=== PATIENT | female | born 1970 | race Caucasian/White ===

== ENCOUNTER 2017-04-30 14:31 | Outpatient (RCR) | payer BC ==
[~2017-04-30 14:31] MED LIST: FEXO180T94 PO; LORCET PO; RNT150T PO
== END 2017-05-02 | disposition home or self-care (01) ==
PROVIDERS: ATTEND Family Medicine
DX: M54.2 Cervicalgia (principal)

== ENCOUNTER → 2017-07-03 | Outpatient (CLI) | payer BC ==
--- NOTE | 2017-07-06 22:23 | Diagnostic Imaging Report ---
Bilateral screening mammogram 2D views with tomosynthesis The current study was also evaluated with a Computer Aided Detection (CAD) system. INDICATION: Screening. No current complaints stated on the questionnaire. COMPARISON: 11/09/2015. FINDINGS: The breasts are composed of heterogeneously dense parenchyma which may decrease mammographic sensitivity. There is no mass, architectural distortion, or suspicious cluster of calcifications. Allowing for technique and positional differences, no suspicious change is seen. IMPRESSION: Dense breasts with no definite change. ACR BI-RADS Category 2: Benign findings. Result letter will be mailed to the patient. Note: At least 10% of breast cancer is not imaged by mammography. Dictated by: Dictated on workstation # [id number]
== END ==
LOC: RAD 14:33
PROVIDERS: ATTEND Obstetrics & Gynecology
DX: Z12.31 Encounter for screening mammogram for malignant neoplasm of breast (principal)
CPT/HCPCS: 77067

== ENCOUNTER → 2018-07-20 | Outpatient (CLI) | payer BC ==
--- NOTE | 2018-07-20 15:37 | Diagnostic Imaging Report ---
INDICATION: Routine screening. COMPARISON: Comparison is made with prior mammograms from 07/03/2017 and 11/09/2015. TECHNIQUE: 2D and 3D bilateral screening mammography was performed with computer-aided detection (CAD) system. FINDINGS: Both breasts remain heterogeneously dense, limiting the sensitivity of mammography. The parenchymal pattern is stable. No dominant mass or malignant appearing microcalcifications are seen. The axillae are unremarkable. IMPRESSION: No mammographic features suspicious for malignancy are identified. ACR BI-RADS Category 1: Negative. Result letter will be mailed to the patient. Note: At least 10% of breast cancer is not imaged by mammography. Dictated by: Dictated on workstation # [id number]
== END ==
LOC: RAD 14:25
PROVIDERS: ATTEND Obstetrics & Gynecology
DX: Z12.31 Encounter for screening mammogram for malignant neoplasm of breast (principal)
CPT/HCPCS: 77067

== ENCOUNTER 2018-09-29 13:45 | Outpatient (RCR) | payer BC | END 2018-12-12 | disposition home or self-care (01) | PROVIDERS: ATTEND Physician Assistant | DX: M54.16 Radiculopathy, lumbar region (principal) ==

== ENCOUNTER → 2019-09-19 | Outpatient (CLI) | payer BC ==
--- NOTE | 2019-09-19 16:28 | Diagnostic Imaging Report ---
INDICATION: Neck mass. FINDINGS: There is a well-circumscribed mass in the posterior neck measuring 4.5 x 3.4 x 1.4 cm. This is nonspecific, however, likely reflects lipoma. Other soft tissue neoplasm certainly cannot be excluded. Recommend clinical correlation and if warranted follow-up with MRI. IMPRESSION: Nonspecific well-circumscribed mass in the posterior left neck, likely lipoma, although other soft tissue neoplasm cannot be excluded. Recommend clinical correlation and if warranted follow-up with MRI. Dictated by: Dictated on workstation # [id number]
--- NOTE | 2019-09-19 16:31 | Diagnostic Imaging Report ---
INDICATION: Screening. The current study was also evaluated with a Computer Aided Detection (CAD) system. 3-D Tomographic imaging was also performed. COMPARISON: Comparison made with prior examinations from 07/20/2018, 07/03/2017, and 11/09/2015. FINDINGS: The fibroglandular tissue is heterogeneously dense bilaterally. There is no dominant mass, spiculated lesion, or suspicious calcification identified. The skin, nipples, and axillae are unremarkable. IMPRESSION: Negative. ACR BI-RADS Category 1: Negative. Result letter will be mailed to the patient. Note: At least 10% of breast cancer is not imaged by mammography. Dictated by: Dictated on workstation # [id number]
== END ==
LOC: RAD 15:08
PROVIDERS: ATTEND Nurse Practitioner Family
DX: Z12.31 Encounter for screening mammogram for malignant neoplasm of breast (principal); D17.0 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, face and neck
CPT/HCPCS: 76536; 77067

== ENCOUNTER 2019-10-06 05:32 | Outpatient (CLI) | payer BC ==
[~2019-10-06] VITALS: Ht 157 cm; Wt 77.2 kg
[2019-10-06] MEDS ORDERED: OMEP20TA7 PO (12:40)
[2019-10-06] MEDS ORDERED: OMEG-160 PO (12:40)
[2019-10-06] MEDS ORDERED: FEXO180T84 PO (12:40)
[2019-10-06] MEDS ORDERED: FLAX10004 PO (12:40)
== END 2019-10-06 12:59 | disposition home or self-care (01) ==
LOC: PREOP 05:32
PROVIDERS: ATTEND Surgery
DX: Z01.818 Encounter for other preprocedural examination (principal)

== ENCOUNTER 2019-10-13 07:23 | Day surgery (SDC) | payer BC ==
[2019-10-13] VITALS (9 sets, daily range): BP systolic 109–135; BP diastolic 66–82
[~2019-10-13] VITALS: Ht 157 cm; Wt 77.2 kg
[~2019-10-13 07:23] MED LIST changes: +FEXO180T84 PO; +FLAX10004 PO; +OMEG-160 PO; +OMEP20TA7 PO
[2019-10-13] MEDS ORDERED: BUP/EPI 0.5% 1:200,000 (SENSORCAINE) 30 ML VIAL ONE (07:25)
[2019-10-13] MEDS ORDERED: LIDOCAINE 1% INJ 20 ML 20 ML VIAL ONE (07:46)
[2019-10-13] MEDS: LACTATED RINGERS 1,000 ML IV PRN ×3 (07:55→10:19)
[2019-10-13] MEDS ORDERED: ceFAZolin 2 GM IV Premixed 50 ML ONE (08:08)
[2019-10-13] MEDS ORDERED: ceFAZolin 2 GM IV Premixed 50 ML IV ONE (08:15)
[2019-10-13] MEDS ORDERED: ceFAZolin 2 GM/50 ML NS 50 ML IV ONE (08:15)
--- NOTE | 2019-10-13 08:19 | Progress Note-Pre Operative ---
Pre-Operative Progress Note H&P Reviewed The H&P was reviewed, patient examined and no changes noted. Date Seen by Provider: Oct 13, 2019 Time Seen by Provider: 08:15 Date H&P Reviewed: Oct 13, 2019 Time H&P Reviewed: 08:10 Pre-Operative Diagnosis: Symptomatic lipoma posterior neck and left flank HOLLIE PUGH APRN Oct 13, 2019 08:19
[2019-10-13] MEDS ORDERED: HYDR-3870 PO (08:23)
--- NOTE | 2019-10-13 08:24 | Discharge Inst-Surgical ---
D/C Lap Instructions-KIDO Reconcile Patient Problems Problems Reviewed?: Yes New, Converted, or Re-Newed RX: RX on Chart Follow Up Appt in 2 weeks Activity as tolerated No driving for 24 hours No driving while on pain medications Incentive Spirometry use every 2 hours while awake Regular Diet Symptoms to Report: Fever over 101 degree F, Nausea/Vomiting Infection Signs and Symptoms to report: Increased redness, Foul odor of wound, Increased drainage Bathing instructions: May shower Operative Area Clean/Dry; Keep incision clean/dry If any problems/questions: Contact your physician or go to Emergency Room HOLLIE PUGH APRN Oct 13, 2019 08:24
[2019-10-13] MEDS ORDERED: ACETAMINOPHEN 325 MG TABLET PO PRN (08:30)
[2019-10-13] MEDS ORDERED: morphine INJ 10 MG/ML 1ML (SYR OR VIAL) IVP PRN (08:30)
[2019-10-13] MEDS ORDERED: ONDANSETRON 4 MG/2 ML (SDV) Z0FRAN IVP PRN ×2 (08:30→11:00)
[2019-10-13] MEDS ORDERED: HYDROcodone/APAP 5 MG/325 MG (LORTAB) TAB PO ONE (08:30)
[2019-10-13] MEDS ORDERED: GLYCOPYRROLATE 0.2 MG/ML (ROBINUL) 2 ML VIAL ONE (08:49)
[2019-10-13] MEDS ORDERED: NEOSTIGMINE 3 MG/3 ML VIAL ONE (08:49)
[2019-10-13] MEDS ORDERED: ROCURONIUM 10 MG/ML 5 ML SYRINGE IV ONE (08:49)
[2019-10-13] MEDS ORDERED: DEXAMETHASONE 10 MG/ML (DECADRON) 1 ML VIAL ONE (08:49)
[2019-10-13] MEDS ORDERED: SEVOFLURANE (ULTANE) 15 ML INHAL SOLN ONE ×2 (08:49→10:42)
[2019-10-13] MEDS ORDERED: LIDOCAINE PF 2% 5 ML (XYLOCAINE) VIAL ONE (08:49)
[2019-10-13] MEDS ORDERED: ONDANSETRON 4 MG/2 ML (SDV) Z0FRAN ONE (08:49)
[2019-10-13] MEDS ORDERED: proPOfol 200 MG/20 ML (DIPRIVAN) VIAL IV ONE (08:49)
[2019-10-13] MEDS ORDERED: MIDAZOLAM 2 MG/2 ML (VERSED) VIAL ONE (08:50)
[2019-10-13] MEDS ORDERED: fentaNYL INJECTION 100 MCG/2 ML AMP ONE ×2 (08:50→10:02)
[2019-10-13] MEDS ORDERED: HYDR-4227 PO (09:09)
--- NOTE | 2019-10-13 10:39 | Progress Note-Post Operative ---
Post-Operative Progess Note Surgeon (s)/Phosphorus Processing Supervisor (s) Surgeon BEST JUAREZ MD Phosphorus Processing Supervisor: miguel holder EPIC CUPID ANALYST Pre-Operative Diagnosis Symptomatic lipoma posterior neck and left flank and skin lesion left flank Post-Operative Diagnosis lipoma subfascial((12x8cm), left flank lipoma(2x2cm), left flank skin lesion(1cm) Procedure & Operative Findings Date of Procedure 10/13/19 Procedure Performed/Findings excision subfacial lipoma neck(12x8cm), excision left flank lesion(2x2cm), left flank skin lesion(1cm) Anesthesia Type get Estimated Blood Loss Estimated blood loss (mL): minimal Specimens/Packing Specimens Removed back lipoma, lt flank lipoma(2cm), lt flank skin lesion 1cm BEST JUAREZ MD Oct 13, 2019 10:39
[2019-10-13] MEDS ORDERED: morphine INJ 10 MG/ML 1ML (SYR OR VIAL) IVP ONE (11:00)
[2019-10-13] MEDS ORDERED: MEPERIDINE (DEMEROL) INJ 50 MG/ML IVP ONE (11:00)
[2019-10-13] MEDS ORDERED: fentaNYL INJECTION 100 MCG/2 ML AMP IVP ONE (11:00)
[2019-10-13] MEDS ORDERED: HYDROcodone/APAP 5 MG/325 MG (LORTAB) TAB ONE (12:07)
--- NOTE | 2019-10-13 12:53 | Anesthesia-General Post-Op ---
General Patient Condition Mental Status/LOC: Same as Preop Cardiovascular: Satisfactory Nausea/Vomiting: Absent Respiratory: Satisfactory Pain: Controlled Complications: Absent Post Op Complications Complications None Follow Up Care/Instructions Patient Instructions None needed. Anesthesia/Patient Condition Patient Condition Patient is doing well, no complaints, stable vital signs, no apparent adverse anesthesia problems. No complications reported per nursing. DONALD TRACY CRNA Oct 13, 2019 12:53
--- NOTE | 2019-10-13 13:31 | OPERATIVE REPORT ---
DATE OF SERVICE: 10/13/2019 ATTENDING PRIMARY CARE PHYSICIAN: Milena Cruz DO PREOPERATIVE DIAGNOSES: Symptomatic lipoma base of the neck, left flank, symptomatic skin lesion left flank, 6 mm in size. POSTOPERATIVE DIAGNOSES: Symptomatic lipoma base of the neck, left flank, symptomatic skin lesion left flank, 6 mm in size with the lesion of the base of the neck 12 x 8 cm in size and some partial subcutaneous lipoma of the left flank 2 x 2 cm in size. Skin lesion was excised, diameter 2 cm in size, left flank. PROCEDURE: 1. Excision of subfascial lipoma base of the neck, 12 x 8 cm in size. 2. Excision of subcutaneous lipoma, left flank 2 x 2 cm. 3. Excision of skin lesion left flank, 1 cm in size. SURGEON: Jamal Juarez MD DIRECTOR WHOLESALE: Nawaf Concepcion APRN ANESTHESIA: General endotracheal. ESTIMATED BLOOD LOSS: Minimal. FINDINGS: Same as postoperative diagnoses. DISPOSITION: The patient tolerated the procedure well. INDICATIONS: The patient is a 48-year-old female who was referred over to us for symptomatic lesion at the base of the left neck for greater than past 10 years. It got larger in size and become painful. Upon examination, she was found to have what appeared to be a lipoma. She also has had a lesion of the left flank, which has become painful and this is more subcutaneous and a small approximately 2 x 2 cm in size. She also does have symptomatic skin lesions of the left flank, which appears to be a benign skin lesion 6 mm in size. DESCRIPTION OF PROCEDURE: The patient was brought to the operating room, laid supine on the table. After adequate IV pain and sedative medications and general endotracheal intubation, the back, neck and flank were prepped and draped in standard surgical fashion. A 0.5% Marcaine with epinephrine was then used to anesthetize overlying skin. The base of the neck and a transverse skin incision made using a 15 blade. We then opened the subcutaneous tissue and the fascia. A large lipoma was identified, which was not well circumscribed and dissected out in a systematic fashion using blunt dissection as well as electrocautery. Good hemostasis was observed. The excised dimensions of the lesion were 12 x 8 cm in size. Subsequently, the fascia was then reapproximated using 3-0 Vicryl interrupted sutures. The subcutaneous tissue was then reapproximated using 3-0 Vicryl suture and the skin was closed using 4-0 Monocryl in running subcuticular suture. Wound was then cleaned and covered with Dermabond. We then proceeded with excision of the left flank lipoma. This was subcutaneous and the skin was anesthetized using 0.5% Marcaine with epinephrine. A transverse skin incision was made using 15 blade and the lipoma was excised using blunt dissection as well as electrocautery. The excised diameter was 2.2 cm in size. A lesion just inferior to this, which appeared to be a benign skin lesion approximately 6 mm in size was identified. This was excised with a rim of normal skin approximately 1 cm in size. This was done using a 15 blade. Good hemostasis was observed. Both of the skin incisions were closed using 4-0 Monocryl interrupted sutures. The patient tolerated the procedure well. We will start IV and oral pain medication as well as a clear liquid diet. When she is tolerating clears, has good pain control with oral pain medications and ambulating well, we will discharge her home. She will be instructed to do no heavy lifting or exertion for the next two weeks. Job ID: [id number] DocumentID: [id number] Dictated Date: 10/13/2019 10:45:03 Knurling Machine Tender Date: 10/13/2019 13:31:05 Dictated By: JAMAL JUAREZ MD
--- OUTSIDE RECORDS SUMMARY | 2019-10-15 03:31 | XMS REPORT | CCD ---
Author Author Stefanie Cruz D.O. Organization [facility] Address [address] [place] [address] Phone Care Team Providers Care C Web Developer Name Role Phone Milena Cruz D.O., PP Unavailable CCM Unavailable Summary Purpose Interface Exchange Insurance Providers Payer name Policy type / Coverage type Covered constitution party ID Effective Begin Date Effective End Date Blue Cross Blue Shield Blue Cross/Blue Shield [id number] 2018 Unknown Family History Family History data not found Social History Social History Element Codes Description Effective Dates Marital status Unknown 08/28/[address]: [id number] Never smoker 08/28/2011 Allergies, Adverse Reactions, Alerts Substance Reaction Codes Entered Date Inactivated Date Status * NO KNOWN ENVIRONMENTAL ALLERGIES Unknown 09/07/2019 N o Inactive Date Active * NO KNOWN FOOD ALLERGIES Unknown 09/07/2019 No Inactiv e Date Active * NO KNOWN DRUG ALLERGIES Unknown 10/09/2010 No Inactiv e Date Active Problems Condition Codes Effective Dates Condition Status 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, face and neck ICD-9: 214.1 ICD-10: D17.0 03/19/2017 Active Elevated blood pressure reading ICD-9: 796.2 ICD-10: R03.0 09/07/2019 Active Encounter for general adult medical examination withou t abnormal findings ICD-9: V70.9 ICD-10: Z00.00 04/16/2016 Active Screening for malignant neoplasm of breast ICD-9: V76. 10 ICD-10: Z12.39 09/07/2019 Active Tinnitus ICD-9: 388.30 ICD-10: H93.19 09/07/2019 Active Low back pain ICD-9: 724.2 ICD-10: M54.5 09/01/2018 Active Radiculopathy, lumbar region ICD-9: 724.4 ICD-10: M54.16 09/01/2018 Active Acute upper respiratory infection, unspecified ICD-9: 465.9 ICD-10: J06.9 08/16/2018 Active Hematuria, unspecified ICD-9: 599.70 ICD-10: R31.9 06/21/2018 Active Urinary tract infection, site not specified ICD-9: 599 .0 ICD-10: N39.0 06/21/2018 Active Gastro-esophageal reflux disease without esophagitis I CD-9: 530.81 ICD-10: K21.9 03/19/2017 Active Cervicalgia ICD-9: 723.1 ICD-10: M54.2 03/19/2017 Active Abnormal weight gain ICD-9: 783.1 ICD-10: R63.5 04/16/2016 Active Body mass index (BMI) 29.0-29.9, adult ICD-9: V85.25 ICD-10: Z68.29 04/16/2016 Active ROUTINE MEDICAL EXAM ICD-9: V70.0 02/02/2012 Active Shoulder pain, bilateral ICD-9: 719.41 01/17/2015 Active VACCINE FOR TDAP ICD-9: V06.1 ICD-10: Z23 01/19/2014 Active URINARY TRACT INFECTION ICD-9: 599.0 01/03/2014 Active Flank pain ICD-9: 789.00 11/25/2013 Active DYSPHAGIA, NOS ICD-9: 787.20 04/18/2013 Active Foot pain ICD-9: 729.5 04/18/2013 Active Benign positional vertigo ICD-9: 386.11 08/28/2011 Active SINUSITIS, ACUTE ICD-9: 461.9 08/28/2011 Active *Denies any medical problems Unknown 10/09/2010 Act rico Neck pain ICD-9: 723.1 10/09/2010 Active SPASM OF MUSCLE ICD-9: 728.85 10/09/2010 Active Thoracic back pain ICD-9: 724.1 10/09/2010 Active Thoracic radiculopathy ICD-9: 724.4 10/09/2010 Active Medications Medication Codes Instructions Start Date Stop Date Status Fill Instructions omeprazole 40 mg capsule,delayed release RxNorm: 479373 TAKE ONE CAPSULE BY MOUTH DAILY 10/04/2019 No Stop Date Active estradiol 1 mg tablet RxNorm: 556223 1 Tablet(s) Oral QD 09/07/2019 No Stop Date Active fluticasone propionate 50 mcg/actuation nasal spray,suspensi on RxNorm: 5979911 2 [place] Nasal every night at bedtime 09/07/2019 12/05/2019 Active omeprazole 40 mg capsule,delayed release RxNorm: 801046 TAKE ONE CAPSULE BY MOUTH DAILY 04/05/2019 06/03/2019 Inactive omeprazole 40 mg capsule,delayed release RxNorm: 897799 TAKE ONE CAPSULE BY MOUTH DAILY 01/03/2019 02/01/2019 Inactive Celebrex 200 mg capsule RxNorm: 624347 TAKE ONE CAPSULE BY MOUTH TWICE A DAY NEEDED 10/26/2018 11/24/2018 Inactive fluticasone 50 mcg/actuation nasal spray,suspension RxNorm: 7628445 2 [place] NASAL QHS 10/18/2018 01/15/2019 Inactive omeprazole 40 mg capsule,delayed release RxNorm: 252096 TAKE ONE CAPSULE BY MOUTH DAILY 10/01/2018 10/30/2018 Inactive Celebrex 200 mg capsule RxNorm: 778195 TAKE ONE CAPSULE BY MOUTH TWICE A DAY NEEDED 09/27/2018 10/25/2018 Inactive Medrol (Driss) 4 mg tablets in a dose pack RxNorm: 925747 Tablet(s) PO as directed 09/02/2018 09/06/2019 Inactive cyclobenzaprine 10 mg tablet RxNorm: 240891 1/2-1 Table t(s) PO TID as needed for muscle spasm 09/01/2018 No Stop Date Active Celebrex 200 mg capsule RxNorm: 124435 1 Capsule(s) PO BID for pain 09/01/2018 09/26/2018 Inactive Zithromax Z-Driss 250 mg tablet RxNorm: 088023 Tablet(s) take as directed PO 08/16/2018 08/31/2018 Inactive Medrol (Driss) 4 mg tablets in a dose pack RxNorm: 899097 Tablet(s) take as directed PO 08/16/2018 08/31/2018 Inactive Bactrim DS 800 mg-160 mg tablet RxNorm: 660908 1 Tablet(s) PO BID 1 08/28/2017 06/27/2018 Inactive Bactrim DS 800 mg-160 mg tablet RxNorm: 361752 1 Tablet(s) PO BID 1 08/28/2017 07/04/2018 Inactive Macrobid 100 mg capsule RxNorm: 959958 1 Capsule(s) PO BID 06/23/20 18 06/22/2018 Inactive Macrobid 100 mg capsule RxNorm: 125972 1 Capsule(s) PO BID 06/23/20 18 06/27/2018 Inactive fluticasone 50 mcg/actuation nasal spray,suspension RxNorm: 4415662 SPRAY TWO SPRAYS IN EACH NOSTRIL ONCE DAILY EVERY NIGHT AT BEDTIME 04/13/201804/2018 Inactive omeprazole 40 mg capsule,delayed release RxNorm: 522645 1 Capsu le(s) PO QD 04/06/2018 09/30/2018 Inactive fluticasone 50 mcg/actuation nasal spray,suspension RxNorm: 7418671 2 [place] NASAL QHS 09/28/2017 09/27/2017 Inactive omeprazole 40 mg capsule,delayed release RxNorm: 113315 1 Capsu le(s) PO QD 03/19/2017 04/06/2018 Inactive Flonase Allergy Relief 50 mcg/actuation nasal spray,suspensi on RxNorm: 9716743 2 [place] NASAL QHS to each nostril 02/23/2017 09/28/2017 Inactive Flonase Allergy Relief 50 mcg/actuation nasal spray,suspensi on RxNorm: 5262986 2 [place] NASAL QHS to each nostril 06/11/2016 02/23/2017 Inactive phentermine 37.5 mg tablet RxNorm: 812769 1 Tablet(s) PO QD 016 05/16/2016 Inactive Flonase 50 mcg/actuation nasal spray,suspension RxNorm: 1797 933 2 [place] NASAL QHS 12/24/2015 06/11/2016 Inactive [SAVINGS FOR UNI NSURED PATIENTS -- BIN:[id number], PCN: ASPROD1, Group: [id number], ID# [id number], Process claim through [employer], for questions: . THIS IS NOT INSURANCE.] Flonase 50 mcg/actuation nasal spray,suspension RxNorm: 8963 23 2 [place] NASAL QHS 04/25/2015 12/24/2015 Inactive [SAVINGS FOR UNI NSURED PATIENTS -- BIN:[id number], PCN: ASPROD1, Group: [id number], ID# [id number], Process claim through [employer], for questions: . THIS IS NOT INSURANCE.] ibuprofen 800 mg tablet RxNorm: 064768 1 Tablet(s) PO BID 03/26/2015 04/24/2015 Inactive ibuprofen 800 mg tablet RxNorm: 746311 1 Tablet(s) PO BID 02/19/2015 03/26/2015 Inactive ibuprofen 800 mg tablet RxNorm: 899077 1 Tablet(s) PO BID 01/18/2015 02/19/2015 Inactive Flonase 50 mcg/actuation nasal spray,suspension RxNorm: 8963 23 2 [place] NASAL QHS 08/25/2014 04/24/2015 Inactive [SAVINGS FOR UNI NSURED PATIENTS -- BIN:[id number], PCN: ASPROD1, Group: [id number], ID# [id number], Process claim through [employer], for questions: . THIS IS NOT INSURANCE.] Flonase 50 mcg/actuation nasal spray,suspension RxNorm: 8963 23 2 [place] NASAL QHS 05/29/2014 08/24/2014 Inactive [SAVINGS FOR UNI NSURED PATIENTS -- BIN:[id number], PCN: ASPROD1, Group: [id number], ID# [id number], Process claim through [employer], for questions: . THIS IS NOT INSURANCE.] Macrobid 100 mg capsule RxNorm: 517734 1 Capsule(s) PO BID 01/04/20 14 01/09/2014 Inactive [SAVINGS FOR UNINSURED PATIE NTS -- BIN:[id number], PCN: ASPROD1, Group: [id number], ID# [id number], Process claim through [employer], for questions: . THIS IS NOT INSURANCE.] Macrobid 100 mg capsule RxNorm: 196723 1 Capsule(s) PO BID 01/04/20 14 01/02/2014 Inactive Flonase 50 mcg/actuation nasal spray,suspension RxNorm: 8963 23 2 [place] NASAL QHS 10/13/2013 05/29/2014 Inactive Zantac 300 mg tablet RxNorm: 953534 Tablet(s) PO TAKE O NE TABLET BY MOUTH AT BEDTIME 03/28/2013 03/18/2017 Inactive Zantac 300 mg tablet RxNorm: 755287 1 Tablet(s) PO QHS 10/26/2012 Inactive flax seed oil RxNorm: 1 PO QD No Start Date Active Fish Oil 1,000 mg capsule RxNorm: 1 Capsule(s) PO QD No Start Date Active Zyrtec 10 mg tablet RxNorm: 0313767 1 Tablet(s) PO QD No Start Date Active Medrol (Driss) 4 mg tablets in a dose pack RxNorm: 155951 Tablet(s) PO as directed No Start Date 09/01/2018 Inactive omeprazole 40 mg capsule,delayed release RxNorm: 111225 1 Capsu le(s) PO QD No Start Date 03/18/2017 Inactive Voltaren 1 % Topical Gel RxNorm: 720739 1 Gram(s) TOP QID No Start Date 03/18/2017 Inactive Flonase 50 mcg/actuation nasal spray,suspension RxNorm: 8963 23 2 [place] NASAL QHS No Start Date 10/13/2013 Inactive Nexium 40 mg capsule,delayed release RxNorm: 709126 1 Capsule(s ) PO QD No Start Date 03/18/2017 Inactive Medication Administered No Medication Administered data Immunizations Vaccine Codes Date Status Tetanus, Diptheria, Pertussis CVX: 115 01/19/2014 Results No Results data Procedures Procedure Codes Date THER/PROPH/DIAG INJ SC/IM CPT-4: 17396 09/01/2018 KETOROLAC TROMETHAMINE INJ CPT-4: J1885 09/01/2018 URINALYSIS NONAUTO W/O SCOPE CPT-4: 54034 06/21/2018 URINE CULTURE/ COLONY COUNT CPT-4: 77770 06/21/2018 URINE CULTURE/ COLONY COUNT CPT-4: 35902 02/07/2014 URINALYSIS NONAUTO W/O SCOPE CPT-4: 03038 02/07/2014 TDAP VACCINE 7 YRS/> IM CPT-4: 68919 01/19/2014 IMMUNIZATION ADMIN CPT-4: 33911 01/19/2014 URINE CULTURE/ COLONY COUNT CPT-4: 72456 01/03/2014 URINALYSIS NONAUTO W/O SCOPE CPT-4: 02205 01/03/2014 URINE CULTURE/ COLONY COUNT CPT-4: 54828 11/25/2013 INJ TRIGGER POINT 1/2 MUSCL CPT-4: 53456 10/09/2010 TRIAMCINOLONE ACET INJ NOS CPT-4: J3301 10/09/2010 METHYLPREDNISOLONE 40 MG INJ CPT-4: J1030 10/09/2010 Vital Signs Date Vital 09/07/2019 Blood Pressure 1: 136/94 Code: 8480-6 BMI: 32.2 Code: 92258-1 Heart Rate 1: 84 bpm Height: 5'2" Respiratory Rate: 20 bpm SpO2: 98% Tempera ture: 36.8 (C) / 98.2 (F) Weight: 173 lbs 09/01/2018 BMI: 32.0 Code: 57110-9 Heart Rate 1: 76 bpm Height: 5 '2" Respiratory Rate: 20 bpm Temperature: 36.9 (C) / 98.4 (F) Weight: 172 lbs 08/16/2018 Blood Pressure 1: 130/80 Code: 8480-6 Heart Rate 1: 91 bpm Respiratory Rate: 18 bpm SpO2: 97% Temperature: 36.7 (C) / 98.1 (F) We ight: 169 lbs 03/30/2018 Blood Pressure 1: 136/82 Code: 8480-6 BMI: 30.3 Code: 67796-2 Heart Rate 1: 72 bpm Height: 5'2" Respiratory Rate: 20 bpm SpO2: 98% Tempera ture: 36.8 (C) / 98.2 (F) Weight: 163 lbs 03/19/2017 Blood Pressure 1: 132/82 Code: 8480-6 BMI: 30.2 Code: 16680-2 Heart Rate 1: 72 bpm Height: 5'2" Respiratory Rate: 20 bpm Temperature: 36 .6 (C) / 97.9 (F) Weight: 165 lbs 04/17/2016 Blood Pressure 1: 124/82 Code: 8480-6 BMI: 29.6 Code: 50735-2 Heart Rate 1: 82 bpm Height: 5'2" Respiratory Rate: 22 bpm SpO2: 98% Tempera ture: 37.0 (C) / 98.6 (F) Weight: 162 lbs 01/18/2015 Blood Pressure 1: 118/78 Code: 8480-6 BMI: 27.8 Code: 29019-9 Heart Rate 1: 78 bpm Height: 5'2" Respiratory Rate: 20 bpm Temperature: 36 .3 (C) / 97.3 (F) Weight: 152 lbs 04/18/2013 Blood Pressure 1: 110/62 Code: 8480-6 BMI: 26.2 Code: 70383-1 Heart Rate 1: 66 bpm Height: 5'2" Respiratory Rate: 22 bpm Temperature: 36 .3 (C) / 97.4 (F) Weight: 143 lbs 10/26/2012 Blood Pressure 1: 124/78 Code: 8480-6 BMI: 26.2 Code: 47276-5 Heart Rate 1: 76 bpm Height: 5'3" Respiratory Rate: 20 bpm Temperature: 36 .6 (C) / 97.9 (F) Weight: 148 lbs 02/02/2012 Blood Pressure 1: 122/80 Code: 8480-6 BMI: 26.2 Code: 76697-7 Heart Rate 1: 72 bpm Height: 5'3" Respiratory Rate: 20 bpm Temperature: 36 .7 (C) / 98.0 (F) Weight: 148 lbs 08/28/2011 Blood Pressure 1: 114/60 Code: 8480-6 BMI: 24.8 Code: 08626-2 Heart Rate 1: 72 bpm Height: 5'3" Respiratory Rate: 20 bpm Temperature: 36 .5 (C) / 97.7 (F) Weight: 140 lbs 01/07/2011 Blood Pressure 1: 120/74 Code: 8480-6 BMI: 27.1 Code: 30891-0 Height: 5'2" Weight: 148 lbs 10/09/2010 Blood Pressure 1: 114/72 Code: 8480-6 Heart Rate 1: 76 bpm Temperature: 36.6 (C) / 97.8 (F) Weight: 148 lbs Functional Status No Functional Status data Reason For Visit Reason For Visit Effective Dates Notes well woman exam (40-65 years) 09/07/2019 Refill marianna nase back pain 09/01/2018 postnasal drip 08/16/2018 lab draw 06/21/2018 here to give UA for UTI type symptoms Annual Checkup 03/30/2018 Wellness Physical gastroesophageal reflux 03/19/2017 Annual Checkup 04/17/2016 Wellness-Patient is due for lab workLast Nomal Mammogram shoulder pain 01/18/2015 Patient due for labs Last normal Mammogram summer 2013 painful urination 02/07/2014 injection(s) 01/19/2014 TDAP painful urination 01/03/2014 polyuria 11/25/2013 dysphagia 04/18/2013 Has trouble swallowi ng pills. 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, 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] Diagnosis: Encounter for general adult medical examination without abnormal findings[ICD10: Z00.00] Diagnosis: Elevated blood pressure reading[ICD10: R03.0] Diagnosis: Screening for malignant neoplasm of breast[ICD10: Z12.39] Diagnosis: Tinnitus[ICD10: H93.19] Angelieduard Trujillomahesh FERRELL WhoAPIStephanie [employer] CPT-4: 42590 09/07/2019 ([id number]) OFFICE/OUTPATIENT VISIT EST Diagnosis: Low back pain[ICD10: M54.5] Diagnosis: Radiculopathy, lumbar region[ICD10: M54.16] Milena FERRELL WhoAPIStephanie [employer] CPT-4: 82429 09/01/2018 ([id number]) OFFICE/OUTPATIENT VISIT EST Diagnosis: Acute upper respiratory infection, unspecified[ICD10: J06.9] Angeli Trujillomahesh GALLOMILENA WhoAP[employer]tephanie [employer] CPT-4: 78744 08/16/2018 ([id number]) NURSE/OUTPATIENT VISIT EST Diagnosis: Urinary tract infection, site not specified[ICD10: N39.0] Diagnosis: Hematuria, unspecified[ICD10: R31.9] Milena AGUILAR [employer] CPT-4: 00763 06/21/2018 ([id number]) PREV VISIT EST AGE 40-64 Diagnosis: Encounter for general adult medical examination without abnormal findings[ICD10: Z00.00] Diagnosis: Gastro-esophageal reflux disease without esophagitis[ICD10: K21.9] Milena BOBONDGIANNA MARTIN [facility] CPT-4: 94325 03/30/2018 ([id number]) OFFICE/OUTPATIENT VISIT EST Diagnosis: Gastro-esophageal reflux disease without esophagitis[ICD10: K21.9] Diagnosis: Cervicalgia[ICD10: M54.2] Diagnosis: 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, 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] Mil[facility] CPT - 4: 15096 03/19/2017 ([id number]) PREV VISIT EST AGE 40-64 Diagnosis: Encounter for general adult medical examination without abnormal findings[ICD10: Z00.00] Diagnosis: Abnormal weight gain[ICD10: R63.5] Diagnosis: Body mass index (BMI) 29.0-29.9, adult[ICD10: Z68.29] Delilah [facility]Z DO [facility] CPT-4: 21274 04/17/2016 ([id number]) PREV VISIT EST AGE 40-64 Diagnosis: ROUTINE MEDICAL EXAM[ICD9: V70.0] Diagnosis: Shoulder pain, bilateral[ICD9: 719.41] Liz Bolaños [facility] CPT-4: 39400 01/18/2015 ([id number]) OFFICE/OUTPATIENT VISIT EST Diagnosis: URINARY TRACT INFECTION[ICD9: 599.0] Mil[facility] CPT-4: 82526 02/07/2014 ([id number]) OFFICE/OUTPATIENT VISIT EST Diagnosis: VACCINE FOR TDAP[ICD10: Z23] Milena BOBONDGIANNA MARTIN [facility] CPT-4: 68239 01/19/2014 ([id number]) OFFICE/OUTPATIENT VISIT EST Diagnosis: URINARY TRACT INFECTION[ICD9: 599.0] Milena BOBONDER [facility] CPT-4: 60510 01/03/2014 ([id number]) OFFICE/OUTPATIENT VISIT EST Diagnosis: Flank pain[ICD9: 789.00] Milena Smythgianna MILENA Maddison NEELY SHELBY [facility] CPT-4: 56463 11/25/2013 ([id number]) OFFICE/OUTPATIENT VISIT EST Diagnosis: DYSPHAGIA, NOS[ICD9: 787.20] Diagnosis: Foot pain[ICD9: 729.5] Milena Torres DO [employer] CPT-4: 39723 04/18/2013 ([id number]) PREV VISIT EST AGE 40-64 Diagnosis: ROUTINE MEDICAL EXAM[ICD9: V70.0] Milena CRUZ DO [employer] CPT-4: 00028 10/26/2012 ([id number]) PREV VISIT EST AGE 40-64 Diagnosis: ROUTINE MEDICAL EXAM[ICD9: V70.0] Milena CRUZ DO [employer] CPT-4: 84713 02/02/2012 OFFICE/OUTPATIENT VISIT EST Diagnosis: SINUSITIS, ACUTE[ICD9: 461.9] Diagnosis: Benign positional vertigo[ICD9: 386.11] Milena CRUZ DO [employer] CPT-4: 17242 08/28/2011 ([id number]) OFFICE/OUTPATIENT VISIT EST Milena CRUZ DO [employer] CPT-4: 37134 10/09/2010 Plan of Care Planned Activity Notes Codes Status Date Visit Diagnosis Plan: Elevated blood pressure reading Discussion: rtc 2 weeks for bp check. ICD-9 : 796.2 ICD-10 : R03.0 09/07/2019 Visit Diagnosis Plan: Screening for malignant neoplasm of breast Discussion: mammogram to be ordered. ICD-9 : V76.10 ICD-10 : Z12.39 09/07/2019 Visit Diagnosis Plan: 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, face and neck Discussion: patient reports increase in size and pain so will order ultrasound of area to make sure no further concerns have developed. ICD-9 : 214.1 ICD-10 : D17.0 09/07/2019 Visit Diagnosis Plan: Tinnitus Discussion: could be r/ t elevated bp. started shortly after starting estradiol so patient to call dr. gonzalez's office and notify them. will rtc 2 weeks for bp check and see if symptoms improved. ICD-9 : 388.30 ICD-10 : H93.19 09/07/2019 Visit Diagnosis Plan: Encounter for [facility] adult medical examination without abnormal findings Discussion: will update fasting labs thr [facility] lab. had colonoscopy in 2012 and not due until 2022. sees carlos for pap. due for mammogram and will order. ICD-9 : V70.9 ICD-10 : Z00.00 09/07/2019 Appointment: Angeli Rust [address] [address] Annual Well Visit 09/07/2019 Care Plan: MAMMOGRAM SCREENING LOINC : 2 6347-5 Pending 09/07/2019 Appointment: Angeli Rust [address] [place] [address] US RESCHEDULED 08/31/2019 Visit Diagnosis Plan: Low back pain Discussion: Stretc hes, Ice, topical muscle rub OMT done Toradol now Celebrex and flexeril Recheck in 1 week if persists or worsening ICD-9 : 724.2 ICD-10 : M54.5 09/01/2018 Appointment: Milena Cruz WPtel: [phone] [facility] ACUTE ILLNESS 09/01/2018 Patient Education: cyclobenzaprine- [employer] Coupon [id number] [email or web address] Completed 09/01/2018 Visit Diagnosis Plan: Acute upper respiratory infectio n, unspecified Discussion: zpack and medrol pack prescribed for symptom management. ok to continue with claritin daily. instructed to use humidifier at home in room to assist with drainage, especially with symptoms worse upon awakening. ICD-9 : 465.9 ICD-10 : J06.9 08/16/2018 Appointment: Angeli Rust [address] [place], [place] [id number] ACUTE ILLNESS 08/16/2018 Patient Education: Medrol (Driss)- [employer] Coupon [phone] [email or web address] Completed 08/16/2018 [facility]ment: [facility] [phone] [facility] [facility] 06/21/2018 Visit Diagnosis Plan: Gastro-esophageal reflux disease without esophagitis Discussion: Stable on omeprazole--patient has had esophageal stricture in past as well as overproduction in acid on pH manometry so has to stay with PPI and discussed repeat EGD if having worsening symptoms or dysphagia ICD-9 : 530.81 ICD-10 : K21.9 03/30/2018 Visit Diagnosis Plan: Encounter for [facility] adult medical examination without abnormal findings Discussion: Update fasting lab Discussed diet/exercise at length including weight bearing exercise At least 1000-1500mg calcium a day between diet and supplement in addition to Vitamin D 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 ICD-9 : V70.9 ICD-10 : Z00.00 03/30/2018 Appointment: [facility] [phone] [facility] [facility] 03/30/2018 Patient Education: Patient Medication Summary Completed 03/30/2018 Visit Diagnosis Plan: Cervicalgia Discussion: Start PT ICD-9 : 723.1 ICD-10 : M54.2 03/19/2017 Visit Diagnosis Plan: 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, face and neck Discussion: Discussed observe vs removal ICD-9 : 214.1 ICD-10 : D17.0 03/19/2017 Visit Diagnosis Plan: Gastro-esophageal reflux disease without esophagitis Discussion: Continue omeprazole Discussed group home use of PPIs and risk but patient has tried H2 Blockers and has breakthrough symptoms Start chewable MV daily ICD-9 : 530.81 ICD-10 : K21.9 03/19/2017 Appointment: [facility] [phone] [facility] [facility] 03/19/2017 Patient Education: Patient Medication Summary Completed 03/19/2017 Visit Plan: Fasting labs ordered - cbc, cmp, lipids, tsh, free t4 Weight loss counseling provided Phentermine #1 prescribed Recheck visit in office with me in 1 month Will continue until BMI <27 or 4-6 months total Discussed adverse side effects of phentermine to monitor for - stop if any occur 04/17/2016 Appointment: Delilah Jiang [phone] Annual Well Visit 04/17/2016 Patient Education: Patient Medication Summary Completed 04/17/2016 Appointment: Liz Bolaños WPtel: [address] [place], [place] [phone] ACUTE ILLNESS 04/12/2015 Visit Plan: Will return for fasting labs - CBC, CMP, TSH, Free T4, Lipid Panel Start Shoulder Stretches and Bilateral ROM exercises Ibuprofen 800 mg PO bid Recommended follow-up with Nicole Mayer 01/18/2015 Appointment: Liz Bolaños WPtel: [address] [place] [address] 01/17 appt confirmed cn Annual Well Visit 2014 Patient Education: Patient Medication Summary Completed 01/18/2015 Appointment: Milena Cruz WPtel: [address] [place] [address] UA 02/07/2014 Patient Education: Patient Medication Summary Completed 02/07/2014 Appointment: Milena Cruz WPtel: [address] [place] [address] INJECTION 01/19/2014 Patient Education: Patient Medication Summary Completed 01/19/2014 Appointment: Liz Bolaños WPtel: [address] [place], [place] [phone] ACUTE ILLNESS 01/04/2014 Appointment: Milena Cruz WPtel: [address] [place], [place] [id number] UA 01/03/2014 Patient Education: Patient Medication Summary Completed 01/03/2014 Appointment: Milena Cruz WPtel: [address] [place], [place] [phone] UA 11/25/2013 Patient Education: Patient Medication Summary Completed 11/25/2013 Visit Plan: Proceed with EGD Continue Za ntac but increase to BID Seeing podiatry for feet but will try Voltaren gel 04/18/2013 Appointment: Milena Cruz WPtel: [address] [place] [address] ACUTE ILLNESS 04/18/2013 Patient Education: Patient Medication Summary Completed 04/18/2013 Appointment: Milena Cruztel: [address] [place], [place] [phone] FOLLOW UP 01/25/2013 Visit Plan: Start daily Calcium with Vit D 500mg and fish oil 1gram daily Zyrtec routinely and add flonase Add Zantac 300mg q HS If dysphagia continues then will need EGD Check fasting lab 10/26/2012 Appointment: Milena Cruztel: [address] [place] [address] Annual Well Visit 10/26/2012 Patient Education: Patient Medication Summary Completed 10/26/2012 Visit Plan: Check fasting lab 02/02/2012 Appointment: Milena Cruztel: [address] [place], [place] [phone] PAP 02/02/2012 Patient Education: Patient Medication Summary Completed 02/02/2012 Visit Plan: Vestibular exercises Meclizi ne 25mg po TID Nasonex BID 08/28/2011 Appointment: Milena Cruztel: [address] [place], [place] [phone] ACUTE ILLNESS 08/28/2011 Patient Education: Patient Medication Summary Completed 08/28/2011 Appointment: Milena Cruz WPtel: [address] [place] [address] BP CHECK 01/07/2011 Patient Education: Patient Medication Summary Completed 01/07/2011 Visit Plan: OMT done to thoracics Trigge r point injection as above Arthrotec 75mg po BID Pt will call in 5 days on how neck doing Pt will return at later date for mole removal to left axilla 10/09/2010 Appointment: Milena Cruztel: [address] [place] [id number] ACUTE ILLNESS 10/09/2010 Patient Education: Patient Medication Summary Completed 10/09/2010 Appointment: AbelGeorgina sandovaljanel LESTERtel: [phone] [facility] WEIGHT CHECK 11/07/2009 Patient Education: Patient Medication Summary Completed 11/07/2009 Referral: Milena Cruztel: [phone] [id number] 04/18 patient will schedule appt Initiated Instructions Comment . Fasting labs ordered - cbc, cmp, lipid s, tsh, free t4 Weight loss counseling provided Phentermine #1 prescribed Recheck visit in office with me in 1 month Will continue until BMI <27 or 4-6 months total Discussed adverse side effects of phentermine to monitor for - stop if any occur . Will return for fasting labs - CBC, CM P, TSH, Free T4, Lipid Panel Start Shoulder Stretches and Bilateral ROM exercises Ibuprofen 800 mg PO bid Recommended follow-up with Nicole Mayer . Proceed with EGD Continue Zantac but increase to BID Seeing podiatry for feet but will try Voltaren gel . Start daily Calcium with Vit D 500mg a nd fish oil 1gram daily Zyrtec routinely and add flonase Add Zantac 300mg q HS If dysphagia continues then will need EGD Check fasting lab . Check fasting lab . Vestibular exercises Meclizine 25mg po TID Nasonex BID . OMT done to thoracics Trigger point injection as above Arthrotec 75mg po BID Pt will call in 5 days on how neck doing Pt will return at later date for mole removal to left axilla Medical Equipment No Medical Equipment data Health Concerns Section Health Concerns data not found Goals Section Goals data not found Interventions Section Interventions data not found Health Status Evaluations/Outcomes Section Health Status Evaluations/Outcomes data not found Advance Directives No Advance Directive data
--- OUTSIDE RECORDS SUMMARY | 2019-10-15 03:31 | XMS REPORT ---
Author Author Stefanie MANZANO Organization [facility] Address [address] [place] [address] Care Team Providers Care Order Packer Or Packager Name Role Phone BLANK MANZANO Unavailable PROBLEMS Type Condition ICD9-CM Code [id number] Code Onset Dates Condition S tatus SNOMED Code Problem Anxiety disorder, unspecified type F41.9 Active [id number] ALLERGIES No Information ENCOUNTERS Encounter Location Date Diagnosis [place] [address] [place] [id number] [address] [place] [phone] May, Encounter for immunization Z 23 [place] [address] [place] [id number] [address] [place] [phone] Apr, Anxiety disorder, unspecifie d type F41.9 [place] [id number] [facility] [id number] [address] [place] [phone] Apr, Anxiety disorder, unspecifie d type F41.9 [place] [address] [facility] [id number] [address] [place] [phone] Mar, Anxiety disorder, unspecifie d type F41.9 IMMUNIZATIONS No Known Immunizations SOCIAL HISTORY Never Assessed REASON FOR VISIT f/u PLAN OF CARE Activity Details Follow Up Next available Reason: F/U VITAL SIGNS MEDICATIONS Unknown Medications RESULTS No Results PROCEDURES Procedure Date Ordered Result Body Site Psychotherapy, patient &/family, 45 minutes, established pat ient Apr 03, 2017 INSTRUCTIONS MEDICATIONS ADMINISTERED No Known Medications
--- OUTSIDE RECORDS SUMMARY | 2019-10-15 03:31 | XMS REPORT ---
Author Author Stefanie MANZANO [facility] Address [address] [place] [address] Care Team Providers Care Machine Pan Greaser Name Role Phone BLANK MANZANO Unavailable PROBLEMS ALLERGIES No Information ENCOUNTERS IMMUNIZATIONS No Known Immunizations SOCIAL HISTORY No smoking Hx information available REASON FOR VISIT PLAN OF CARE VITAL SIGNS MEDICATIONS Unknown Medications RESULTS No Results PROCEDURES INSTRUCTIONS MEDICATIONS ADMINISTERED No Known Medications
--- OUTSIDE RECORDS SUMMARY | 2019-10-15 03:31 | XMS REPORT ---
Author Author Stefanie MANZANO [facility] Address [address] [place] [address] Care Team Providers Care Attending Anesthesiologist Name Role Phone BLANK MANZANO Unavailable PROBLEMS Type Condition ICD9-CM Code [id number] Code Onset Dates Condition S tatus SNOMED Code Problem Anxiety disorder, unspecified type F41.9 Active [id number] ALLERGIES No Information ENCOUNTERS Encounter Location Date Diagnosis [place] [address] [place] [id number] [address] [place] [phone] Apr, [place] [address] [address] [place] [id number] [address] [place] [phone] Mar, Anxiety disorder, unspecifie d type F41.9 [place] [address] [place] [id number] [address] [place] [phone] Jan, Anxiety disorder, unspecifie d type F41.9 [place] [address] [place] [id number] [address] [place] [phone] Jan, Anxiety disorder, unspecifie d type F41.9 [place] [address] [facility] [id number] [address] [place] [phone] Jan, Anxiety disorder, unspecifie d type F41.9 [place] [address] [facility] [id number] [address] [place] [phone] May, Encounter for immunization Z 23 [facility] [address] [facility] [id number] [address] [place] [phone] Apr, Anxiety disorder, unspecifie d type F41.9 [place] [address] [facility] [id number] [address] [place] [phone] Apr, Anxiety disorder, unspecifie d type F41.9 [facility] [address] [facility] [id number] [address] [place] [address] Mar, Anxiety disorder, unspecifie d type F41.9 IMMUNIZATIONS No Known Immunizations SOCIAL HISTORY Never Assessed REASON FOR VISIT f/u PLAN OF CARE Activity Details Follow Up 1 Week Reason: F/U VITAL SIGNS MEDICATIONS Unknown Medications RESULTS No Results PROCEDURES Procedure Date Ordered Result Body Site Psychotherapy, patient &/family, 45 minutes, established pat ient February 08, 2018 INSTRUCTIONS MEDICATIONS ADMINISTERED No Known Medications
--- OUTSIDE RECORDS SUMMARY | 2019-10-15 03:31 | XMS REPORT ---
Author Author Stefanie BARROS Organization [facility] Address [address] [place] [address] Care Team Providers Care Mechanical Technical Service Specialist Name Role Phone SIRI BARROS Unavailable PROBLEMS Type Condition ICD9-CM Code [id number] Code Onset Dates Condition S tatus SNOMED Code Problem Anxiety disorder, unspecified type F41.9 Active [id number] ALLERGIES No Information ENCOUNTERS Encounter Location Date Diagnosis [place] [address] [address] [place] [id number] [address] [place] [phone] May, Encounter for immunization Z 23 [place] [address] [address] [facility] [id number] [address] [place] [phone] Apr, Anxiety disorder, unspecifie d type F41.9 [place] [address] [address] [facility] [id number] [address] [place] [phone] Apr, Anxiety disorder, unspecifie d type F41.9 [place] [address] [address] [facility] [id number] [address] [place] [phone] Mar, Anxiety disorder, unspecifie d type F41.9 IMMUNIZATIONS Vaccine Route Administration Date Status FLUARIX QUAD (3 AND UP) 2016 IM Intramuscular May 27, 2017 Ad ministered SOCIAL HISTORY Never Assessed REASON FOR VISIT Flu shot PLAN OF CARE VITAL SIGNS MEDICATIONS Unknown Medications RESULTS No Results PROCEDURES Procedure Date Ordered Result Body Site FLUARIX QUAD (3 AND UP) 2017 May 27, 2017 SINGLE IMMUNIZATION ADMIN May 27, 2017 INSTRUCTIONS MEDICATIONS ADMINISTERED No Known Medications
--- OUTSIDE RECORDS SUMMARY | 2019-10-15 03:31 | XMS REPORT ---
Author Author Stefanie MANZANO Organization [facility] Address [address] [place] [address] Care Team Providers Care Notched Blade Loader Name Role Phone BLANK MANZANO Unavailable PROBLEMS Type Condition ICD9-CM Code [id number] Code Onset Dates Condition S tatus SNOMED Code Problem Anxiety disorder, unspecified type F41.9 Active [id number] ALLERGIES No Information ENCOUNTERS Encounter Location Date Diagnosis [place] [address] [place] [id number] [address] [place] [phone] May, Encounter for immunization Z 23 [place] [address] [place] [id number] [address] [place] [phone] Apr, Anxiety disorder, unspecifie d type F41.9 [place] [address] [facility] [id number] [address] [place] [phone] Apr, Anxiety disorder, unspecifie d type F41.9 [place] [address] [address] [facility] [id number] [address] [place] [phone] Mar, Anxiety disorder, unspecifie d type F41.9 IMMUNIZATIONS No Known Immunizations SOCIAL HISTORY Never Assessed REASON FOR VISIT f/u PLAN OF CARE Activity Details Follow Up 2 Weeks Reason: F/U VITAL SIGNS MEDICATIONS Unknown Medications RESULTS No Results PROCEDURES Procedure Date Ordered Result Body Site Psychotherapy, patient &/family, 45 minutes, established pat ient Apr 21, 2017 INSTRUCTIONS MEDICATIONS ADMINISTERED No Known Medications
--- OUTSIDE RECORDS SUMMARY | 2019-10-15 03:31 | XMS REPORT ---
Author Author Stefanie MANZANO [facility] Address [address] [place] [address] Care Team Providers Care Manager Desktop Name Role Phone BLANK MANZANO Unavailable PROBLEMS Type Condition ICD9-CM Code VMG01-PI Code Onset Dates Condition S tatus SNOMED Code Problem Anxiety disorder, unspecified type F41.9 Active [id number] ALLERGIES No Information ENCOUNTERS Encounter Location Date Diagnosis [place] [address] [address] [place] [id number] [address] [place] [phone] Apr, [place] [address] [address] [place] [id number] [address] [place] [phone] Mar, Anxiety disorder, unspecifie d type F41.9 [place] [address] [place] [id number] [address] [place] [phone] Jan, Anxiety disorder, unspecifie d type F41.9 [place] [address] [address] [place] [id number] [address] [place] [phone] Jan, Anxiety disorder, unspecifie d type F41.9 [place] [address] [address] [facility] [id number] [address] [place] [phone] Jan, Anxiety disorder, unspecifie d type F41.9 [place] [address] [facility] [id number] [address] [place] [phone] May, Encounter for immunization Z 23 [facility] [address] [facility] [id number] [address] [place] [phone] Apr, Anxiety disorder, unspecifie d type F41.9 [place] [address] [facility] [id number] [address] [place] [phone] Apr, Anxiety disorder, unspecifie d type F41.9 [facility] [address] [facility] [id number] [address] [place] [address] 17 Mar, 2017 Anxiety disorder, unspecifie d type F41.9 IMMUNIZATIONS No Known Immunizations SOCIAL HISTORY Never Assessed REASON FOR VISIT f/u PLAN OF CARE Activity Details Follow Up Next available Reason: F/U VITAL SIGNS MEDICATIONS Unknown Medications RESULTS No Results PROCEDURES Procedure Date Ordered Result Body Site Psychotherapy, patient &/family, 45 minutes, established patient Mar 23, 2018 INSTRUCTIONS MEDICATIONS ADMINISTERED No Known Medications
--- OUTSIDE RECORDS SUMMARY | 2019-10-15 03:31 | XMS REPORT ---
Author Author Stefanie MANZANO [facility] Address [address] [place] [address] Care Team Providers Care Salvage Diver Name Role Phone BLANK MANZANO Unavailable PROBLEMS Type Condition ICD9-CM Code ROE68-UW Code Onset Dates Condition S tatus SNOMED Code Problem Anxiety disorder, unspecified type F41.9 Active [id number] ALLERGIES No Information ENCOUNTERS Encounter Location Date Diagnosis [place] [address] [address] [place] [id number] [address] [place] [phone] Apr, [place] [address] [place] [id number] [address] [place] [phone] Mar, Anxiety disorder, unspecifie d type F41.9 [place] [id number] [place] [id number] [address] [place] [phone] Jan, Anxiety disorder, unspecifie d type F41.9 [place] [address] [place] [id number] [address] [place] [phone] Jan, Anxiety disorder, unspecifie d type F41.9 [place] [address] [facility] [id number] [address] [place] [phone] Jan, Anxiety disorder, unspecifie d type F41.9 [place] [address] [facility] [id number] [address] [place] [phone] May, Encounter for immunization Z 23 [facility] [address] [facility] [id number] [address] [place] [phone] Apr, Anxiety disorder, unspecifie d type F41.9 [place] [id number] [facility] [id number] [address] [place] [phone] Apr, Anxiety disorder, unspecifie d type F41.9 [facility] [address] [facility] [id number] [address] [place] [address] Mar, Anxiety disorder, unspecifie d type F41.9 IMMUNIZATIONS No Known Immunizations SOCIAL HISTORY Never Assessed REASON FOR VISIT f/u PLAN OF CARE Activity Details Follow Up Next available Reason: F/U VITAL SIGNS MEDICATIONS Unknown Medications RESULTS No Results PROCEDURES Procedure Date Ordered Result Body Site Psychotherapy, patient &/family, 45 minutes, established pat ient February 17, 2018 INSTRUCTIONS MEDICATIONS ADMINISTERED No Known Medications
--- OUTSIDE RECORDS SUMMARY | 2019-10-15 03:31 | XMS REPORT ---
Author Author Stefanie MANZANO [facility] Address [address] [place] [address] Care Team Providers Care Associate Name Role Phone BLANK MANZANO Unavailable PROBLEMS Type Condition ICD9-CM Code DND20-KK Code Onset Dates Condition S tatus SNOMED Code Problem Anxiety disorder, unspecified type F41.9 Active [id number] ALLERGIES No Information ENCOUNTERS Encounter Location Date Diagnosis [place] [address] [address] [place] [id number] [address] [place] [phone] Apr, [place] [address] [address] [place] [id number] [address] [place] [phone] Mar, Anxiety disorder, unspecifie d type F41.9 [place] [address] [place] [id number] [address] [place] [phone] Jan, Anxiety disorder, unspecifie d type F41.9 [place] [address] [place] [id number] [address] [place] [phone] Jan, Anxiety disorder, unspecifie d type F41.9 [place] [address] [facility] [id number] [address] [place] [phone] Jan, Anxiety disorder, unspecifie d type F41.9 [place] [address] [facility] [id number] [address] [place] [phone] May, Encounter for immunization Z 23 [facility] [address] [facility] [id number] [address] [place] [phone] Apr, Anxiety disorder, unspecifie d type F41.9 [place] [address] [facility] [id number] [address] [place] [phone] Apr, Anxiety disorder, unspecifie d type F41.9 [facility] [address] [facility] [id number] [address] [place] [address] Mar, Anxiety disorder, unspecifie d type F41.9 IMMUNIZATIONS No Known Immunizations SOCIAL HISTORY Never Assessed REASON FOR VISIT f/u PLAN OF CARE Activity Details Follow Up Next available Reason: F/U VITAL SIGNS MEDICATIONS Unknown Medications RESULTS No Results PROCEDURES Procedure Date Ordered Result Body Site Psychotherapy, patient &/family, 45 minutes, established pat ient January 25, 2018 INSTRUCTIONS MEDICATIONS ADMINISTERED No Known Medications
--- OUTSIDE RECORDS SUMMARY | 2019-10-15 03:32 | XMS REPORT | CCD ---
Author Author Stefanie Cruz D.O. Organization MILENA CRUZ DO [facility] Address [address] [place] [address] Phone Care Team Providers Care Patient Care Provider Name Role Phone Milena Cruz D.O., PP Unavailable CCM Unavailable Summary Purpose Interface Exchange Insurance Providers Payer name Policy type / Coverage type Covered libertarian ID Effective Begin Date Effective End Date Blue Cross Blue Shield Blue Cross/Blue Shield [id number] 2018 Unknown Family History Family History data not found Social History Social History Element Codes Description Effective Dates Marital status Unknown 08/28/[address]: [id number] Never smoker 08/28/2011 Allergies, Adverse Reactions, Alerts [...] Start Date Stop Date Status Fill Instructions estradiol 1 mg tablet RxNorm: 429214 1 Tablet(s) Oral QD 09/07/2019 No Stop Date Active fluticasone propionate 50 mcg/actuation nasal spray,suspensi on RxNorm: 5751017 2 [place] Nasal every night at bedtime 09/07/2019 12/05/2019 Active omeprazole 40 mg capsule,delayed release RxNorm: 870670 TAKE ONE CAPSULE BY MOUTH DAILY 04/05/2019 06/03/2019 Inactive omeprazole 40 mg capsule,delayed release RxNorm: 250944 TAKE ONE CAPSULE BY MOUTH DAILY 01/03/2019 02/01/2019 Inactive Celebrex 200 mg capsule RxNorm: 590311 TAKE ONE CAPSULE BY MOUTH TWICE A DAY NEEDED 10/26/2018 11/24/2018 Inactive fluticasone 50 mcg/actuation nasal spray,suspension RxNorm: 6396233 2 [place] NASAL QHS 10/18/2018 01/15/2019 Inactive omeprazole 40 mg capsule,delayed release RxNorm: 269091 TAKE ONE CAPSULE BY MOUTH DAILY 10/01/2018 10/30/2018 Inactive Celebrex 200 mg capsule RxNorm: 533361 TAKE ONE CAPSULE BY MOUTH TWICE A DAY NEEDED 09/27/2018 10/25/2018 Inactive Medrol (Driss) 4 mg tablets in a dose pack RxNorm: 078774 Tablet(s) PO as directed 09/02/2018 09/06/2019 Inactive cyclobenzaprine 10 mg tablet RxNorm: 168893 1/2-1 Table t(s) PO TID as needed for muscle spasm 09/01/2018 No Stop Date Active Celebrex 200 mg capsule RxNorm: 616415 1 Capsule(s) PO BID for pain 09/01/2018 09/26/2018 Inactive Zithromax Z-Driss 250 mg tablet RxNorm: 483412 Tablet(s) take as directed PO 08/16/2018 08/31/2018 Inactive Medrol (Driss) 4 mg tablets in a dose pack RxNorm: 105473 Tablet(s) take as directed PO 08/16/2018 08/31/2018 Inactive Bactrim DS 800 mg-160 mg tablet RxNorm: 301595 1 Tablet(s) PO BID 1 08/28/2017 06/27/2018 Inactive Bactrim DS 800 mg-160 mg tablet RxNorm: 538911 1 Tablet(s) PO BID 1 08/28/2017 07/04/2018 Inactive Macrobid 100 mg capsule RxNorm: 638594 1 Capsule(s) PO BID 06/23/20 18 06/22/2018 Inactive Macrobid 100 mg capsule RxNorm: 888590 1 Capsule(s) PO BID 06/23/20 18 06/27/2018 Inactive fluticasone 50 mcg/actuation nasal spray,suspension RxNorm: 4276640 SPRAY TWO SPRAYS IN EACH NOSTRIL ONCE DAILY EVERY NIGHT AT BEDTIME 04/13/201804/2018 Inactive omeprazole 40 mg capsule,delayed release RxNorm: 701000 1 Capsu le(s) PO QD 04/06/2018 09/30/2018 Inactive fluticasone 50 mcg/actuation nasal spray,suspension RxNorm: 3835779 2 [place] NASAL QHS 09/28/2017 09/27/2017 Inactive omeprazole 40 mg capsule,delayed release RxNorm: 133350 1 Capsu le(s) PO QD 03/19/2017 04/06/2018 Inactive Flonase Allergy Relief 50 mcg/actuation nasal spray,suspensi on RxNorm: 2395078 2 [place] NASAL QHS to each nostril 02/23/2017 09/28/2017 Inactive Flonase Allergy Relief 50 mcg/actuation nasal spray,suspensi on RxNorm: 5302463 2 [place] NASAL QHS to each nostril 06/11/2016 02/23/2017 Inactive phentermine 37.5 mg tablet RxNorm: 732132 1 Tablet(s) PO QD 016 05/16/2016 Inactive Flonase 50 mcg/actuation nasal spray,suspension RxNorm: 1797 933 2 [place] NASAL QHS 12/24/2015 06/11/2016 Inactive [SAVINGS FOR UNI NSURED PATIENTS -- BIN:[id number], PCN: ASPROD1, Group: [id number], ID# [id number], Process claim through [employer], for questions: . THIS IS NOT INSURANCE.] Flonase 50 mcg/actuation nasal spray,suspension RxNorm: 8963 23 2 [place] NASAL QHS 04/25/2015 12/24/2015 Inactive [SAVINGS FOR UNI NSURED PATIENTS -- BIN:[id number], PCN: ASPROD1, Group: [id number], ID# [id number], Process claim through [employer], for questions: . THIS IS NOT INSURANCE.] ibuprofen 800 mg tablet RxNorm: 415068 1 Tablet(s) PO BID 03/26/2015 04/24/2015 Inactive ibuprofen 800 mg tablet RxNorm: 876773 1 Tablet(s) PO BID 02/19/2015 03/26/2015 Inactive ibuprofen 800 mg tablet RxNorm: 470228 1 Tablet(s) PO BID 01/18/2015 02/19/2015 Inactive Flonase 50 mcg/actuation nasal spray,suspension RxNorm: 8963 23 2 [place] NASAL QHS 08/25/2014 04/24/2015 Inactive [SAVINGS FOR UNI NSURED PATIENTS -- BIN:[id number], PCN: ASPROD1, Group: [id number], ID# [id number], Process claim through [employer], for questions: . THIS IS NOT INSURANCE.] Flonase 50 mcg/actuation nasal spray,suspension RxNorm: 8963 23 2 [place] NASAL QHS 05/29/2014 08/24/2014 Inactive [SAVINGS FOR UNI NSURED PATIENTS -- BIN:[id number], PCN: ASPROD1, Group: [id number], ID# [id number], Process claim through [employer], for questions: . THIS IS NOT INSURANCE.] Macrobid 100 mg capsule RxNorm: 263383 1 Capsule(s) PO BID 01/04/20 14 01/09/2014 Inactive [SAVINGS FOR UNINSURED PATIE NTS -- BIN:350286, PCN: ASPROD1, Group: [id number], ID# [id number], Process claim through [employer], for questions: . THIS IS NOT INSURANCE.] Macrobid 100 mg capsule RxNorm: 400554 1 Capsule(s) PO BID 01/04/20 14 01/02/2014 Inactive Flonase 50 mcg/actuation nasal spray,suspension RxNorm: 8963 23 2 [place] NASAL QHS 10/13/2013 05/29/2014 Inactive Zantac 300 mg tablet RxNorm: 138155 Tablet(s) PO TAKE O NE TABLET BY MOUTH AT BEDTIME 03/28/2013 03/18/2017 Inactive Zantac 300 mg tablet RxNorm: 616952 1 Tablet(s) PO QHS 10/26/2012 Inactive flax seed oil RxNorm: 1 PO QD No Start Date Active Fish Oil 1,000 mg capsule RxNorm: 1 Capsule(s) PO QD No Start Date Active Zyrtec 10 mg tablet RxNorm: 2049577 1 Tablet(s) PO QD No Start Date Active Medrol (Driss) 4 mg tablets in a dose pack RxNorm: 610468 Tablet(s) PO as directed No Start Date 09/01/2018 Inactive omeprazole 40 mg capsule,delayed release RxNorm: 929586 1 Capsu le(s) PO QD No Start Date 03/18/2017 Inactive Voltaren 1 % Topical Gel RxNorm: 548030 1 Gram(s) TOP QID No Start Date 03/18/2017 Inactive Flonase 50 mcg/actuation nasal spray,suspension RxNorm: 8963 23 2 [place] NASAL QHS No Start Date 10/13/2013 Inactive Nexium 40 mg capsule,delayed release RxNorm: 723730 1 Capsule(s ) PO QD No Start Date 03/18/2017 Inactive Medication Administered No Medication Administered data Immunizations Vaccine Codes Date Status Tetanus, Diptheria, Pertussis CVX: 115 01/19/2014 Results No Results data Procedures Procedure Codes Date THER/PROPH/DIAG INJ SC/IM CPT-4: 63062 09/01/2018 KETOROLAC TROMETHAMINE INJ CPT-4: J1885 09/01/2018 URINALYSIS NONAUTO W/O SCOPE CPT-4: 75726 06/21/2018 URINE CULTURE/ COLONY COUNT CPT-4: 28138 06/21/2018 URINE CULTURE/ COLONY COUNT CPT-4: 36857 02/07/2014 URINALYSIS NONAUTO W/O SCOPE CPT-4: 47440 02/07/2014 TDAP VACCINE 7 YRS/> IM CPT-4: 37491 01/19/2014 IMMUNIZATION ADMIN CPT-4: 83153 01/19/2014 URINE CULTURE/ COLONY COUNT CPT-4: 89531 01/03/2014 URINALYSIS NONAUTO W/O SCOPE CPT-4: 04751 01/03/2014 URINE CULTURE/ COLONY COUNT CPT-4: 52564 11/25/2013 INJ TRIGGER POINT 1/2 MUSCL CPT-4: 23445 10/09/2010 TRIAMCINOLONE ACET INJ NOS CPT-4: J3301 10/09/2010 METHYLPREDNISOLONE 40 MG INJ CPT-4: J1030 10/09/2010 Vital Signs Date Vital 09/07/2019 Blood Pressure 1: 136/94 Code: 8480-6 BMI: 32.2 Code: 63076-9 Heart Rate 1: 84 bpm Height: 5'2" Respiratory Rate: 20 bpm SpO2: 98% Tempera ture: 36.8 (C) / 98.2 (F) Weight: 173 lbs 09/01/2018 BMI: 32.0 Code: 08806-7 Heart Rate 1: 76 bpm Height: 5 '2" Respiratory Rate: 20 bpm Temperature: 36.9 (C) / 98.4 (F) Weight: 172 lbs 08/16/2018 Blood Pressure 1: 130/80 Code: 8480-6 Heart Rate 1: 91 bpm Respiratory Rate: 18 bpm SpO2: 97% Temperature: 36.7 (C) / 98.1 (F) We ight: 169 lbs 03/30/2018 Blood Pressure 1: 136/82 Code: 8480-6 BMI: 30.3 Code: 30752-9 Heart Rate 1: 72 bpm Height: 5'2" Respiratory Rate: 20 bpm SpO2: 98% Tempera ture: 36.8 (C) / 98.2 (F) Weight: 163 lbs 03/19/2017 Blood Pressure 1: 132/82 Code: 8480-6 BMI: 30.2 Code: 10298-1 Heart Rate 1: 72 bpm Height: 5'2" Respiratory Rate: 20 bpm Temperature: 36 .6 (C) / 97.9 (F) Weight: 165 lbs 04/17/2016 Blood Pressure 1: 124/82 Code: 8480-6 BMI: 29.6 Code: 56968-1 Heart Rate 1: 82 bpm Height: 5'2" Respiratory Rate: 22 bpm SpO2: 98% Tempera ture: 37.0 (C) / 98.6 (F) Weight: 162 lbs 01/18/2015 Blood Pressure 1: 118/78 Code: 8480-6 BMI: 27.8 Code: 59616-8 Heart Rate 1: 78 bpm Height: 5'2" Respiratory Rate: 20 bpm Temperature: 36 .3 (C) / 97.3 (F) Weight: 152 lbs 04/18/2013 Blood Pressure 1: 110/62 Code: 8480-6 BMI: 26.2 Code: 45319-2 Heart Rate 1: 66 bpm Height: 5'2" Respiratory Rate: 22 bpm Temperature: 36 .3 (C) / 97.4 (F) Weight: 143 lbs 10/26/2012 Blood Pressure 1: 124/78 Code: 8480-6 BMI: 26.2 Code: 49891-0 Heart Rate 1: 76 bpm Height: 5'3" Respiratory Rate: 20 bpm Temperature: 36 .6 (C) / 97.9 (F) Weight: 148 lbs 02/02/2012 Blood Pressure 1: 122/80 Code: 8480-6 BMI: 26.2 Code: 99620-1 Heart Rate 1: 72 bpm Height: 5'3" Respiratory Rate: 20 bpm Temperature: 36 .7 (C) / 98.0 (F) Weight: 148 lbs 08/28/2011 Blood Pressure 1: 114/60 Code: 8480-6 BMI: 24.8 Code: 80210-0 Heart Rate 1: 72 bpm Height: 5'3" Respiratory Rate: 20 bpm Temperature: 36 .5 (C) / 97.7 (F) Weight: 140 lbs 01/07/2011 Blood Pressure 1: 120/74 Code: 8480-6 BMI: 27.1 Code: 63807-1 Height: 5'2" Weight: 148 lbs 10/09/2010 Blood [...] arms Encounters Encounter Performer Location Codes Date ([id number]) PREV VISIT EST AGE 40-64 Diagnosis: 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, 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] Diagnosis: Encounter for general adult medical examination without abnormal findings[ICD10: Z00.00] Diagnosis: Elevated blood pressure reading[ICD10: R03.0] Diagnosis: Screening for malignant neoplasm of breast[ICD10: Z12.39] Diagnosis: Tinnitus[ICD10: H93.19] Angeli Washburn [employer] CPT-4: 67778 09/07/2019 ([id number]) OFFICE/OUTPATIENT VISIT EST Diagnosis: Low back pain[ICD10: M54.5] Diagnosis: Radiculopathy, lumbar region[ICD10: M54.16] Milena Washburn [employer] CPT-4: 83528 09/01/2018 ([id number]) OFFICE/OUTPATIENT VISIT EST Diagnosis: Acute upper respiratory infection, unspecified[ICD10: J06.9] Angeli CRUZ [employer] CPT-4: 15977 08/16/2018 ([id number]) NURSE/OUTPATIENT VISIT EST Diagnosis: Urinary tract infection, site not specified[ICD10: N39.0] Diagnosis: Hematuria, unspecified[ICD10: R31.9] Milena Washburn [employer] CPT-4: 02575 06/21/2018 ([id number]) PREV VISIT EST AGE 40-64 Diagnosis: Encounter for general adult medical examination without abnormal findings[ICD10: Z00.00] Diagnosis: Gastro-esophageal reflux disease without esophagitis[ICD10: K21.9] Milena Washburn SAUNDRA [employer] CPT-4: 74158 03/30/2018 ([id number]) OFFICE/OUTPATIENT VISIT EST Diagnosis: Gastro-esophageal reflux disease without esophagitis[ICD10: K21.9] Diagnosis: Cervicalgia[ICD10: M54.2] Diagnosis: 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, 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] Milena CRUZ DO [facility] CPT - 4: 02154 03/19/2017 ([id number]) PREV VISIT EST AGE 40-64 Diagnosis: Encounter for general adult medical examination without abnormal findings[ICD10: Z00.00] Diagnosis: Abnormal weight gain[ICD10: R63.5] Diagnosis: Body mass index (BMI) 29.0-29.9, adult[ICD10: Z68.29] Delilah CRUZ DO [facility] CPT-4: 13475 04/17/2016 ([id number]) PREV VISIT EST AGE 40-64 Diagnosis: ROUTINE MEDICAL EXAM[ICD9: V70.0] Diagnosis: Shoulder pain, bilateral[ICD9: 719.41] Liz VanCesarre MILENA CRUZ DO [facility] CPT-4: 37350 01/18/2015 ([id number]) OFFICE/OUTPATIENT VISIT EST Diagnosis: URINARY TRACT INFECTION[ICD9: 599.0] Milena CRUZ DO [facility] CPT-4: 70485 02/07/2014 ([id number]) OFFICE/OUTPATIENT VISIT EST Diagnosis: VACCINE FOR TDAP[ICD10: Z23] Milena CRUZ DO [facility] CPT-4: 56422 01/19/2014 ([id number]) OFFICE/OUTPATIENT VISIT EST Diagnosis: URINARY TRACT INFECTION[ICD9: 599.0] Milena CRUZ DO [facility] CPT-4: 57463 01/03/2014 ([id number]) OFFICE/OUTPATIENT VISIT EST Diagnosis: Flank pain[ICD9: 789.00] Milena Abellizetgianna PAYANMILENA Maddison SHELBY [facility] CPT-4: 86054 11/25/2013 ([id number]) OFFICE/OUTPATIENT VISIT EST Diagnosis: DYSPHAGIA, NOS[ICD9: 787.20] Diagnosis: Foot pain[ICD9: 729.5] Milena Torres DO [employer] CPT-4: 84343 04/18/2013 ([id number]) PREV VISIT EST AGE 40-64 Diagnosis: ROUTINE MEDICAL EXAM[ICD9: V70.0] Milena Moses S. ABELNDGIANNA DO [employer] CPT-4: 65836 10/26/2012 ([id number]) PREV VISIT EST AGE 40-64 Diagnosis: ROUTINE MEDICAL EXAM[ICD9: V70.0] Milena Moses SStephanie BOBONDER [employer] CPT-4: 88675 02/02/2012 OFFICE/OUTPATIENT VISIT EST Diagnosis: SINUSITIS, ACUTE[ICD9: 461.9] Diagnosis: Benign positional vertigo[ICD9: 386.11] Milena CRUZ [employer] CPT-4: 16969 08/28/2011 ([id number]) OFFICE/OUTPATIENT VISIT EST Milena MC SStephanie BOBONDGIANNA [employer] CPT-4: 15496 10/09/2010 Plan of Care Planned Activity Notes Codes Status Date Visit Diagnosis Plan: Screening for malignant neoplasm of breast Discussion: mammogram to be ordered. ICD-9 : V76.10 ICD-10 : Z12.39 09/07/2019 Visit Diagnosis Plan: Encounter for [facility] adult medical examination without abnormal findings Discussion: will update fasting labs thr [facility] lab. had colonoscopy in 2012 and not due until 2022. sees carlos for pap. due for mammogram and will order. ICD-9 : V70.9 ICD-10 : Z00.00 09/07/2019 Visit Diagnosis Plan: Elevated blood pressure reading Discussion: rtc 2 weeks for bp check. ICD-9 : 796.2 ICD-10 : R03.0 09/07/2019 Visit Diagnosis Plan: Tinnitus Discussion: could be r/ t elevated bp. started shortly after starting estradiol so patient to call dr. gonzalez's office and notify them. will rtc 2 weeks for bp check and see if symptoms improved. 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 ICD-9 : 214.1 ICD-10 : D17.0 09/07/2019 Appointment: BarreraGalo guoyson Chelsy [address] [place], [place] [phone] Annual Well Visit 09/07/2019 Care Plan: MAMMOGRAM SCREENING LOINC : 2 6347-5 Pending 09/07/2019 Appointment: BarreraAngeli guo [address] [place] [address] US RESCHEDULED 08/31/2019 Visit Diagnosis Plan: Low back pain Discussion: Stretc hes, Ice, topical muscle rub OMT done Toradol now Celebrex and flexeril Recheck in 1 week if persists or worsening ICD-9 : 724.2 ICD-10 : M54.5 09/01/2018 Appointment: Milena Cruz WPtel: [facility] [address] ACUTE ILLNESS 09/01/2018 Patient Education: cyclobenzaprine- [employer] Coupon [id number] [email or web address].Proxio/samplemd/resources/getResource/[email or web address] Completed 09/01/2018 Visit Diagnosis Plan: Acute upper respiratory infectio n, unspecified Discussion: zpack and medrol pack prescribed for symptom management. ok to continue with claritin daily. instructed to use humidifier at home in room to assist with drainage, especially with symptoms worse upon awakening. ICD-9 : 465.9 ICD-10 : J06.9 08/16/2018 Appointment: Angeli Rust [address] [place], [place] [id number] ACUTE ILLNESS 08/16/2018 Patient Education: Medrol (Driss)- [employer] Coupon [phone] [email or web address].Proxio/samplemd/resources/getResource/[email or web address] Completed 08/16/2018 Appointment: Milena Cruz WPtel: [phone] [phone] [facility] 06/21/2018 Visit Diagnosis Plan: Gastro-esophageal reflux disease without esophagitis Discussion: Stable on omeprazole--patient has had esophageal stricture in past as well as overproduction in acid on pH manometry so has to stay with PPI and discussed repeat EGD if having worsening symptoms or dysphagia ICD-9 : 530.81 ICD-10 : K21.9 03/30/2018 Visit Diagnosis Plan: Encounter for [facility] adult medical examination without abnormal findings Discussion: Update fasting lab Discussed diet/exercise at length including weight bearing exercise At least 1000-1500mg calcium a day between diet and supplement in addition to Vitamin D Seeing MILL ORDER SCHEDULER yearly ICD-9 : V70.9 ICD-10 : Z00.00 03/30/2018 Appointment: Milena Cruz WPtel: [address] [place], [place] [phone] Annual Well Visit 03/30/2018 Patient Education: Patient [...] disease without esophagitis Discussion: Continue omeprazole Discussed usp use of PPIs and risk but patient has tried H2 Blockers and has breakthrough symptoms Start chewable MV daily ICD-9 : 530.81 ICD-10 : K21.9 03/19/2017 Appointment: Milena Cruz WPtel: [address] [place], [place] [id number] MEDICATION REVIEW 03/19/2017 Patient Education: Patient Medication [...] if any occur 04/17/2016 Appointment: Delilah Jiang [phone] [id number] Annual Well Visit 04/17/2016 Patient Education: Patient Medication Summary Completed 04/17/2016 Appointment: Liz Bolaños WPtel: [address] [place], [place] [phone] ACUTE ILLNESS 04/12/2015 Visit Plan: Will return for fasting labs - CBC, CMP, TSH, Free T4, Lipid Panel Start Shoulder Stretches and Bilateral ROM exercises Ibuprofen 800 mg PO bid Recommended follow-up with Nicole Mayer 01/18/2015 Appointment: Liz Bolaños WPtel: [address] [place], [place] [id number] 01/17 appt confirmed cn Annual Well Visit 2014 Patient Education: Patient Medication Summary Completed 01/18/2015 Appointment: Milena Cruz WPtel: [address] [place], [place] [phone] UA 02/07/2014 Patient Education: Patient Medication Summary Completed 02/07/2014 Appointment: Milena Cruz WPtel: [address] [place], [place] [phone] INJECTION 01/19/2014 Patient Education: Patient Medication Summary Completed 01/19/2014 Appointment: Liz Bolaños WPtel: [address] [place], [place] [phone] ACUTE ILLNESS 01/04/2014 Appointment: Milena Cruz WPtel: [address] [place], [place] [phone] UA 01/03/2014 Patient Education: Patient Medication Summary Completed 01/03/2014 Appointment: Milena Cruz WPtel: [address] [place], [place] [phone] UA 11/25/2013 Patient Education: Patient Medication Summary Completed 11/25/2013 Visit Plan: Proceed with EGD Continue Za ntac but increase to BID Seeing podiatry for feet but will try Voltaren gel 04/18/2013 Appointment: Milena Cruz WPtel: [address] [place] [address] ACUTE ILLNESS 04/18/2013 Patient Education: Patient Medication Summary Completed 04/18/2013 Appointment: Milena Cruztel: [address] [place] [address] FOLLOW UP 01/25/2013 Visit Plan: Start daily Calcium with Vit D 500mg and fish oil 1gram daily Zyrtec routinely and add flonase Add Zantac 300mg q HS If dysphagia continues then will need EGD Check fasting lab 10/26/2012 Appointment: Milena Cruz WPtel: [address] [place] [address] Annual Well Visit 10/26/2012 Patient Education: Patient Medication Summary Completed 10/26/2012 Visit Plan: Check fasting lab 02/02/2012 Appointment: Milena Cruz WPtel: [address] [place] [address] PAP 02/02/2012 Patient Education: Patient Medication Summary Completed 02/02/2012 Visit Plan: Vestibular exercises Meclizi ne 25mg po TID Nasonex BID 08/28/2011 Appointment: Milena Cruztel: [address] [place] [address] ACUTE ILLNESS 08/28/2011 Patient Education: Patient Medication Summary Completed 08/28/2011 Appointment: Milena Cruztel: [address] [place] [address] BP CHECK 01/07/2011 Patient Education: Patient Medication Summary Completed 01/07/2011 Visit Plan: OMT done to thoracics Trigge r point injection as above Arthrotec 75mg po BID Pt will call in 5 days on how neck doing Pt will return at later date for mole removal to left axilla 10/09/2010 Appointment: Milena Cruztel: [address] [place] [address] ACUTE ILLNESS 10/09/2010 Patient Education: Patient Medication Summary Completed 10/09/2010 Appointment: [facility]Stephanie [facility]el[facility] [phone] [id number] [facility] 11/07/2009 Patient Education: Patient Medication Summary Completed 11/07/2009 Referral: Milena Cruz [facility]el[facility] [phone] [facility] 04/18 patient will schedule appt Initiated Instructions [...]
--- OUTSIDE RECORDS SUMMARY | 2019-10-15 03:32 | XMS REPORT | CCD ---
Author Author Stefanie Cruz D.O. Organization [facility] Address [address] [place] [address] Phone Care Team Providers Care Materials Planning Manager Name Role Phone Milena Cruz D.O., PP Unavailable CCM Unavailable Summary Purpose Interface Exchange Insurance Providers Payer name Policy type / Coverage type Covered libertarian ID Effective Begin Date Effective End Date Blue Cross Blue Shield Blue Cross/Blue Shield [id number] 2018 Unknown Family History Family History data not found Social History Social History Element Codes Description Effective Dates Marital status Unknown 08/28/[address]: [id number] Never smoker 08/28/2011 Allergies, Adverse Reactions, Alerts [...] Fill Instructions estradiol 1 mg tablet RxNorm: 218641 1 Tablet(s) Oral QD 09/07/2019 No Stop Date Active fluticasone propionate 50 mcg/actuation nasal spray,suspensi on RxNorm: 3775922 2 [place] Nasal every night at bedtime 09/07/2019 12/05/2019 Active omeprazole 40 mg capsule,delayed release RxNorm: 180849 TAKE ONE CAPSULE BY MOUTH DAILY 04/05/2019 06/03/2019 Inactive omeprazole 40 mg capsule,delayed release RxNorm: 539382 TAKE ONE CAPSULE BY MOUTH DAILY 01/03/2019 02/01/2019 Inactive Celebrex 200 mg capsule RxNorm: 254842 TAKE ONE CAPSULE BY MOUTH TWICE A DAY NEEDED 10/26/2018 11/24/2018 Inactive fluticasone 50 mcg/actuation nasal spray,suspension RxNorm: 0095099 2 [place] NASAL QHS 10/18/2018 01/15/2019 Inactive omeprazole 40 mg capsule,delayed release RxNorm: 661054 TAKE ONE CAPSULE BY MOUTH DAILY 10/01/2018 10/30/2018 Inactive Celebrex 200 mg capsule RxNorm: 062956 TAKE ONE CAPSULE BY MOUTH TWICE A DAY NEEDED 09/27/2018 10/25/2018 Inactive Medrol (Driss) 4 mg tablets in a dose pack RxNorm: 105908 Tablet(s) PO as directed 09/02/2018 09/06/2019 Inactive cyclobenzaprine 10 mg tablet RxNorm: 377619 1/2-1 Table t(s) PO TID as needed for muscle spasm 09/01/2018 No Stop Date Active Celebrex 200 mg capsule RxNorm: 385165 1 Capsule(s) PO BID for pain 09/01/2018 09/26/2018 Inactive Zithromax Z-Driss 250 mg tablet RxNorm: 513300 Tablet(s) take as directed PO 08/16/2018 08/31/2018 Inactive Medrol (Driss) 4 mg tablets in a dose pack RxNorm: 519723 Tablet(s) take as directed PO 08/16/2018 08/31/2018 Inactive Bactrim DS 800 mg-160 mg tablet RxNorm: 318901 1 Tablet(s) PO BID 1 08/28/2017 06/27/2018 Inactive Bactrim DS 800 mg-160 mg tablet RxNorm: 774627 1 Tablet(s) PO BID 1 08/28/2017 07/04/2018 Inactive Macrobid 100 mg capsule RxNorm: 485935 1 Capsule(s) PO BID 06/23/20 18 06/22/2018 Inactive Macrobid 100 mg capsule RxNorm: 776357 1 Capsule(s) PO BID 06/23/20 18 06/27/2018 Inactive fluticasone 50 mcg/actuation nasal spray,suspension RxNorm: 6185880 SPRAY TWO SPRAYS IN EACH NOSTRIL ONCE DAILY EVERY NIGHT AT BEDTIME 04/13/201804/2018 Inactive omeprazole 40 mg capsule,delayed release RxNorm: 982391 1 Capsu le(s) PO QD 04/06/2018 09/30/2018 Inactive fluticasone 50 mcg/actuation nasal spray,suspension RxNorm: 6783918 2 [place] NASAL QHS 09/28/2017 09/27/2017 Inactive omeprazole 40 mg capsule,delayed release RxNorm: 258813 1 Capsu le(s) PO QD 03/19/2017 04/06/2018 Inactive Flonase Allergy Relief 50 mcg/actuation nasal spray,suspensi on RxNorm: 6939066 2 [place] NASAL QHS to each nostril 02/23/2017 09/28/2017 Inactive Flonase Allergy Relief 50 mcg/actuation nasal spray,suspensi on RxNorm: 3991259 2 [place] NASAL QHS to each nostril 06/11/2016 02/23/2017 Inactive phentermine 37.5 mg tablet RxNorm: 543435 1 Tablet(s) PO QD 016 05/16/2016 Inactive Flonase 50 mcg/actuation nasal spray,suspension RxNorm: 1797 933 2 [place] NASAL QHS 12/24/2015 06/11/2016 Inactive [SAVINGS FOR UNI NSURED PATIENTS -- BIN:[id number], PCN: ASPROD1, Group: [id number], ID# [id number], Process claim through Rekoo, for questions: . THIS IS NOT INSURANCE.] Flonase 50 mcg/actuation nasal spray,suspension RxNorm: 8963 23 2 [place] NASAL QHS 04/25/2015 12/24/2015 Inactive [SAVINGS FOR UNI NSURED PATIENTS -- BIN:[id number], PCN: ASPROD1, Group: [id number], ID# [id number], Process claim through MedImpact, for questions: . THIS IS NOT INSURANCE.] ibuprofen 800 mg tablet RxNorm: 301920 1 Tablet(s) PO BID 03/26/2015 04/24/2015 Inactive ibuprofen 800 mg tablet RxNorm: 222010 1 Tablet(s) PO BID 02/19/2015 03/26/2015 Inactive ibuprofen 800 mg tablet RxNorm: 751179 1 Tablet(s) PO BID 01/18/2015 02/19/2015 Inactive Flonase 50 mcg/actuation nasal spray,suspension RxNorm: 8963 23 2 [place] NASAL QHS 08/25/2014 04/24/2015 Inactive [SAVINGS FOR UNI NSURED PATIENTS -- BIN:321945, PCN: ASPROD1, Group: [id number], ID# [id number], Process claim through MedImpact, for questions: . THIS IS NOT INSURANCE.] Flonase 50 mcg/actuation nasal spray,suspension RxNorm: 8963 23 2 [place] NASAL QHS 05/29/2014 08/24/2014 Inactive [SAVINGS FOR UNI NSURED PATIENTS -- BIN:417406, PCN: ASPROD1, Group: [id number], ID# [id number], Process claim through MedImpact, for questions: . THIS IS NOT INSURANCE.] Macrobid 100 mg capsule RxNorm: 209992 1 Capsule(s) PO BID 01/04/20 14 01/09/2014 Inactive [SAVINGS FOR UNINSURED PATIE NTS -- BIN:[id number], PCN: ASPROD1, Group: [id number], ID# [id number], Process claim through MedImpact, for questions: . THIS IS NOT INSURANCE.] Macrobid 100 mg capsule RxNorm: 936009 1 Capsule(s) PO BID 01/04/20 14 01/02/2014 Inactive Flonase 50 mcg/actuation nasal spray,suspension RxNorm: 8963 23 2 [place] NASAL QHS 10/13/2013 05/29/2014 Inactive Zantac 300 mg tablet RxNorm: 613615 Tablet(s) PO TAKE O NE TABLET BY MOUTH AT BEDTIME 03/28/2013 03/18/2017 Inactive Zantac 300 mg tablet RxNorm: 239559 1 Tablet(s) PO QHS 10/26/2012 Inactive flax seed oil RxNorm: 1 PO QD No Start Date Active Fish Oil 1,000 mg capsule RxNorm: 1 Capsule(s) PO QD No Start Date Active Zyrtec 10 mg tablet RxNorm: 9130484 1 Tablet(s) PO QD No Start Date Active Medrol (Driss) 4 mg tablets in a dose pack RxNorm: 336881 Tablet(s) PO as directed No Start Date 09/01/2018 Inactive omeprazole 40 mg capsule,delayed release RxNorm: 927083 1 Capsu le(s) PO QD No Start Date 03/18/2017 Inactive Voltaren 1 % Topical Gel RxNorm: 690413 1 Gram(s) TOP QID No Start Date 03/18/2017 Inactive Flonase 50 mcg/actuation nasal spray,suspension RxNorm: 8963 23 2 [place] NASAL QHS No Start Date 10/13/2013 Inactive Nexium 40 mg capsule,delayed release RxNorm: 669610 1 Capsule(s ) PO QD No Start Date 03/18/2017 Inactive Medication Administered No Medication Administered data Immunizations Vaccine Codes Date Status Tetanus, Diptheria, Pertussis CVX: 115 01/19/2014 Results No Results data Procedures Procedure Codes Date THER/PROPH/DIAG INJ SC/IM CPT-4: 80479 09/01/2018 KETOROLAC TROMETHAMINE INJ CPT-4: J1885 09/01/2018 URINALYSIS NONAUTO W/O SCOPE CPT-4: 95645 06/21/2018 URINE CULTURE/ COLONY COUNT CPT-4: 88791 06/21/2018 URINE CULTURE/ COLONY COUNT CPT-4: 32217 02/07/2014 URINALYSIS NONAUTO W/O SCOPE CPT-4: 36496 02/07/2014 TDAP VACCINE 7 YRS/> IM CPT-4: 03980 01/19/2014 IMMUNIZATION ADMIN CPT-4: 41750 01/19/2014 URINE CULTURE/ COLONY COUNT CPT-4: 95570 01/03/2014 URINALYSIS NONAUTO W/O SCOPE CPT-4: 27604 01/03/2014 URINE CULTURE/ COLONY COUNT CPT-4: 57845 11/25/2013 INJ TRIGGER POINT 1/2 MUSCL CPT-4: 71937 10/09/2010 TRIAMCINOLONE ACET INJ NOS CPT-4: J3301 10/09/2010 METHYLPREDNISOLONE 40 MG INJ CPT-4: J1030 10/09/2010 Vital Signs Date Vital 09/07/2019 Blood Pressure 1: 136/94 Code: 8480-6 BMI: 32.2 Code: 38992-7 Heart Rate 1: 84 bpm Height: 5'2" Respiratory Rate: 20 bpm SpO2: 98% Tempera ture: 36.8 (C) / 98.2 (F) Weight: 173 lbs 09/01/2018 BMI: 32.0 Code: 03037-0 Heart Rate 1: 76 bpm Height: 5 '2" Respiratory Rate: 20 bpm Temperature: 36.9 (C) / 98.4 (F) Weight: 172 lbs 08/16/2018 Blood Pressure 1: 130/80 Code: 8480-6 Heart Rate 1: 91 bpm Respiratory Rate: 18 bpm SpO2: 97% Temperature: 36.7 (C) / 98.1 (F) We ight: 169 lbs 03/30/2018 Blood Pressure 1: 136/82 Code: 8480-6 BMI: 30.3 Code: 95632-7 Heart Rate 1: 72 bpm Height: 5'2" Respiratory Rate: 20 bpm SpO2: 98% Tempera ture: 36.8 (C) / 98.2 (F) Weight: 163 lbs 03/19/2017 Blood Pressure 1: 132/82 Code: 8480-6 BMI: 30.2 Code: 25909-5 Heart Rate 1: 72 bpm Height: 5'2" Respiratory Rate: 20 bpm Temperature: 36 .6 (C) / 97.9 (F) Weight: 165 lbs 04/17/2016 Blood Pressure 1: 124/82 Code: 8480-6 BMI: 29.6 Code: 75414-2 Heart Rate 1: 82 bpm Height: 5'2" Respiratory Rate: 22 bpm SpO2: 98% Tempera ture: 37.0 (C) / 98.6 (F) Weight: 162 lbs 01/18/2015 Blood Pressure 1: 118/78 Code: 8480-6 BMI: 27.8 Code: 59196-4 Heart Rate 1: 78 bpm Height: 5'2" Respiratory Rate: 20 bpm Temperature: 36 .3 (C) / 97.3 (F) Weight: 152 lbs 04/18/2013 Blood Pressure 1: 110/62 Code: 8480-6 BMI: 26.2 Code: 96585-2 Heart Rate 1: 66 bpm Height: 5'2" Respiratory Rate: 22 bpm Temperature: 36 .3 (C) / 97.4 (F) Weight: 143 lbs 10/26/2012 Blood Pressure 1: 124/78 Code: 8480-6 BMI: 26.2 Code: 62021-3 Heart Rate 1: 76 bpm Height: 5'3" Respiratory Rate: 20 bpm Temperature: 36 .6 (C) / 97.9 (F) Weight: 148 lbs 02/02/2012 Blood Pressure 1: 122/80 Code: 8480-6 BMI: 26.2 Code: 05686-1 Heart Rate 1: 72 bpm Height: 5'3" Respiratory Rate: 20 bpm Temperature: 36 .7 (C) / 98.0 (F) Weight: 148 lbs 08/28/2011 Blood Pressure 1: 114/60 Code: 8480-6 BMI: 24.8 Code: 23938-6 Heart Rate 1: 72 bpm Height: 5'3" Respiratory Rate: 20 bpm Temperature: 36 .5 (C) / 97.7 (F) Weight: 140 lbs 01/07/2011 Blood Pressure 1: 120/74 Code: 8480-6 BMI: 27.1 Code: 10355-3 Height: 5'2" Weight: 148 lbs 10/09/2010 Blood [...] arms Encounters Encounter Performer Location Codes Date ([id number]) PREV VISIT EST AGE 40-64 Diagnosis: 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 CPT-4: 00601 09/07/2019 ([id number]) OFFICE/OUTPATIENT VISIT EST Diagnosis: Low back pain[ICD10: M54.5] Diagnosis: Radiculopathy, lumbar region[ICD10: M54.16] Milena Washburn [employer] CPT-4: 50640 09/01/2018 ([id number]) OFFICE/OUTPATIENT VISIT EST Diagnosis: Acute upper respiratory infection, unspecified[ICD10: J06.9] Angeli CRUZ [employer] CPT-4: 45077 08/16/2018 ([id number]) NURSE/OUTPATIENT VISIT EST Diagnosis: Urinary tract infection, site not specified[ICD10: N39.0] Diagnosis: Hematuria, unspecified[ICD10: R31.9] Milena Washburn 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] [facility] CPT - 4: 65127 03/19/2017 ([id number]) PREV VISIT EST AGE 40-64 Diagnosis: Encounter for general adult medical examination without abnormal findings[ICD10: Z00.00] Diagnosis: Abnormal weight gain[ICD10: R63.5] Diagnosis: Body mass index (BMI) 29.0-29.9, adult[ICD10: Z68.29] Delilah [facility] CPT-4: 49381 04/17/2016 ([id number]) PREV VISIT EST AGE 40-64 Diagnosis: ROUTINE MEDICAL EXAM[ICD9: V70.0] Diagnosis: Shoulder pain, bilateral[ICD9: 719.41] Liz VanCesarre [facility] CPT-4: 75740 01/18/2015 ([id number]) OFFICE/OUTPATIENT VISIT EST Diagnosis: URINARY TRACT INFECTION[ICD9: 599.0] Milena [facility] CPT-4: 06198 02/07/2014 ([id number]) OFFICE/OUTPATIENT VISIT EST Diagnosis: VACCINE FOR TDAP[ICD10: Z23] [facility]ena [facility] CPT-4: 63743 01/19/2014 ([id number]) OFFICE/OUTPATIENT VISIT EST Diagnosis: URINARY TRACT INFECTION[ICD9: 599.0] [facility] CPT-4: 44980 01/03/2014 ([id number]) OFFICE/OUTPATIENT VISIT EST Diagnosis: Flank pain[ICD9: 789.00] Milena Abellizetgianna PAYANMILENA Maddison [facility] CPT-4: 48356 11/25/2013 ([id number]) OFFICE/OUTPATIENT VISIT EST Diagnosis: DYSPHAGIA, NOS[ICD9: 787.20] Diagnosis: Foot pain[ICD9: 729.5] Milena Torres DO [employer] CPT-4: 88086 04/18/2013 ([id number]) PREV VISIT EST AGE 40-64 Diagnosis: ROUTINE MEDICAL EXAM[ICD9: V70.0] Milena Moses S. ABELNDGIANNA DO [employer] CPT-4: 26688 10/26/2012 ([id number]) PREV VISIT EST AGE 40-64 Diagnosis: ROUTINE MEDICAL EXAM[ICD9: V70.0] Milena Moses SStephanie BOBONDER [employer] CPT-4: 73213 02/02/2012 OFFICE/OUTPATIENT VISIT EST Diagnosis: SINUSITIS, ACUTE[ICD9: 461.9] Diagnosis: Benign positional vertigo[ICD9: 386.11] Milena CRUZ [employer] CPT-4: 87911 08/28/2011 ([id number]) OFFICE/OUTPATIENT VISIT EST Milena MC SStephanie BOBONDGIANNA [employer] CPT-4: 25249 10/09/2010 Plan of Care Planned Activity Notes Codes Status Date Visit Diagnosis Plan: Screening for malignant neoplasm of breast Discussion: mammogram to be ordered. ICD-9 : V76.10 ICD-10 : Z12.39 09/07/2019 Visit Diagnosis Plan: Encounter for [facility] adult medical examination without abnormal findings Discussion: will update fasting labs [facility] lab. had colonoscopy in 2012 and [...] : D17.0 09/07/2019 Appointment: BarreraGalo guoyson Chelsy [address] [place], [place] [phone] Annual Well Visit 09/07/2019 Care Plan: MAMMOGRAM SCREENING LOINC : 2 6347-5 Pending 09/07/2019 Appointment: BarreraAngeli guo [address] [place] [address] US RESCHEDULED 08/31/2019 Visit Diagnosis Plan: Low back pain Discussion: Stretc hes, Ice, topical muscle rub OMT done Toradol now Celebrex and flexeril Recheck in 1 week if persists or worsening ICD-9 : 724.2 ICD-10 : M54.5 09/01/2018 Appointment: Milena Cruz WPtel: [facility] [address] ACUTE ILLNESS 09/01/2018 Patient Education: cyclobenzaprine- [employer] Coupon [id number] [email or web address] Completed 09/01/2018 Visit Diagnosis Plan: Acute upper respiratory infectio n, unspecified Discussion: zpack and medrol pack prescribed for symptom management. ok to continue with claritin daily. instructed to use humidifier at home in room to assist with drainage, especially with symptoms worse upon awakening. ICD-9 : 465.9 ICD-10 : J06.9 08/16/2018 Appointment: Angeli Rust [address] [place], [place] [id number] ACUTE ILLNESS 08/16/2018 Patient Education: Medrol (Driss)- [employer] Coupon [phone] [email or web address] Completed 08/16/2018 Appointment: Milena Cruz WPtel: [phone] [phone] [facility] 06/21/2018 Visit Diagnosis Plan: Gastro-esophageal reflux disease without esophagitis Discussion: Stable on omeprazole--patient has had esophageal stricture in past as well as overproduction in acid on pH manometry so has to stay with PPI and discussed repeat EGD if having worsening symptoms or dysphagia ICD-9 : 530.81 ICD-10 : K21.9 03/30/2018 Visit Diagnosis Plan: Encounter for [facility] adult medical examination without abnormal findings Discussion: Update fasting lab Discussed diet/exercise at length including weight bearing exercise At least 1000-1500mg calcium a day between diet and supplement in addition to Vitamin D 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 ICD-9 : V70.9 ICD-10 : Z00.00 03/30/2018 Appointment: Milena Cruz WPtel: [address] [place], [place] [phone] Annual Well Visit 03/30/2018 Patient Education: Patient [...] disease without esophagitis Discussion: Continue omeprazole Discussed skilled nursing use of PPIs and risk but patient has tried H2 Blockers and has breakthrough symptoms Start chewable MV daily ICD-9 : 530.81 ICD-10 : K21.9 03/19/2017 Appointment: Milena Cruz WPtel: [address] [place], [place] [id number] MEDICATION REVIEW 03/19/2017 Patient Education: Patient Medication [...] if any occur 04/17/2016 Appointment: Delilah Jiang [address] [facility] Annual Well Visit 04/17/2016 Patient Education: Patient Medication Summary Completed 04/17/2016 Appointment: Liz Bolaños WPtel: [address] [place], [place] [phone] ACUTE ILLNESS 04/12/2015 Visit Plan: Will return for fasting labs - CBC, CMP, TSH, Free T4, Lipid Panel Start Shoulder Stretches and Bilateral ROM exercises Ibuprofen 800 mg PO bid Recommended follow-up with Nicole Mayer 01/18/2015 Appointment: Liz Bolaños WPtel: [address] [place], [place] [id number] 01/17 appt confirmed cn Annual Well Visit 2014 Patient Education: Patient Medication Summary Completed 01/18/2015 Appointment: Milena Cruz WPtel: [address] [place], [place] [phone] UA 02/07/2014 Patient Education: Patient Medication Summary Completed 02/07/2014 Appointment: Milena Cruz WPtel: [address] [place], [place] [phone] INJECTION 01/19/2014 Patient Education: Patient Medication Summary Completed 01/19/2014 Appointment: Liz Bolaños WPtel: [address] [place], [place] [phone] ACUTE ILLNESS 01/04/2014 Appointment: Milena Cruz WPtel: [address] [place], [place] [phone] UA 01/03/2014 Patient Education: Patient Medication Summary Completed 01/03/2014 Appointment: Milena Cruz WPtel: [address] [place], [place] [phone] UA 11/25/2013 Patient Education: Patient Medication Summary Completed 11/25/2013 Visit Plan: Proceed with EGD Continue Za ntac but increase to BID Seeing podiatry for feet but will try Voltaren gel 04/18/2013 Appointment: Milena Cruz WPtel: [address] [place] [address] ACUTE ILLNESS 04/18/2013 Patient Education: Patient Medication Summary Completed 04/18/2013 Appointment: Milena Cruztel: [address] [place] [address] FOLLOW UP 01/25/2013 Visit Plan: Start daily Calcium with Vit D 500mg and fish oil 1gram daily Zyrtec routinely and add flonase Add Zantac 300mg q HS If dysphagia continues then will need EGD Check fasting lab 10/26/2012 Appointment: Milena Cruz WPtel: [address] [place] [address] Annual Well Visit 10/26/2012 Patient Education: Patient Medication Summary Completed 10/26/2012 Visit Plan: Check fasting lab 02/02/2012 Appointment: Milena Cruz WPtel: [address] [place] [address] PAP 02/02/2012 Patient Education: Patient Medication Summary Completed 02/02/2012 Visit Plan: Vestibular exercises Meclizi ne 25mg po TID Nasonex BID 08/28/2011 Appointment: Milena Cruztel: [address] [place] [address] ACUTE ILLNESS 08/28/2011 Patient Education: Patient Medication Summary Completed 08/28/2011 Appointment: Milena Cruztel: [address] [place] [address] BP CHECK 01/07/2011 Patient Education: Patient Medication Summary Completed 01/07/2011 Visit Plan: OMT done to thoracics Trigge r point injection as above Arthrotec 75mg po BID Pt will call in 5 days on how neck doing Pt will return at later date for mole removal to left axilla 10/09/2010 Appointment: Milena Cruztel: [address] [place] [address] ACUTE ILLNESS 10/09/2010 Patient Education: Patient Medication Summary Completed 10/09/2010 Appointment: [facility]Ste[facility] [phone] [facility] [facility] 11/07/2009 Patient Education: Patient Medication Summary Completed 11/07/2009 Referral: [facility] [phone] [facility] 04/18 patient will schedule appt Initiated Instructions [...]
--- OUTSIDE RECORDS SUMMARY | 2019-10-15 03:32 | XMS REPORT | CCD ---
Author Author Stefanie Cruz D.O. Organization [facility] Address [address] [place] [address] Phone Care Team Providers Care Emissions Inspector Name Role Phone Milena Cruz D.O., PP Unavailable CCM Unavailable Summary Purpose Interface Exchange Insurance Providers Payer name Policy type / Coverage type Covered republican ID Effective Begin Date Effective End Date Blue Cross Blue Shield Blue Cross/Blue Shield [id number] 2018 Unknown Family History Family History data not found Social History Social History Element Codes Description Effective Dates Marital status Unknown 08/28/[address]: [id number] Never smoker 08/28/2011 Allergies, Adverse Reactions, Alerts [...] Fill Instructions estradiol 1 mg tablet RxNorm: 044209 1 Tablet(s) Oral QD 09/07/2019 No Stop Date Active fluticasone propionate 50 mcg/actuation nasal spray,suspensi on RxNorm: 8258426 2 [place] Nasal every night at bedtime 09/07/2019 12/05/2019 Active omeprazole 40 mg capsule,delayed release RxNorm: 857713 TAKE ONE CAPSULE BY MOUTH DAILY 04/05/2019 06/03/2019 Inactive omeprazole 40 mg capsule,delayed release RxNorm: 495917 TAKE ONE CAPSULE BY MOUTH DAILY 01/03/2019 02/01/2019 Inactive Celebrex 200 mg capsule RxNorm: 170499 TAKE ONE CAPSULE BY MOUTH TWICE A DAY NEEDED 10/26/2018 11/24/2018 Inactive fluticasone 50 mcg/actuation nasal spray,suspension RxNorm: 1839092 2 [place] NASAL QHS 10/18/2018 01/15/2019 Inactive omeprazole 40 mg capsule,delayed release RxNorm: 867190 TAKE ONE CAPSULE BY MOUTH DAILY 10/01/2018 10/30/2018 Inactive Celebrex 200 mg capsule RxNorm: 371719 TAKE ONE CAPSULE BY MOUTH TWICE A DAY NEEDED 09/27/2018 10/25/2018 Inactive Medrol (Driss) 4 mg tablets in a dose pack RxNorm: 884233 Tablet(s) PO as directed 09/02/2018 09/06/2019 Inactive cyclobenzaprine 10 mg tablet RxNorm: 676325 1/2-1 Table t(s) PO TID as needed for muscle spasm 09/01/2018 No Stop Date Active Celebrex 200 mg capsule RxNorm: 026334 1 Capsule(s) PO BID for pain 09/01/2018 09/26/2018 Inactive Zithromax Z-Driss 250 mg tablet RxNorm: 357853 Tablet(s) take as directed PO 08/16/2018 08/31/2018 Inactive Medrol (Driss) 4 mg tablets in a dose pack RxNorm: 059332 Tablet(s) take as directed PO 08/16/2018 08/31/2018 Inactive Bactrim DS 800 mg-160 mg tablet RxNorm: 798981 1 Tablet(s) PO BID 1 08/28/2017 06/27/2018 Inactive Bactrim DS 800 mg-160 mg tablet RxNorm: 650716 1 Tablet(s) PO BID 1 08/28/2017 07/04/2018 Inactive Macrobid 100 mg capsule RxNorm: 262934 1 Capsule(s) PO BID 06/23/20 18 06/22/2018 Inactive Macrobid 100 mg capsule RxNorm: 515209 1 Capsule(s) PO BID 06/23/20 18 06/27/2018 Inactive fluticasone 50 mcg/actuation nasal spray,suspension RxNorm: 8805792 SPRAY TWO SPRAYS IN EACH NOSTRIL ONCE DAILY EVERY NIGHT AT BEDTIME 04/13/201804/2018 Inactive omeprazole 40 mg capsule,delayed release RxNorm: 924629 1 Capsu le(s) PO QD 04/06/2018 09/30/2018 Inactive fluticasone 50 mcg/actuation nasal spray,suspension RxNorm: 1166640 2 [place] NASAL QHS 09/28/2017 09/27/2017 Inactive omeprazole 40 mg capsule,delayed release RxNorm: 146334 1 Capsu le(s) PO QD 03/19/2017 04/06/2018 Inactive Flonase Allergy Relief 50 mcg/actuation nasal spray,suspensi on RxNorm: 0261228 2 [place] NASAL QHS to each nostril 02/23/2017 09/28/2017 Inactive Flonase Allergy Relief 50 mcg/actuation nasal spray,suspensi on RxNorm: 6560295 2 [place] NASAL QHS to each nostril 06/11/2016 02/23/2017 Inactive phentermine 37.5 mg tablet RxNorm: 574797 1 Tablet(s) PO QD 016 05/16/2016 Inactive Flonase 50 mcg/actuation nasal spray,suspension RxNorm: 1797 933 2 [place] NASAL QHS 12/24/2015 06/11/2016 Inactive [SAVINGS FOR UNI NSURED PATIENTS -- BIN:[id number], PCN: ASPROD1, Group: [id number], ID# [id number], Process claim through [employer], for questions: . THIS IS NOT INSURANCE.] Flonase 50 mcg/actuation nasal spray,suspension RxNorm: 8963 23 2 [place] NASAL QHS 04/25/2015 12/24/2015 Inactive [SAVINGS FOR UNI NSURED PATIENTS -- BIN:[id number], PCN: ASPROD1, Group: [id number], ID# [id number], Process claim through [employer], for questions: . THIS IS NOT INSURANCE.] ibuprofen 800 mg tablet RxNorm: 406202 1 Tablet(s) PO BID 03/26/2015 04/24/2015 Inactive ibuprofen 800 mg tablet RxNorm: 214816 1 Tablet(s) PO BID 02/19/2015 03/26/2015 Inactive ibuprofen 800 mg tablet RxNorm: 434487 1 Tablet(s) PO BID 01/18/2015 02/19/2015 Inactive Flonase 50 mcg/actuation nasal spray,suspension RxNorm: 8963 23 2 [place] NASAL QHS 08/25/2014 04/24/2015 Inactive [SAVINGS FOR UNI NSURED PATIENTS -- BIN:291819, PCN: ASPROD1, Group: [id number], ID# [id number], Process claim through [employer], for questions: . THIS IS NOT INSURANCE.] Flonase 50 mcg/actuation nasal spray,suspension RxNorm: 8963 23 2 [place] NASAL QHS 05/29/2014 08/24/2014 Inactive [SAVINGS FOR UNI NSURED PATIENTS -- BIN:[id number], PCN: ASPROD1, Group: [id number], ID# [id number], Process claim through [employer], for questions: . THIS IS NOT INSURANCE.] Macrobid 100 mg capsule RxNorm: 052777 1 Capsule(s) PO BID 01/04/20 14 01/09/2014 Inactive [SAVINGS FOR UNINSURED PATIE NTS -- BIN:[id number], PCN: ASPROD1, Group: [id number], ID# [id number], Process claim through [employer], for questions: . THIS IS NOT INSURANCE.] Macrobid 100 mg capsule RxNorm: 800691 1 Capsule(s) PO BID 01/04/20 14 01/02/2014 Inactive Flonase 50 mcg/actuation nasal spray,suspension RxNorm: 8963 23 2 [place] NASAL QHS 10/13/2013 05/29/2014 Inactive Zantac 300 mg tablet RxNorm: 420939 Tablet(s) PO TAKE O NE TABLET BY MOUTH AT BEDTIME 03/28/2013 03/18/2017 Inactive Zantac 300 mg tablet RxNorm: 857443 1 Tablet(s) PO QHS 10/26/2012 Inactive flax seed oil RxNorm: 1 PO QD No Start Date Active Fish Oil 1,000 mg capsule RxNorm: 1 Capsule(s) PO QD No Start Date Active Zyrtec 10 mg tablet RxNorm: 3157975 1 Tablet(s) PO QD No Start Date Active Medrol (Driss) 4 mg tablets in a dose pack RxNorm: 755253 Tablet(s) PO as directed No Start Date 09/01/2018 Inactive omeprazole 40 mg capsule,delayed release RxNorm: 408838 1 Capsu le(s) PO QD No Start Date 03/18/2017 Inactive Voltaren 1 % Topical Gel RxNorm: 056732 1 Gram(s) TOP QID No Start Date 03/18/2017 Inactive Flonase 50 mcg/actuation nasal spray,suspension RxNorm: 8963 23 2 [place] NASAL QHS No Start Date 10/13/2013 Inactive Nexium 40 mg capsule,delayed release RxNorm: 783481 1 Capsule(s ) PO QD No Start Date 03/18/2017 Inactive Medication Administered No Medication Administered data Immunizations Vaccine Codes Date Status Tetanus, Diptheria, Pertussis CVX: 115 01/19/2014 Results No Results data Procedures Procedure Codes Date THER/PROPH/DIAG INJ SC/IM CPT-4: 89144 09/01/2018 KETOROLAC TROMETHAMINE INJ CPT-4: J1885 09/01/2018 URINALYSIS NONAUTO W/O SCOPE CPT-4: 20264 06/21/2018 URINE CULTURE/ COLONY COUNT CPT-4: 16834 06/21/2018 URINE CULTURE/ COLONY COUNT CPT-4: 21296 02/07/2014 URINALYSIS NONAUTO W/O SCOPE CPT-4: 47713 02/07/2014 TDAP VACCINE 7 YRS/> IM CPT-4: 34224 01/19/2014 IMMUNIZATION ADMIN CPT-4: 32618 01/19/2014 URINE CULTURE/ COLONY COUNT CPT-4: 11721 01/03/2014 URINALYSIS NONAUTO W/O SCOPE CPT-4: 63861 01/03/2014 URINE CULTURE/ COLONY COUNT CPT-4: 03123 11/25/2013 INJ TRIGGER POINT 1/2 MUSCL CPT-4: 66540 10/09/2010 TRIAMCINOLONE ACET INJ NOS CPT-4: J3301 10/09/2010 METHYLPREDNISOLONE 40 MG INJ CPT-4: J1030 10/09/2010 Vital Signs Date Vital 09/07/2019 Blood Pressure 1: 136/94 Code: 8480-6 BMI: 32.2 Code: 12472-2 Heart Rate 1: 84 bpm Height: 5'2" Respiratory Rate: 20 bpm SpO2: 98% Tempera ture: 36.8 (C) / 98.2 (F) Weight: 173 lbs 09/01/2018 BMI: 32.0 Code: 53520-8 Heart Rate 1: 76 bpm Height: 5 '2" Respiratory Rate: 20 bpm Temperature: 36.9 (C) / 98.4 (F) Weight: 172 lbs 08/16/2018 Blood Pressure 1: 130/80 Code: 8480-6 Heart Rate 1: 91 bpm Respiratory Rate: 18 bpm SpO2: 97% Temperature: 36.7 (C) / 98.1 (F) We ight: 169 lbs 03/30/2018 Blood Pressure 1: 136/82 Code: 8480-6 BMI: 30.3 Code: 95381-9 Heart Rate 1: 72 bpm Height: 5'2" Respiratory Rate: 20 bpm SpO2: 98% Tempera ture: 36.8 (C) / 98.2 (F) Weight: 163 lbs 03/19/2017 Blood Pressure 1: 132/82 Code: 8480-6 BMI: 30.2 Code: 22502-6 Heart Rate 1: 72 bpm Height: 5'2" Respiratory Rate: 20 bpm Temperature: 36 .6 (C) / 97.9 (F) Weight: 165 lbs 04/17/2016 Blood Pressure 1: 124/82 Code: 8480-6 BMI: 29.6 Code: 15003-8 Heart Rate 1: 82 bpm Height: 5'2" Respiratory Rate: 22 bpm SpO2: 98% Tempera ture: 37.0 (C) / 98.6 (F) Weight: 162 lbs 01/18/2015 Blood Pressure 1: 118/78 Code: 8480-6 BMI: 27.8 Code: 50072-4 Heart Rate 1: 78 bpm Height: 5'2" Respiratory Rate: 20 bpm Temperature: 36 .3 (C) / 97.3 (F) Weight: 152 lbs 04/18/2013 Blood Pressure 1: 110/62 Code: 8480-6 BMI: 26.2 Code: 37912-3 Heart Rate 1: 66 bpm Height: 5'2" Respiratory Rate: 22 bpm Temperature: 36 .3 (C) / 97.4 (F) Weight: 143 lbs 10/26/2012 Blood Pressure 1: 124/78 Code: 8480-6 BMI: 26.2 Code: 92828-8 Heart Rate 1: 76 bpm Height: 5'3" Respiratory Rate: 20 bpm Temperature: 36 .6 (C) / 97.9 (F) Weight: 148 lbs 02/02/2012 Blood Pressure 1: 122/80 Code: 8480-6 BMI: 26.2 Code: 35754-4 Heart Rate 1: 72 bpm Height: 5'3" Respiratory Rate: 20 bpm Temperature: 36 .7 (C) / 98.0 (F) Weight: 148 lbs 08/28/2011 Blood Pressure 1: 114/60 Code: 8480-6 BMI: 24.8 Code: 40631-3 Heart Rate 1: 72 bpm Height: 5'3" Respiratory Rate: 20 bpm Temperature: 36 .5 (C) / 97.7 (F) Weight: 140 lbs 01/07/2011 Blood Pressure 1: 120/74 Code: 8480-6 BMI: 27.1 Code: 28982-6 Height: 5'2" Weight: 148 lbs 10/09/2010 Blood [...] arms Encounters Encounter Performer Location Codes Date ([id number]) PREV VISIT EST AGE 40-64 Diagnosis: 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, 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] Diagnosis: Encounter for general adult medical examination without abnormal findings[ICD10: Z00.00] Diagnosis: Elevated blood pressure reading[ICD10: R03.0] Diagnosis: Screening for malignant neoplasm of breast[ICD10: Z12.39] Diagnosis: Tinnitus[ICD10: H93.19] Angeli Washburn [facility] [employer] [employer] CPT-4: 05342 09/07/2019 ([id number]) OFFICE/OUTPATIENT VISIT EST Diagnosis: Low back pain[ICD10: M54.5] Diagnosis: Radiculopathy, lumbar region[ICD10: M54.16] Milena Washburn [facility] [employer] CPT-4: 27444 09/01/2018 ([id number]) OFFICE/OUTPATIENT VISIT EST Diagnosis: Acute upper respiratory infection, unspecified[ICD10: J06.9] Angeli CRUZ [employer] CPT-4: 92145 08/16/2018 ([id number]) NURSE/OUTPATIENT VISIT EST Diagnosis: Urinary tract infection, site not specified[ICD10: N39.0] Diagnosis: Hematuria, unspecified[ICD10: R31.9] Milena Washburn [facility] [employer] CPT-4: 70579 06/21/2018 ([id number]) PREV VISIT EST AGE 40-64 Diagnosis: Encounter for general adult medical examination without abnormal findings[ICD10: Z00.00] Diagnosis: Gastro-esophageal reflux disease without esophagitis[ICD10: K21.9] Milena Washburn SAUNDRA [employer] CPT-4: 25896 03/30/2018 ([id number]) OFFICE/OUTPATIENT VISIT EST Diagnosis: Gastro-esophageal reflux disease without esophagitis[ICD10: K21.9] Diagnosis: Cervicalgia[ICD10: M54.2] Diagnosis: 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, 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] [facility] CPT - 4: 30001 03/19/2017 ([id number]) PREV VISIT EST AGE 40-64 Diagnosis: Encounter for general adult medical examination without abnormal findings[ICD10: Z00.00] Diagnosis: Abnormal weight gain[ICD10: R63.5] Diagnosis: Body mass index (BMI) 29.0-29.9, adult[ICD10: Z68.29] Delilha [facility] CPT-4: 24630 04/17/2016 ([id number]) PREV VISIT EST AGE 40-64 Diagnosis: ROUTINE MEDICAL EXAM[ICD9: V70.0] Diagnosis: Shoulder pain, bilateral[ICD9: 719.41] Liz VanCesarre [facility] CPT-4: 47882 01/18/2015 ([id number]) OFFICE/OUTPATIENT VISIT EST Diagnosis: URINARY TRACT INFECTION[ICD9: 599.0] [facility] CPT-4: 75504 02/07/2014 ([id number]) OFFICE/OUTPATIENT VISIT EST Diagnosis: VACCINE FOR TDAP[ICD10: Z23] [facility] CPT-4: 38816 01/19/2014 ([id number]) OFFICE/OUTPATIENT VISIT EST Diagnosis: URINARY TRACT INFECTION[ICD9: 599.0] [facility] CPT-4: 83300 01/03/2014 ([id number]) OFFICE/OUTPATIENT VISIT EST Diagnosis: Flank pain[ICD9: 789.00] Milena Abellizetgianna PAYANMILENA Maddison [facility] CPT-4: 29249 11/25/2013 ([id number]) OFFICE/OUTPATIENT VISIT EST Diagnosis: DYSPHAGIA, NOS[ICD9: 787.20] Diagnosis: Foot pain[ICD9: 729.5] Milena Torres DO [employer] CPT-4: 45055 04/18/2013 ([id number]) PREV VISIT EST AGE 40-64 Diagnosis: ROUTINE MEDICAL EXAM[ICD9: V70.0] Milena Moses S. ABELNDGIANNA DO [employer] CPT-4: 33729 10/26/2012 ([id number]) PREV VISIT EST AGE 40-64 Diagnosis: ROUTINE MEDICAL EXAM[ICD9: V70.0] Milena Moses SStephanie BOBONDER [employer] CPT-4: 68458 02/02/2012 OFFICE/OUTPATIENT VISIT EST Diagnosis: SINUSITIS, ACUTE[ICD9: 461.9] Diagnosis: Benign positional vertigo[ICD9: 386.11] Milena CR[facility] [employer] CPT-4: 42897 08/28/2011 ([id number]) OFFICE/OUTPATIENT VISIT EST Milena MC SStephanie BOBONDGIANNA [employer] CPT-4: 20346 10/09/2010 Plan of Care Planned Activity Notes Codes Status Date Visit Diagnosis Plan: Screening for malignant neoplasm of breast Discussion: mammogram to be ordered. ICD-9 : V76.10 ICD-10 : Z12.39 09/07/2019 Visit Diagnosis Plan: Encounter for [facility] adult medical examination without abnormal findings Discussion: will update fasting labs thr [facility]. had colonoscopy in 2012 and not [...] : D17.0 09/07/2019 Appointment: BarreraGalo guoyson Chelsy [address] [place], [place] [phone] Annual Well Visit 09/07/2019 Care Plan: MAMMOGRAM SCREENING LOINC : 2 6347-5 Pending 09/07/2019 Appointment: BarreraAngeli guo [address] [place] [address] US RESCHEDULED 08/31/2019 Visit Diagnosis Plan: Low back pain Discussion: Stretc hes, Ice, topical muscle rub OMT done Toradol now Celebrex and flexeril Recheck in 1 week if persists or worsening ICD-9 : 724.2 ICD-10 : M54.5 09/01/2018 Appointment: Milena Cruz WPtel: [facility] [place] [address] ACUTE ILLNESS 09/01/2018 Patient Education: cyclobenzaprine- [employer] Coupon [id number] [email or web address] Completed 09/01/2018 Visit Diagnosis Plan: Acute upper respiratory infectio n, unspecified Discussion: zpack and medrol pack prescribed for symptom management. ok to continue with claritin daily. instructed to use humidifier at home in room to assist with drainage, especially with symptoms worse upon awakening. ICD-9 : 465.9 ICD-10 : J06.9 08/16/2018 Appointment: Angeli Rust [address] [place], [place] [id number] ACUTE ILLNESS 08/16/2018 Patient Education: Medrol (Driss)- [employer] Coupon [phone] [email or web address] Completed 08/16/2018 Appointment: Milena Cruz WPtel: [phone] [phone] [facility] 06/21/2018 Visit Diagnosis Plan: Gastro-esophageal reflux disease without esophagitis Discussion: Stable on omeprazole--patient has had esophageal stricture in past as well as overproduction in acid on pH manometry so has to stay with PPI and discussed repeat EGD if having worsening symptoms or dysphagia ICD-9 : 530.81 ICD-10 : K21.9 03/30/2018 Visit Diagnosis Plan: Encounter for [facility] adult medical examination without abnormal findings Discussion: Update fasting lab Discussed diet/exercise at length including weight bearing exercise At least 1000-1500mg calcium a day between diet and supplement in addition to Vitamin D Seeing [employer] yearly ICD-9 : V70.9 ICD-10 : Z00.00 03/30/2018 Appointment: Milena Cruz WPtel: [address] [place], [place] [phone] Annual Well Visit 03/30/2018 Patient Education: Patient [...] disease without esophagitis Discussion: Continue omeprazole Discussed retirement use of PPIs and risk but patient has tried H2 Blockers and has breakthrough symptoms Start chewable MV daily ICD-9 : 530.81 ICD-10 : K21.9 03/19/2017 Appointment: Milena Cruz WPtel: [address] [place], [place] [id number] MEDICATION REVIEW 03/19/2017 Patient Education: Patient Medication [...] if any occur 04/17/2016 Appointment: Delilah Jiang [address] [facility] Annual Well Visit 04/17/2016 Patient Education: Patient Medication Summary Completed 04/17/2016 Appointment: Liz Bolaños WPtel: [address] [place], [place] [phone] ACUTE ILLNESS 04/12/2015 Visit Plan: Will return for fasting labs - CBC, CMP, TSH, Free T4, Lipid Panel Start Shoulder Stretches and Bilateral ROM exercises Ibuprofen 800 mg PO bid Recommended follow-up with Nicole Mayer 01/18/2015 Appointment: Liz Bolaños WPtel: [address] [place], [place] [id number] 01/17 appt confirmed cn Annual Well Visit 2014 Patient Education: Patient Medication Summary Completed 01/18/2015 Appointment: Milena Cruz WPtel: [address] [place], [place] [phone] UA 02/07/2014 Patient Education: Patient Medication Summary Completed 02/07/2014 Appointment: Milena Cruz WPtel: [address] [place], [place] [phone] INJECTION 01/19/2014 Patient Education: Patient Medication Summary Completed 01/19/2014 Appointment: Liz Bolaños WPtel: [address] [place], [place] [phone] ACUTE ILLNESS 01/04/2014 Appointment: Milena Cruz WPtel: [address] [place], [place] [phone] UA 01/03/2014 Patient Education: Patient Medication Summary Completed 01/03/2014 Appointment: Milena Cruz WPtel: [address] [place], [place] [phone] UA 11/25/2013 Patient Education: Patient Medication Summary Completed 11/25/2013 Visit Plan: Proceed with EGD Continue Za ntac but increase to BID Seeing podiatry for feet but will try Voltaren gel 04/18/2013 Appointment: Milena Cruz WPtel: [address] [place] [address] ACUTE ILLNESS 04/18/2013 Patient Education: Patient Medication Summary Completed 04/18/2013 Appointment: Milena Cruztel: [address] [place] [address] FOLLOW UP 01/25/2013 Visit Plan: Start daily Calcium with Vit D 500mg and fish oil 1gram daily Zyrtec routinely and add flonase Add Zantac 300mg q HS If dysphagia continues then will need EGD Check fasting lab 10/26/2012 Appointment: Milena Cruz WPtel: [address] [place] [address] Annual Well Visit 10/26/2012 Patient Education: Patient Medication Summary Completed 10/26/2012 Visit Plan: Check fasting lab 02/02/2012 Appointment: Milena Cruz WPtel: [address] [place] [address] PAP 02/02/2012 Patient Education: Patient Medication Summary Completed 02/02/2012 Visit Plan: Vestibular exercises Meclizi ne 25mg po TID Nasonex BID 08/28/2011 Appointment: Milena Cruztel: [address] [place] [address] ACUTE ILLNESS 08/28/2011 Patient Education: Patient Medication Summary Completed 08/28/2011 Appointment: Milena Cruztel: [address] [place] [address] BP CHECK 01/07/2011 Patient Education: Patient Medication Summary Completed 01/07/2011 Visit Plan: OMT done to thoracics Trigge r point injection as above Arthrotec 75mg po BID Pt will call in 5 days on how neck doing Pt will return at later date for mole removal to left axilla 10/09/2010 Appointment: Milena Cruztel: [address] [place] [address] ACUTE ILLNESS 10/09/2010 Patient Education: Patient Medication Summary Completed 10/09/2010 Appointment: [facility]Ste[facility] [phone] [id number] [facility] 11/07/2009 Patient Education: Patient Medication Summary Completed 11/07/2009 Referral: [facility] [phone] [facility] 04/18 patient will schedule appt Initiated [...]
--- OUTSIDE RECORDS SUMMARY | 2019-10-15 03:32 | XMS REPORT | CCD ---
Author Author Stefanie Cruz D.O. Organization MILENA CRUZ DO [facility] Address [address] [place] [address] Phone Care Team Providers Care Certified Nurse Name Role Phone Milena Cruz D.O., PP Unavailable CCM Unavailable Summary Purpose Interface Exchange Insurance Providers Payer name Policy type / Coverage type Covered libertarian ID Effective Begin Date Effective End Date Blue Cross Blue Shield Blue Cross/Blue Shield [id number] 2018 Unknown Family History Family History data not found Social History Social History Element Codes Description Effective Dates Marital status Unknown 08/28/[address]: [id number] Never smoker 08/28/2011 Allergies, Adverse Reactions, Alerts [...] Fill Instructions estradiol 1 mg tablet RxNorm: 183463 1 Tablet(s) Oral QD 09/07/2019 No Stop Date Active fluticasone propionate 50 mcg/actuation nasal spray,suspensi on RxNorm: 3326315 2 [place] Nasal every night at bedtime 09/07/2019 12/05/2019 Active omeprazole 40 mg capsule,delayed release RxNorm: 280383 TAKE ONE CAPSULE BY MOUTH DAILY 04/05/2019 06/03/2019 Inactive omeprazole 40 mg capsule,delayed release RxNorm: 379698 TAKE ONE CAPSULE BY MOUTH DAILY 01/03/2019 02/01/2019 Inactive Celebrex 200 mg capsule RxNorm: 040981 TAKE ONE CAPSULE BY MOUTH TWICE A DAY NEEDED 10/26/2018 11/24/2018 Inactive fluticasone 50 mcg/actuation nasal spray,suspension RxNorm: 8792281 2 [place]chard NASAL QHS 10/18/2018 01/15/2019 Inactive omeprazole 40 mg capsule,delayed release RxNorm: 755772 TAKE ONE CAPSULE BY MOUTH DAILY 10/01/2018 10/30/2018 Inactive Celebrex 200 mg capsule RxNorm: 932197 TAKE ONE CAPSULE BY MOUTH TWICE A DAY NEEDED 09/27/2018 10/25/2018 Inactive Medrol (Driss) 4 mg tablets in a dose pack RxNorm: 269196 Tablet(s) PO as directed 09/02/2018 09/06/2019 Inactive cyclobenzaprine 10 mg tablet RxNorm: 913905 1/2-1 Table t(s) PO TID as needed for muscle spasm 09/01/2018 No Stop Date Active Celebrex 200 mg capsule RxNorm: 838976 1 Capsule(s) PO BID for pain 09/01/2018 09/26/2018 Inactive Zithromax Z-Driss 250 mg tablet RxNorm: 555314 Tablet(s) take as directed PO 08/16/2018 08/31/2018 Inactive Medrol (Driss) 4 mg tablets in a dose pack RxNorm: 645025 Tablet(s) take as directed PO 08/16/2018 08/31/2018 Inactive Bactrim DS 800 mg-160 mg tablet RxNorm: 719745 1 Tablet(s) PO BID 1 08/28/2017 06/27/2018 Inactive Bactrim DS 800 mg-160 mg tablet RxNorm: 640815 1 Tablet(s) PO BID 1 08/28/2017 07/04/2018 Inactive Macrobid 100 mg capsule RxNorm: 457948 1 Capsule(s) PO BID 06/23/20 18 06/22/2018 Inactive Macrobid 100 mg capsule RxNorm: 546097 1 Capsule(s) PO BID 06/23/20 18 06/27/2018 Inactive fluticasone 50 mcg/actuation nasal spray,suspension RxNorm: 9726519 SPRAY TWO SPRAYS IN EACH NOSTRIL ONCE DAILY EVERY NIGHT AT BEDTIME 04/13/201804/2018 Inactive omeprazole 40 mg capsule,delayed release RxNorm: 633035 1 Capsu le(s) PO QD 04/06/2018 09/30/2018 Inactive fluticasone 50 mcg/actuation nasal spray,suspension RxNorm: 5987822 2 [place] NASAL QHS 09/28/2017 09/27/2017 Inactive omeprazole 40 mg capsule,delayed release RxNorm: 189480 1 Capsu le(s) PO QD 03/19/2017 04/06/2018 Inactive Flonase Allergy Relief 50 mcg/actuation nasal spray,suspensi on RxNorm: 6482303 2 [place] NASAL QHS to each nostril 02/23/2017 09/28/2017 Inactive Flonase Allergy Relief 50 mcg/actuation nasal spray,suspensi on RxNorm: 3546186 2 [place] NASAL QHS to each nostril 06/11/2016 02/23/2017 Inactive phentermine 37.5 mg tablet RxNorm: 014911 1 Tablet(s) PO QD 016 05/16/2016 Inactive Flonase 50 mcg/actuation nasal spray,suspension RxNorm: 1797 933 2 [place]chard NASAL QHS 12/24/2015 06/11/2016 Inactive [SAVINGS FOR UNI NSURED PATIENTS -- BIN:[id number], PCN: ASPROD1, Group: [id number], ID# [id number], Process claim through Cree, for questions: . THIS IS NOT INSURANCE.] Flonase 50 mcg/actuation nasal spray,suspension RxNorm: 8963 23 2 [place]chard NASAL QHS 04/25/2015 12/24/2015 Inactive [SAVINGS FOR UNI NSURED PATIENTS -- BIN:[id number], PCN: ASPROD1, Group: [id number], ID# [id number], Process claim through MedImpact, for questions: . THIS IS NOT INSURANCE.] ibuprofen 800 mg tablet RxNorm: 960682 1 Tablet(s) PO BID 03/26/2015 04/24/2015 Inactive ibuprofen 800 mg tablet RxNorm: 354318 1 Tablet(s) PO BID 02/19/2015 03/26/2015 Inactive ibuprofen 800 mg tablet RxNorm: 013840 1 Tablet(s) PO BID 01/18/2015 02/19/2015 Inactive Flonase 50 mcg/actuation nasal spray,suspension RxNorm: 8963 23 2 [place] NASAL QHS 08/25/2014 04/24/2015 Inactive [SAVINGS FOR UNI NSURED PATIENTS -- BIN:[id number], PCN: ASPROD1, Group: [id number], ID# [id number], Process claim through MedImpact, for questions: . THIS IS NOT INSURANCE.] Flonase 50 mcg/actuation nasal spray,suspension RxNorm: 8963 23 2 [place] NASAL QHS 05/29/2014 08/24/2014 Inactive [SAVINGS FOR UNI NSURED PATIENTS -- BIN:[id number], PCN: ASPROD1, Group: [id number], ID# [id number], Process claim through MedImpact, for questions: . THIS IS NOT INSURANCE.] Macrobid 100 mg capsule RxNorm: 048262 1 Capsule(s) PO BID 01/04/20 14 01/09/2014 Inactive [SAVINGS FOR UNINSURED PATIE NTS -- BIN:[id number], PCN: ASPROD1, Group: [id number], ID# [id number], Process claim through MedImpact, for questions: . THIS IS NOT INSURANCE.] Macrobid 100 mg capsule RxNorm: 547944 1 Capsule(s) PO BID 01/04/20 14 01/02/2014 Inactive Flonase 50 mcg/actuation nasal spray,suspension RxNorm: 8963 23 2 [place] NASAL QHS 10/13/2013 05/29/2014 Inactive Zantac 300 mg tablet RxNorm: 140238 Tablet(s) PO TAKE O NE TABLET BY MOUTH AT BEDTIME 03/28/2013 03/18/2017 Inactive Zantac 300 mg tablet RxNorm: 157321 1 Tablet(s) PO QHS 10/26/2012 Inactive flax seed oil RxNorm: 1 PO QD No Start Date Active Fish Oil 1,000 mg capsule RxNorm: 1 Capsule(s) PO QD No Start Date Active Zyrtec 10 mg tablet RxNorm: 4639197 1 Tablet(s) PO QD No Start Date Active Medrol (Driss) 4 mg tablets in a dose pack RxNorm: 879775 Tablet(s) PO as directed No Start Date 09/01/2018 Inactive omeprazole 40 mg capsule,delayed release RxNorm: 895046 1 Capsu le(s) PO QD No Start Date 03/18/2017 Inactive Voltaren 1 % Topical Gel RxNorm: 420086 1 Gram(s) TOP QID No Start Date 03/18/2017 Inactive Flonase 50 mcg/actuation nasal spray,suspension RxNorm: 8963 23 2 [place] NASAL QHS No Start Date 10/13/2013 Inactive Nexium 40 mg capsule,delayed release RxNorm: 367081 1 Capsule(s ) PO QD No Start Date 03/18/2017 Inactive Medication Administered No Medication Administered data Immunizations Vaccine Codes Date Status Tetanus, Diptheria, Pertussis CVX: 115 01/19/2014 Results No Results data Procedures Procedure Codes Date THER/PROPH/DIAG INJ SC/IM CPT-4: 44931 09/01/2018 KETOROLAC TROMETHAMINE INJ CPT-4: J1885 09/01/2018 URINALYSIS NONAUTO W/O SCOPE CPT-4: 96521 06/21/2018 URINE CULTURE/ COLONY COUNT CPT-4: 47891 06/21/2018 URINE CULTURE/ COLONY COUNT CPT-4: 78906 02/07/2014 URINALYSIS NONAUTO W/O SCOPE CPT-4: 85632 02/07/2014 TDAP VACCINE 7 YRS/> IM CPT-4: 45945 01/19/2014 IMMUNIZATION ADMIN CPT-4: 22237 01/19/2014 URINE CULTURE/ COLONY COUNT CPT-4: 92700 01/03/2014 URINALYSIS NONAUTO W/O SCOPE CPT-4: 49555 01/03/2014 URINE CULTURE/ COLONY COUNT CPT-4: 90205 11/25/2013 INJ TRIGGER POINT 1/2 MUSCL CPT-4: 00667 10/09/2010 TRIAMCINOLONE ACET INJ NOS CPT-4: J3301 10/09/2010 METHYLPREDNISOLONE 40 MG INJ CPT-4: J1030 10/09/2010 Vital Signs Date Vital 09/07/2019 Blood Pressure 1: 136/94 Code: 8480-6 BMI: 32.2 Code: 78826-2 Heart Rate 1: 84 bpm Height: 5'2" Respiratory Rate: 20 bpm SpO2: 98% Tempera ture: 36.8 (C) / 98.2 (F) Weight: 173 lbs 09/01/2018 BMI: 32.0 Code: 58951-6 Heart Rate 1: 76 bpm Height: 5 '2" Respiratory Rate: 20 bpm Temperature: 36.9 (C) / 98.4 (F) Weight: 172 lbs 08/16/2018 Blood Pressure 1: 130/80 Code: 8480-6 Heart Rate 1: 91 bpm Respiratory Rate: 18 bpm SpO2: 97% Temperature: 36.7 (C) / 98.1 (F) We ight: 169 lbs 03/30/2018 Blood Pressure 1: 136/82 Code: 8480-6 BMI: 30.3 Code: 81462-7 Heart Rate 1: 72 bpm Height: 5'2" Respiratory Rate: 20 bpm SpO2: 98% Tempera ture: 36.8 (C) / 98.2 (F) Weight: 163 lbs 03/19/2017 Blood Pressure 1: 132/82 Code: 8480-6 BMI: 30.2 Code: 79674-2 Heart Rate 1: 72 bpm Height: 5'2" Respiratory Rate: 20 bpm Temperature: 36 .6 (C) / 97.9 (F) Weight: 165 lbs 04/17/2016 Blood Pressure 1: 124/82 Code: 8480-6 BMI: 29.6 Code: 45108-1 Heart Rate 1: 82 bpm Height: 5'2" Respiratory Rate: 22 bpm SpO2: 98% Tempera ture: 37.0 (C) / 98.6 (F) Weight: 162 lbs 01/18/2015 Blood Pressure 1: 118/78 Code: 8480-6 BMI: 27.8 Code: 92113-2 Heart Rate 1: 78 bpm Height: 5'2" Respiratory Rate: 20 bpm Temperature: 36 .3 (C) / 97.3 (F) Weight: 152 lbs 04/18/2013 Blood Pressure 1: 110/62 Code: 8480-6 BMI: 26.2 Code: 48370-9 Heart Rate 1: 66 bpm Height: 5'2" Respiratory Rate: 22 bpm Temperature: 36 .3 (C) / 97.4 (F) Weight: 143 lbs 10/26/2012 Blood Pressure 1: 124/78 Code: 8480-6 BMI: 26.2 Code: 23897-8 Heart Rate 1: 76 bpm Height: 5'3" Respiratory Rate: 20 bpm Temperature: 36 .6 (C) / 97.9 (F) Weight: 148 lbs 02/02/2012 Blood Pressure 1: 122/80 Code: 8480-6 BMI: 26.2 Code: 17841-2 Heart Rate 1: 72 bpm Height: 5'3" Respiratory Rate: 20 bpm Temperature: 36 .7 (C) / 98.0 (F) Weight: 148 lbs 08/28/2011 Blood Pressure 1: 114/60 Code: 8480-6 BMI: 24.8 Code: 68757-9 Heart Rate 1: 72 bpm Height: 5'3" Respiratory Rate: 20 bpm Temperature: 36 .5 (C) / 97.7 (F) Weight: 140 lbs 01/07/2011 Blood Pressure 1: 120/74 Code: 8480-6 BMI: 27.1 Code: 54676-0 Height: 5'2" Weight: 148 lbs 10/09/2010 Blood [...] arms Encounters Encounter Performer Location Codes Date ([id number]) PREV VISIT EST AGE 40-64 Diagnosis: 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, 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] Diagnosis: Encounter for general adult medical examination without abnormal findings[ICD10: Z00.00] Diagnosis: Elevated blood pressure reading[ICD10: R03.0] Diagnosis: Screening for malignant neoplasm of breast[ICD10: Z12.39] Diagnosis: Tinnitus[ICD10: H93.19] Angeli Washburn [facility] [employer] CPT-4: 08000 09/07/2019 ([id number]) OFFICE/OUTPATIENT VISIT EST Diagnosis: Low back pain[ICD10: M54.5] Diagnosis: Radiculopathy, lumbar region[ICD10: M54.16] Milena Washburn [facility] CPT-4: 29198 09/01/2018 ([id number]) OFFICE/OUTPATIENT VISIT EST Diagnosis: Acute upper respiratory infection, unspecified[ICD10: J06.9] Angeli CRUZ [employer] CPT-4: 84352 08/16/2018 ([id number]) NURSE/OUTPATIENT VISIT EST Diagnosis: Urinary tract infection, site not specified[ICD10: N39.0] Diagnosis: Hematuria, unspecified[ICD10: R31.9] Milena Washburn [facility] CPT-4: 54988 06/21/2018 ([id number]) PREV VISIT EST AGE 40-64 Diagnosis: Encounter for general adult medical examination without abnormal findings[ICD10: Z00.00] Diagnosis: Gastro-esophageal reflux disease without esophagitis[ICD10: K21.9] Milena Washburn SAUNDRA [employer] CPT-4: 42933 03/30/2018 ([id number]) OFFICE/OUTPATIENT VISIT EST Diagnosis: Gastro-esophageal reflux disease without esophagitis[ICD10: K21.9] Diagnosis: Cervicalgia[ICD10: M54.2] Diagnosis: 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, 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] Milena CRUZ DO [facility] CPT - 4: 25850 03/19/2017 ([id number]) PREV VISIT EST AGE 40-64 Diagnosis: Encounter for general adult medical examination without abnormal findings[ICD10: Z00.00] Diagnosis: Abnormal weight gain[ICD10: R63.5] Diagnosis: Body mass index (BMI) 29.0-29.9, adult[ICD10: Z68.29] Delilah CRUZ DO [facility] CPT-4: 85610 04/17/2016 ([id number]) PREV VISIT EST AGE 40-64 Diagnosis: ROUTINE MEDICAL EXAM[ICD9: V70.0] Diagnosis: Shoulder pain, bilateral[ICD9: 719.41] Liz VanCesarre MILENA CRUZ DO [facility] CPT-4: 03944 01/18/2015 ([id number]) OFFICE/OUTPATIENT VISIT EST Diagnosis: URINARY TRACT INFECTION[ICD9: 599.0] Milena CRUZ DO [facility] CPT-4: 33160 02/07/2014 ([id number]) OFFICE/OUTPATIENT VISIT EST Diagnosis: VACCINE FOR TDAP[ICD10: Z23] Milena CRUZ DO [facility] CPT-4: 64201 01/19/2014 ([id number]) OFFICE/OUTPATIENT VISIT EST Diagnosis: URINARY TRACT INFECTION[ICD9: 599.0] Milean CRUZ DO [facility] CPT-4: 49457 01/03/2014 ([id number]) OFFICE/OUTPATIENT VISIT EST Diagnosis: Flank pain[ICD9: 789.00] Milena Abellizetgianna PAYANMILENA Maddison SHELBY [facility] CPT-4: 88962 11/25/2013 ([id number]) OFFICE/OUTPATIENT VISIT EST Diagnosis: DYSPHAGIA, NOS[ICD9: 787.20] Diagnosis: Foot pain[ICD9: 729.5] Milena Torres DO [employer] CPT-4: 97657 04/18/2013 ([id number]) PREV VISIT EST AGE 40-64 Diagnosis: ROUTINE MEDICAL EXAM[ICD9: V70.0] Milena Moses S. ABELNDGIANNA DO [employer] CPT-4: 80706 10/26/2012 ([id number]) PREV VISIT EST AGE 40-64 Diagnosis: ROUTINE MEDICAL EXAM[ICD9: V70.0] Milena Moses SStephanie BOBONDER [employer] CPT-4: 65775 02/02/2012 OFFICE/OUTPATIENT VISIT EST Diagnosis: SINUSITIS, ACUTE[ICD9: 461.9] Diagnosis: Benign positional vertigo[ICD9: 386.11] Milena CRUZ [employer] CPT-4: 61173 08/28/2011 ([id number]) OFFICE/OUTPATIENT VISIT EST Milena MC SStephanie BOBONDGIANNA [employer] CPT-4: 98235 10/09/2010 Plan of Care Planned Activity Notes Codes Status Date Visit Diagnosis Plan: Screening for malignant neoplasm of breast Discussion: mammogram to be ordered. ICD-9 : V76.10 ICD-10 : Z12.39 09/07/2019 Visit Diagnosis Plan: Encounter for [facility] adult medical examination without abnormal findings Discussion: will update fasting labs thr [facility] lab. had colonoscopy in 2012 and not [...] : D17.0 09/07/2019 Appointment: BarreraGalo guoyson Chelsy [address] [place], [place] [phone] Annual Well Visit 09/07/2019 Care Plan: MAMMOGRAM SCREENING LOINC : 2 6347-5 Pending 09/07/2019 Appointment: BarreraAngeli guo [address] [place] [address] US RESCHEDULED 08/31/2019 Visit Diagnosis Plan: Low back pain Discussion: Stretc hes, Ice, topical muscle rub OMT done Toradol now Celebrex and flexeril Recheck in 1 week if persists or worsening ICD-9 : 724.2 ICD-10 : M54.5 09/01/2018 Appointment: Milena Cruz WPtel: [facility] [address] ACUTE ILLNESS 09/01/2018 Patient Education: cyclobenzaprine- OptimizeRX Coupon [id number] [email or web address] Completed 09/01/2018 Visit Diagnosis Plan: Acute upper respiratory infectio n, unspecified Discussion: zpack and medrol pack prescribed for symptom management. ok to continue with claritin daily. instructed to use humidifier at home in room to assist with drainage, especially with symptoms worse upon awakening. ICD-9 : 465.9 ICD-10 : J06.9 08/16/2018 Appointment: Angeli Rust [address] [place], [place] [id number] ACUTE ILLNESS 08/16/2018 Patient Education: Medrol (Driss)- Optimize[employer] Coupon [phone] [email or web address] Completed 08/16/2018 Appointment: Milena Cruz WPtel: [phone] [phone] [facility] 06/21/2018 Visit Diagnosis Plan: Gastro-esophageal reflux disease without esophagitis Discussion: Stable on omeprazole--patient has had esophageal stricture in past as well as overproduction in acid on pH manometry so has to stay with PPI and discussed repeat EGD if having worsening symptoms or dysphagia ICD-9 : 530.81 ICD-10 : K21.9 03/30/2018 Visit Diagnosis Plan: Encounter for [facility] adult medical examination without abnormal findings Discussion: Update fasting lab Discussed diet/exercise at length including weight bearing exercise At least 1000-1500mg calcium a day between diet and supplement in addition to Vitamin D 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 ICD-9 : V70.9 ICD-10 : Z00.00 03/30/2018 Appointment: Milena Cruz WPtel: [address] [place], [place] [phone] Annual Well Visit 03/30/2018 Patient Education: Patient [...] disease without esophagitis Discussion: Continue omeprazole Discussed senior care use of PPIs and risk but patient has tried H2 Blockers and has breakthrough symptoms Start chewable MV daily ICD-9 : 530.81 ICD-10 : K21.9 03/19/2017 Appointment: Milena Cruz WPtel: [address] [place], [place] [id number] MEDICATION REVIEW 03/19/2017 Patient Education: Patient Medication [...] if any occur 04/17/2016 Appointment: Delilah Jiang [address] [facility] Annual Well Visit 04/17/2016 Patient Education: Patient Medication Summary Completed 04/17/2016 Appointment: Liz Bolaños WPtel: [address] [place], [place] [phone] ACUTE ILLNESS 04/12/2015 Visit Plan: Will return for fasting labs - CBC, CMP, TSH, Free T4, Lipid Panel Start Shoulder Stretches and Bilateral ROM exercises Ibuprofen 800 mg PO bid Recommended follow-up with Nicole Mayer 01/18/2015 Appointment: Liz Bolaños WPtel: [address] [place], [place] [id number] 01/17 appt confirmed cn Annual Well Visit 2014 Patient Education: Patient Medication Summary Completed 01/18/2015 Appointment: Milena Cruz WPtel: [address] [place], [place] [phone] UA 02/07/2014 Patient Education: Patient Medication Summary Completed 02/07/2014 Appointment: Milena Cruz WPtel: [address] [place], [place] [phone] INJECTION 01/19/2014 Patient Education: Patient Medication Summary Completed 01/19/2014 Appointment: Liz Bolaños WPtel: [address] [place], [place] [phone] ACUTE ILLNESS 01/04/2014 Appointment: Milena Cruz WPtel: [address] [place], [place] [phone] UA 01/03/2014 Patient Education: Patient Medication Summary Completed 01/03/2014 Appointment: Milena Cruz WPtel: [address] [place], [place] [phone] UA 11/25/2013 Patient Education: Patient Medication Summary Completed 11/25/2013 Visit Plan: Proceed with EGD Continue Za ntac but increase to BID Seeing podiatry for feet but will try Voltaren gel 04/18/2013 Appointment: Milena Cruz WPtel: [address] [place] [address] ACUTE ILLNESS 04/18/2013 Patient Education: Patient Medication Summary Completed 04/18/2013 Appointment: Milena Cruztel: [address] [place] [address] FOLLOW UP 01/25/2013 Visit Plan: Start daily Calcium with Vit D 500mg and fish oil 1gram daily Zyrtec routinely and add flonase Add Zantac 300mg q HS If dysphagia continues then will need EGD Check fasting lab 10/26/2012 Appointment: Milena Cruz WPtel: [address] [place] [address] Annual Well Visit 10/26/2012 Patient Education: Patient Medication Summary Completed 10/26/2012 Visit Plan: Check fasting lab 02/02/2012 Appointment: Milena Cruz WPtel: [address] [place] [address] PAP 02/02/2012 Patient Education: Patient Medication Summary Completed 02/02/2012 Visit Plan: Vestibular exercises Meclizi ne 25mg po TID Nasonex BID 08/28/2011 Appointment: Milena Cruztel: [address] [place] [address] ACUTE ILLNESS 08/28/2011 Patient Education: Patient Medication Summary Completed 08/28/2011 Appointment: Milena Cruztel: [address] [place] [address] BP CHECK 01/07/2011 Patient Education: Patient Medication Summary Completed 01/07/2011 Visit Plan: OMT done to thoracics Trigge r point injection as above Arthrotec 75mg po BID Pt will call in 5 days on how neck doing Pt will return at later date for mole removal to left axilla 10/09/2010 Appointment: Milena Cruztel: [address] [place] [address] ACUTE ILLNESS 10/09/2010 Patient Education: Patient Medication Summary Completed 10/09/2010 Appointment: [facility]Stephanie [facility]el[facility] [phone] [id number] [facility] 11/07/2009 Patient Education: Patient Medication Summary Completed 11/07/2009 Referral: Mil[facility] Cruz [facility]el[facility] [phone] [facility] 04/18 patient will schedule appt Initiated [...]
--- OUTSIDE RECORDS SUMMARY | 2019-10-15 03:33 | XMS REPORT | CCD ---
Author Author Stefanie Cruz D.O. Organization MILENA CRUZ DO [facility] Address [address] [place] [address] Phone Care Team Providers Care Package Car Driver Name Role Phone Milena Cruz D.O., PP Unavailable CCM Unavailable Summary Purpose Interface Exchange Insurance Providers Payer name Policy type / Coverage type Covered alliance party ID Effective Begin Date Effective End Date Blue Cross Blue Shield Blue Cross/Blue Shield [id number] 2018 Unknown Family History Family History data not found Social History Social History Element Codes Description Effective Dates Marital status Unknown 08/28/[address]: [id number] Never smoker 08/28/2011 Allergies, Adverse Reactions, Alerts [...] Fill Instructions estradiol 1 mg tablet RxNorm: 974708 1 Tablet(s) Oral QD 09/07/2019 No Stop Date Active fluticasone propionate 50 mcg/actuation nasal spray,suspensi on RxNorm: 8422090 2 [place] Nasal every night at bedtime 09/07/2019 12/05/2019 Active omeprazole 40 mg capsule,delayed release RxNorm: 560253 TAKE ONE CAPSULE BY MOUTH DAILY 04/05/2019 06/03/2019 Inactive omeprazole 40 mg capsule,delayed release RxNorm: 196426 TAKE ONE CAPSULE BY MOUTH DAILY 01/03/2019 02/01/2019 Inactive Celebrex 200 mg capsule RxNorm: 336806 TAKE ONE CAPSULE BY MOUTH TWICE A DAY NEEDED 10/26/2018 11/24/2018 Inactive fluticasone 50 mcg/actuation nasal spray,suspension RxNorm: 3112359 2 [place] NASAL QHS 10/18/2018 01/15/2019 Inactive omeprazole 40 mg capsule,delayed release RxNorm: 309648 TAKE ONE CAPSULE BY MOUTH DAILY 10/01/2018 10/30/2018 Inactive Celebrex 200 mg capsule RxNorm: 687257 TAKE ONE CAPSULE BY MOUTH TWICE A DAY NEEDED 09/27/2018 10/25/2018 Inactive Medrol (Driss) 4 mg tablets in a dose pack RxNorm: 339453 Tablet(s) PO as directed 09/02/2018 09/06/2019 Inactive cyclobenzaprine 10 mg tablet RxNorm: 931265 1/2-1 Table t(s) PO TID as needed for muscle spasm 09/01/2018 No Stop Date Active Celebrex 200 mg capsule RxNorm: 666522 1 Capsule(s) PO BID for pain 09/01/2018 09/26/2018 Inactive Zithromax Z-Driss 250 mg tablet RxNorm: 805473 Tablet(s) take as directed PO 08/16/2018 08/31/2018 Inactive Medrol (Driss) 4 mg tablets in a dose pack RxNorm: 141546 Tablet(s) take as directed PO 08/16/2018 08/31/2018 Inactive Bactrim DS 800 mg-160 mg tablet RxNorm: 694774 1 Tablet(s) PO BID 1 08/28/2017 06/27/2018 Inactive Bactrim DS 800 mg-160 mg tablet RxNorm: 797053 1 Tablet(s) PO BID 1 08/28/2017 07/04/2018 Inactive Macrobid 100 mg capsule RxNorm: 428122 1 Capsule(s) PO BID 06/23/20 18 06/22/2018 Inactive Macrobid 100 mg capsule RxNorm: 911921 1 Capsule(s) PO BID 06/23/20 18 06/27/2018 Inactive fluticasone 50 mcg/actuation nasal spray,suspension RxNorm: 8760129 SPRAY TWO SPRAYS IN EACH NOSTRIL ONCE DAILY EVERY NIGHT AT BEDTIME 04/13/201804/2018 Inactive omeprazole 40 mg capsule,delayed release RxNorm: 293029 1 Capsu le(s) PO QD 04/06/2018 09/30/2018 Inactive fluticasone 50 mcg/actuation nasal spray,suspension RxNorm: 2421519 2 [place] NASAL QHS 09/28/2017 09/27/2017 Inactive omeprazole 40 mg capsule,delayed release RxNorm: 080456 1 Capsu le(s) PO QD 03/19/2017 04/06/2018 Inactive Flonase Allergy Relief 50 mcg/actuation nasal spray,suspensi on RxNorm: 9208620 2 [place] NASAL QHS to each nostril 02/23/2017 09/28/2017 Inactive Flonase Allergy Relief 50 mcg/actuation nasal spray,suspensi on RxNorm: 1434139 2 [place] NASAL QHS to each nostril 06/11/2016 02/23/2017 Inactive phentermine 37.5 mg tablet RxNorm: 936664 1 Tablet(s) PO QD 016 05/16/2016 Inactive Flonase 50 mcg/actuation nasal spray,suspension RxNorm: 1797 933 2 [place] NASAL QHS 12/24/2015 06/11/2016 Inactive [SAVINGS FOR UNI NSURED PATIENTS -- BIN:[id number], PCN: ASPROD1, Group: [id number], ID# [id number], Process claim through Vuze, for questions: . THIS IS NOT INSURANCE.] Flonase 50 mcg/actuation nasal spray,suspension RxNorm: 8963 23 2 [place] NASAL QHS 04/25/2015 12/24/2015 Inactive [SAVINGS FOR UNI NSURED PATIENTS -- BIN:[id number], PCN: ASPROD1, Group: [id number], ID# [id number], Process claim through MedImpact, for questions: . THIS IS NOT INSURANCE.] ibuprofen 800 mg tablet RxNorm: 947810 1 Tablet(s) PO BID 03/26/2015 04/24/2015 Inactive ibuprofen 800 mg tablet RxNorm: 852078 1 Tablet(s) PO BID 02/19/2015 03/26/2015 Inactive ibuprofen 800 mg tablet RxNorm: 359863 1 Tablet(s) PO BID 01/18/2015 02/19/2015 Inactive Flonase 50 mcg/actuation nasal spray,suspension RxNorm: 8963 23 2 [place] NASAL QHS 08/25/2014 04/24/2015 Inactive [SAVINGS FOR UNI NSURED PATIENTS -- BIN:[id number], PCN: ASPROD1, Group: [id number], ID# [id number], Process claim through [employer]Imp[employer], for questions: . THIS IS NOT INSURANCE.] Flonase 50 mcg/actuation nasal spray,suspension RxNorm: 8963 23 2 [place] NASAL QHS 05/29/2014 08/24/2014 Inactive [SAVINGS FOR UNI NSURED PATIENTS -- BIN:016266, PCN: ASPROD1, Group: [id number], ID# [id number], Process claim through MedImp[employer], for questions: . THIS IS NOT INSURANCE.] Macrobid 100 mg capsule RxNorm: 848103 1 Capsule(s) PO BID 01/04/20 14 01/09/2014 Inactive [SAVINGS FOR UNINSURED PATIE NTS -- BIN:[id number], PCN: ASPROD1, Group: [id number], ID# [id number], Process claim through MedImp[employer], for questions: . THIS IS NOT INSURANCE.] Macrobid 100 mg capsule RxNorm: 717141 1 Capsule(s) PO BID 01/04/20 14 01/02/2014 Inactive Flonase 50 mcg/actuation nasal spray,suspension RxNorm: 8963 23 2 [place] NASAL QHS 10/13/2013 05/29/2014 Inactive Zantac 300 mg tablet RxNorm: 130760 Tablet(s) PO TAKE O NE TABLET BY MOUTH AT BEDTIME 03/28/2013 03/18/2017 Inactive Zantac 300 mg tablet RxNorm: 557195 1 Tablet(s) PO QHS 10/26/2012 Inactive flax seed oil RxNorm: 1 PO QD No Start Date Active Fish Oil 1,000 mg capsule RxNorm: 1 Capsule(s) PO QD No Start Date Active Zyrtec 10 mg tablet RxNorm: 2571641 1 Tablet(s) PO QD No Start Date Active Medrol (Driss) 4 mg tablets in a dose pack RxNorm: 132317 Tablet(s) PO as directed No Start Date 09/01/2018 Inactive omeprazole 40 mg capsule,delayed release RxNorm: 226334 1 Capsu le(s) PO QD No Start Date 03/18/2017 Inactive Voltaren 1 % Topical Gel RxNorm: 508188 1 Gram(s) TOP QID No Start Date 03/18/2017 Inactive Flonase 50 mcg/actuation nasal spray,suspension RxNorm: 8963 23 2 [place] NASAL QHS No Start Date 10/13/2013 Inactive Nexium 40 mg capsule,delayed release RxNorm: 662871 1 Capsule(s ) PO QD No Start Date 03/18/2017 Inactive Medication Administered No Medication Administered data Immunizations Vaccine Codes Date Status Tetanus, Diptheria, Pertussis CVX: 115 01/19/2014 Results No Results data Procedures Procedure Codes Date THER/PROPH/DIAG INJ SC/IM CPT-4: 21700 09/01/2018 KETOROLAC TROMETHAMINE INJ CPT-4: J1885 09/01/2018 URINALYSIS NONAUTO W/O SCOPE CPT-4: 89502 06/21/2018 URINE CULTURE/ COLONY COUNT CPT-4: 02534 06/21/2018 URINE CULTURE/ COLONY COUNT CPT-4: 69433 02/07/2014 URINALYSIS NONAUTO W/O SCOPE CPT-4: 14684 02/07/2014 TDAP VACCINE 7 YRS/> IM CPT-4: 96888 01/19/2014 IMMUNIZATION ADMIN CPT-4: 87392 01/19/2014 URINE CULTURE/ COLONY COUNT CPT-4: 74716 01/03/2014 URINALYSIS NONAUTO W/O SCOPE CPT-4: 90993 01/03/2014 URINE CULTURE/ COLONY COUNT CPT-4: 29435 11/25/2013 INJ TRIGGER POINT 1/2 MUSCL CPT-4: 13121 10/09/2010 TRIAMCINOLONE ACET INJ NOS CPT-4: J3301 10/09/2010 METHYLPREDNISOLONE 40 MG INJ CPT-4: J1030 10/09/2010 Vital Signs Date Vital 09/07/2019 Blood Pressure 1: 136/94 Code: 8480-6 BMI: 32.2 Code: 36266-6 Heart Rate 1: 84 bpm Height: 5'2" Respiratory Rate: 20 bpm SpO2: 98% Tempera ture: 36.8 (C) / 98.2 (F) Weight: 173 lbs 09/01/2018 BMI: 32.0 Code: 36106-5 Heart Rate 1: 76 bpm Height: 5 '2" Respiratory Rate: 20 bpm Temperature: 36.9 (C) / 98.4 (F) Weight: 172 lbs 08/16/2018 Blood Pressure 1: 130/80 Code: 8480-6 Heart Rate 1: 91 bpm Respiratory Rate: 18 bpm SpO2: 97% Temperature: 36.7 (C) / 98.1 (F) We ight: 169 lbs 03/30/2018 Blood Pressure 1: 136/82 Code: 8480-6 BMI: 30.3 Code: 40030-6 Heart Rate 1: 72 bpm Height: 5'2" Respiratory Rate: 20 bpm SpO2: 98% Tempera ture: 36.8 (C) / 98.2 (F) Weight: 163 lbs 03/19/2017 Blood Pressure 1: 132/82 Code: 8480-6 BMI: 30.2 Code: 63245-3 Heart Rate 1: 72 bpm Height: 5'2" Respiratory Rate: 20 bpm Temperature: 36 .6 (C) / 97.9 (F) Weight: 165 lbs 04/17/2016 Blood Pressure 1: 124/82 Code: 8480-6 BMI: 29.6 Code: 63053-4 Heart Rate 1: 82 bpm Height: 5'2" Respiratory Rate: 22 bpm SpO2: 98% Tempera ture: 37.0 (C) / 98.6 (F) Weight: 162 lbs 01/18/2015 Blood Pressure 1: 118/78 Code: 8480-6 BMI: 27.8 Code: 39464-1 Heart Rate 1: 78 bpm Height: 5'2" Respiratory Rate: 20 bpm Temperature: 36 .3 (C) / 97.3 (F) Weight: 152 lbs 04/18/2013 Blood Pressure 1: 110/62 Code: 8480-6 BMI: 26.2 Code: 00375-9 Heart Rate 1: 66 bpm Height: 5'2" Respiratory Rate: 22 bpm Temperature: 36 .3 (C) / 97.4 (F) Weight: 143 lbs 10/26/2012 Blood Pressure 1: 124/78 Code: 8480-6 BMI: 26.2 Code: 50220-9 Heart Rate 1: 76 bpm Height: 5'3" Respiratory Rate: 20 bpm Temperature: 36 .6 (C) / 97.9 (F) Weight: 148 lbs 02/02/2012 Blood Pressure 1: 122/80 Code: 8480-6 BMI: 26.2 Code: 07438-1 Heart Rate 1: 72 bpm Height: 5'3" Respiratory Rate: 20 bpm Temperature: 36 .7 (C) / 98.0 (F) Weight: 148 lbs 08/28/2011 Blood Pressure 1: 114/60 Code: 8480-6 BMI: 24.8 Code: 37246-0 Heart Rate 1: 72 bpm Height: 5'3" Respiratory Rate: 20 bpm Temperature: 36 .5 (C) / 97.7 (F) Weight: 140 lbs 01/07/2011 Blood Pressure 1: 120/74 Code: 8480-6 BMI: 27.1 Code: 74800-7 Height: 5'2" Weight: 148 lbs 10/09/2010 Blood [...] arms Encounters Encounter Performer Location Codes Date ([id number]) PREV VISIT EST AGE 40-64 Diagnosis: 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, 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] Diagnosis: Encounter for general adult medical examination without abnormal findings[ICD10: Z00.00] Diagnosis: Elevated blood pressure reading[ICD10: R03.0] Diagnosis: Screening for malignant neoplasm of breast[ICD10: Z12.39] Diagnosis: Tinnitus[ICD10: H93.19] Angeli [place] [employer] CPT-4: 21646 09/07/2019 ([id number]) OFFICE/OUTPATIENT VISIT EST Diagnosis: Low back pain[ICD10: M54.5] Diagnosis: Radiculopathy, lumbar region[ICD10: M54.16] Milena [place] CPT-4: 49090 09/01/2018 ([id number]) OFFICE/OUTPATIENT VISIT EST Diagnosis: Acute upper respiratory infection, unspecified[ICD10: J06.9] Angeli CRUZ [employer] CPT-4: 38532 08/16/2018 ([id number]) NURSE/OUTPATIENT VISIT EST Diagnosis: Urinary tract infection, site not specified[ICD10: N39.0] Diagnosis: Hematuria, unspecified[ICD10: R31.9] Milena [place] CPT-4: 24861 06/21/2018 ([id number]) PREV VISIT EST AGE 40-64 Diagnosis: Encounter for general adult medical examination without abnormal findings[ICD10: Z00.00] Diagnosis: Gastro-esophageal reflux disease without esophagitis[ICD10: K21.9] Milena [place] SAUNDRA [employer] CPT-4: 27525 03/30/2018 ([id number]) OFFICE/OUTPATIENT VISIT EST Diagnosis: Gastro-esophageal reflux disease without esophagitis[ICD10: K21.9] Diagnosis: Cervicalgia[ICD10: M54.2] Diagnosis: 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 CPT - 4: 92610 03/19/2017 ([id number]) PREV VISIT EST AGE 40-64 Diagnosis: Encounter for general adult medical examination without abnormal findings[ICD10: Z00.00] Diagnosis: Abnormal weight gain[ICD10: R63.5] Diagnosis: Body mass index (BMI) 29.0-29.9, adult[ICD10: Z68.29] Delilah CRUZ DO [facility] CPT-4: 53585 04/17/2016 ([id number]) PREV VISIT EST AGE 40-64 Diagnosis: ROUTINE MEDICAL EXAM[ICD9: V70.0] Diagnosis: Shoulder pain, bilateral[ICD9: 719.41] Liz VanCesarre MILENA CRUZ DO [facility] CPT-4: 70387 01/18/2015 ([id number]) OFFICE/OUTPATIENT VISIT EST Diagnosis: URINARY TRACT INFECTION[ICD9: 599.0] Milena CRUZ DO [facility] CPT-4: 67104 02/07/2014 ([id number]) OFFICE/OUTPATIENT VISIT EST Diagnosis: VACCINE FOR TDAP[ICD10: Z23] Milena CRUZ DO [facility] CPT-4: 49372 01/19/2014 ([id number]) OFFICE/OUTPATIENT VISIT EST Diagnosis: URINARY TRACT INFECTION[ICD9: 599.0] Milena CRUZ DO [facility] CPT-4: 93755 01/03/2014 ([id number]) OFFICE/OUTPATIENT VISIT EST Diagnosis: Flank pain[ICD9: 789.00] Milena Abellizetgianna PAYANMILENA Maddison [facility] CPT-4: 21465 11/25/2013 ([id number]) OFFICE/OUTPATIENT VISIT EST Diagnosis: DYSPHAGIA, NOS[ICD9: 787.20] Diagnosis: Foot pain[ICD9: 729.5] Milena Torres DO [facility] CPT-4: 17422 04/18/2013 ([id number]) PREV VISIT EST AGE 40-64 Diagnosis: ROUTINE MEDICAL EXAM[ICD9: V70.0] Milena Moses S. ABELNDGIANNA DO [facility] CPT-4: 50960 10/26/2012 ([id number]) PREV VISIT EST AGE 40-64 Diagnosis: ROUTINE MEDICAL EXAM[ICD9: V70.0] Milena Moses SStephanie BOBONDER [facility] CPT-4: 93363 02/02/2012 OFFICE/OUTPATIENT VISIT EST Diagnosis: SINUSITIS, ACUTE[ICD9: 461.9] Diagnosis: Benign positional vertigo[ICD9: 386.11] Milena CRUZ [employer] CPT-4: 10106 08/28/2011 ([id number]) OFFICE/OUTPATIENT VISIT EST Milena MC SStephanie BOBONDGIANNA [employer] CPT-4: 46966 10/09/2010 Plan of Care Planned Activity Notes Codes Status Date Visit Diagnosis Plan: Screening for malignant neoplasm of breast Discussion: mammogram to be ordered. ICD-9 : V76.10 ICD-10 : Z12.39 09/07/2019 Visit Diagnosis Plan: Encounter for [facility] adult medical examination without abnormal findings Discussion: will update fasting labs [place] [facility] [place] [facility]. had colonoscopy in 2012 and not [...] : D17.0 09/07/2019 Appointment: BarreraGalo guoyson Chelsy [address] [place], [place] [phone] Annual Well Visit 09/07/2019 Care Plan: MAMMOGRAM SCREENING LOINC : 2 6347-5 Pending 09/07/2019 Appointment: BarreraAngeli guo [address] [place] [address] US RESCHEDULED 08/31/2019 Visit Diagnosis Plan: Low back pain Discussion: Stretc hes, Ice, topical muscle rub OMT done Toradol now Celebrex and flexeril Recheck in 1 week if persists or worsening ICD-9 : 724.2 ICD-10 : M54.5 09/01/2018 Appointment: Milena Cruz WPtel: [facility] [address] ACUTE ILLNESS 09/01/2018 Patient Education: cyclobenzaprine- Optimize[employer] Coupon [id number] [email or web address]/getResource/[email or web address] Completed 09/01/2018 Visit Diagnosis Plan: Acute upper respiratory infectio n, unspecified Discussion: zpack and medrol pack prescribed for symptom management. ok to continue with claritin daily. instructed to use humidifier at home in room to assist with drainage, especially with symptoms worse upon awakening. ICD-9 : 465.9 ICD-10 : J06.9 08/16/2018 Appointment: Angeli Rust [address] [place], [place] [id number] ACUTE ILLNESS 08/16/2018 Patient Education: Medrol (Driss)- [employer] Coupon [phone] [email or web address]/resources/getResource/[email or web address] Completed 08/16/2018 Appointment: Milena Cruz WPtel: [phone] [phone] [facility] 06/21/2018 Visit Diagnosis Plan: Encounter for [facility] adult medical examination without abnormal findings Discussion: Update fasting lab Discussed diet/exercise at length including weight bearing exercise At least 1000-1500mg calcium a day between diet and supplement in addition to Vitamin D Seeing MANAGEMENT ANALYST yearly ICD-9 : V70.9 ICD-10 : Z00.00 03/30/2018 Visit Diagnosis Plan: Gastro-esophageal reflux disease without esophagitis Discussion: Stable on omeprazole--patient has had esophageal stricture in past as well as overproduction in acid on pH manometry so has to stay with PPI and discussed repeat EGD if having worsening symptoms or dysphagia ICD-9 : 530.81 ICD-10 : K21.9 03/30/2018 Appointment: Milena Cruz WPtel: [address] [place], [place] [phone] Annual Well Visit 03/30/2018 Patient Education: Patient Medication Summary Completed 03/30/2018 Visit Diagnosis Plan: Gastro-esophageal reflux disease without esophagitis Discussion: Continue omeprazole Discussed prison use of PPIs and risk but patient has tried H2 Blockers and has breakthrough symptoms Start chewable MV daily ICD-9 : 530.81 ICD-10 : K21.9 03/19/2017 Visit Diagnosis Plan: Cervicalgia Discussion: Start PT ICD-9 : 723.1 ICD-10 : M54.2 03/19/2017 Visit Diagnosis Plan: 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, face and neck Discussion: Discussed observe vs removal ICD-9 : 214.1 ICD-10 : D17.0 03/19/2017 Appointment: Milena Cruz WPtel: [address] [place], [place] [id number] MEDICATION REVIEW 03/19/2017 Patient Education: Patient Medication [...] if any occur 04/17/2016 Appointment: Delilah Jiang [address] [facility] Annual Well Visit 04/17/2016 Patient Education: Patient Medication Summary Completed 04/17/2016 Appointment: Liz Bolaños WPtel: [address] [place], [place] [phone] ACUTE ILLNESS 04/12/2015 Visit Plan: Will return for fasting labs - CBC, CMP, TSH, Free T4, Lipid Panel Start Shoulder Stretches and Bilateral ROM exercises Ibuprofen 800 mg PO bid Recommended follow-up with Nicole Mayer 01/18/2015 Appointment: Liz Bolaños WPtel: [address] [place], [place] [phone] 01/17 appt confirmed cn Annual Well Visit 2014 Patient Education: Patient Medication Summary Completed 01/18/2015 Appointment: Milena Cruz WPtel: [address] [place], [place] [email or web address] UA 02/07/2014 Patient Education: Patient Medication Summary Completed 02/07/2014 Appointment: Milena Cruz WPtel: [address] [place], [place] [email or web address] INJECTION 01/19/2014 Patient Education: Patient Medication Summary Completed 01/19/2014 Appointment: Liz Bolaños WPtel: [address] [place], [place] [phone] ACUTE ILLNESS 01/04/2014 Appointment: Milena Cruz WPtel: [address] [place], [place] [phone] UA 01/03/2014 Patient Education: Patient Medication Summary Completed 01/03/2014 Appointment: Milena Cruz WPtel: [address] [place], [place] [phone] UA 11/25/2013 Patient Education: Patient Medication Summary Completed 11/25/2013 Visit Plan: Proceed with EGD Continue Za ntac but increase to BID Seeing podiatry for feet but will try Voltaren gel 04/18/2013 Appointment: Milena Cruz WPtel: [address] [place] [address] ACUTE ILLNESS 04/18/2013 Patient Education: Patient Medication Summary Completed 04/18/2013 Appointment: Milena Cruztel: [address] [place] [address] FOLLOW UP 01/25/2013 Visit Plan: Start daily Calcium with Vit D 500mg and fish oil 1gram daily Zyrtec routinely and add flonase Add Zantac 300mg q HS If dysphagia continues then will need EGD Check fasting lab 10/26/2012 Appointment: Milena Cruz WPtel: [address] [place] [address] Annual Well Visit 10/26/2012 Patient Education: Patient Medication Summary Completed 10/26/2012 Visit Plan: Check fasting lab 02/02/2012 Appointment: Milena Cruz WPtel: [address] [place] [address] PAP 02/02/2012 Patient Education: Patient Medication Summary Completed 02/02/2012 Visit Plan: Vestibular exercises Meclizi ne 25mg po TID Nasonex BID 08/28/2011 Appointment: Milena Cruztel: [address] [place] [address] ACUTE ILLNESS 08/28/2011 Patient Education: Patient Medication Summary Completed 08/28/2011 Appointment: Milena Cruztel: [address] [place] [address] BP CHECK 01/07/2011 Patient Education: Patient Medication Summary Completed 01/07/2011 Visit Plan: OMT done to thoracics Trigge r point injection as above Arthrotec 75mg po BID Pt will call in 5 days on how neck doing Pt will return at later date for mole removal to left axilla 10/09/2010 Appointment: Milena Cruztel: [address] [place] [address] ACUTE ILLNESS 10/09/2010 Patient Education: Patient Medication Summary Completed 10/09/2010 Appointment: [facility] [phone] [facility] [facility] 11/07/2009 Patient Education: Patient Medication Summary Completed 11/07/2009 Referral: [facility] [phone] [facility] 04/18 patient will schedule appt Initiated [...]
--- OUTSIDE RECORDS SUMMARY | 2019-10-15 03:33 | XMS REPORT | CCD ---
Author Author Stefanie Cruz D.O. Organization [facility] Address [address] [place] [address] Phone Care Team Providers Care Commutator Inspector Name Role Phone [facility] D.O., PP Unavailable CCM Unavailable Summary Purpose Interface Exchange Insurance Providers Payer name Policy type / Coverage type Covered constitution party ID Effective Begin Date Effective End Date Blue Cross Blue Shield Blue Cross/Bl ue Shield [id number] 2018 Un known Family History Family History data not found Social History Social History Element Codes Description Effective Dates Marital status Unknown M arried 08/28/[address]: [id number] Never smoker 08/28/2011 Allergies, Adverse Reactions, Alerts Substance Reaction Codes Entered Date Inactivated Date Status * NO KNOWN DRUG YARELIS RGIES Unknown 10/09/2010 No Inactive Date Active Past Medical History Illness Codes Condition Status Onset Date Resolved Date Low back pain ICD-9: 724.2 ICD-10: M54.5 Active 09/01/2018 Unknown Radiculopathy, lumba r region ICD-9: 724.4 ICD-10: M54.16 Active 09/01/2018 Unknown Acute upper respirat ory infection, unspecified ICD-9: 465.9 ICD-10: J06.9 Active 08/16/2018 Unknown Hematuria, unspecified ICD-9: 599.70 ICD-10: R31.9 Active 06/21/2018 Unknown Urinary tract infect ion, site not specified ICD-9: 599.0 ICD-10: N39.0 Active 06/21/2018 Unknown Encounter for genera l adult medical examination without abnormal findings ICD-9: V70.9 ICD-10: Z00.00 Active 04/16/2016 Unknown Gastro-esophageal re flux disease without esophagitis ICD-9: 530.81 ICD-10: K21.9 Active 03/19/2017 Unknown 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, face and neck ICD-9: 214.1 ICD-10: D17.0 Active 03/19/2017 Unknown Cervicalgia ICD-9: 723.1 ICD-10: M54.2 Active 03/19/2017 Unknown Abnormal weight gain ICD-9: 783.1 ICD-10: R63.5 Active 04/16/2016 Unknown Body mass index (BMI ) 29.0-29.9, adult ICD-9: V85.25 ICD-10: Z68.29 Active 04/16/2016 Unknown ROUTINE MEDICAL EXAM ICD-9: V70.0 Active 02/02/2012 Unknown Shoulder pain, bilat eral ICD-9: 719.41 Active Unknown VACCINE FOR TDAP ICD-9: V06.1 ICD-10: Z23 Active 01/19/2014 Unknown URINARY TRACT INFECTION ICD-9: 599.0 Active 01/03/2014 Unknown Flank pain ICD-9: 789.00 Active 11/25/2013 Unknow n DYSPHAGIA, NOS ICD-9: 787.20 Active 04/18/2013 Unknown Foot pain ICD-9: 729.5 Active 04/18/2013 Unknow n Benign positional ve rtigo ICD-9: 386.11 Active Unknown SINUSITIS, ACUTE ICD-9: 461.9 Active 08/28/2011 Unknown *Denies any medical problems Unknown Active 1 Unknown Neck pain ICD-9: 723.1 Active 10/09/2010 Unknow n SPASM OF MUSCLE ICD-9: 728.85 Active 10/09/2010 Unknown Thoracic back pain ICD- 9: 724.1 Active 10/09/2010 Unknown Thoracic radiculopathy ICD-9: 724.4 Active 10/09/2010 Unknown Problems Condition Codes Effectiv e Dates Condition Status Low back pain ICD-9: 724.2 ICD-10: M54.5 09/01/2018 Active Radiculopathy, lumba r region ICD-9: 724.4 ICD-10: M54.16 09/01/2018 Active Acute upper respirat ory infection, unspecified ICD-9: 465.9 ICD-10: J06.9 08/16/2018 Active Hematuria, unspecified ICD-9: 599.70 ICD-10: R31.9 06/21/2018 Active Urinary tract infect ion, site not specified ICD-9: 599.0 ICD-10: N39.0 06/21/2018 Active Encounter for genera l adult medical examination without abnormal findings ICD-9: V70.9 ICD-10: Z00.00 04/16/2016 Active Gastro-esophageal re flux disease without esophagitis ICD-9: 530.81 ICD-10: K21.9 03/19/2017 Active 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, face and neck ICD-9: 214.1 ICD-10: D17.0 03/19/2017 Active Cervicalgia ICD-9: 723.1 ICD-10: M54.2 03/19/2017 Active Abnormal weight gain ICD-9: 783.1 ICD-10: R63.5 04/16/2016 Active Body mass index (BMI ) 29.0-29.9, adult ICD-9: V85.25 ICD-10: Z68.29 04/16/2016 Active ROUTINE MEDICAL EXAM ICD-9: V70.0 02/02/2012 Active Shoulder pain, bilat eral ICD-9: 719.41 01/17/2015 Active VACCINE FOR TDAP ICD-9: V06.1 ICD-10: Z23 01/19/2014 Active URINARY TRACT INFECTION ICD-9: 599.0 01/03/2014 Active Flank pain ICD-9: 789.00 11/25/2013 Active DYSPHAGIA, NOS ICD-9: 787.20 04/18/2013 Active Foot pain ICD-9: 729.5 04/18/2013 Active Benign positional ve rtigo ICD-9: 386.11 08/28/2011 Active SINUSITIS, ACUTE ICD-9: 461.9 08/28/2011 Active *Denies any medical problems Unknown 10/09/2010 Activ e Neck pain ICD-9: 723.1 10/09/2010 Active SPASM OF MUSCLE ICD-9: 728.85 10/09/2010 Active Thoracic back pain ICD- 9: 724.1 10/09/2010 Active Thoracic radiculopathy ICD-9: 724.4 10/09/2010 Active Medications Medication Codes Instruc tions Start Date Stop Date Sta tus Fill Instructions omeprazole 40 mg cap jason,delayed release RxNorm: 227881 TAKE ONE CAPSULE BY M OUTH DAILY 04/05/2019 06/03/2019 Active omeprazole 40 mg cap jason,delayed release RxNorm: 404071 TAKE ONE CAPSULE BY M OUTH DAILY 01/03/2019 02/01/2019 Inactive Celebrex 200 mg capsule RxNorm: 913718 TAKE ONE CAPSULE BY MOUTH TWICE A DAY NEEDED 10/26/2018 11/24/2018 Inactive fluticasone 50 mcg/a ctuation nasal spray,suspension RxNorm: 5602499 2 [place] NASAL QHS 10/18/2018 01/15/2019 Inactive omeprazole 40 mg cap jason,delayed release RxNorm: 623824 TAKE ONE CAPSULE BY M OUTH DAILY 10/01/2018 10/30/2018 Inactive Celebrex 200 mg capsule RxNorm: 161782 TAKE ONE CAPSULE BY MOUTH TWICE A DAY NEEDED 09/27/2018 10/25/2018 Inactive Medrol (Driss) 4 mg ta blets in a dose pack RxNorm: 967464 Tablet(s) PO as direc margarette 09/02/2018 No Stop Date Active cyclobenzaprine 10 m g tablet RxNorm: 281297 1/2-1 Tablet(s) PO TI D as needed for muscle spasm 09/01/2018 No Stop Date Active Celebrex 200 mg capsule RxNorm: 504178 1 Capsule(s) PO BID for pain 09/01/2018 09/26/2018 Inactive Zithromax Z-Driss 250 mg tablet RxNorm: 227248 Tablet(s) take as dir ected PO 08/16/2018 08/31/2018 In active Medrol (Driss) 4 mg ta blets in a dose pack RxNorm: 631003 Tablet(s) take as dir ected PO 08/16/2018 08/31/2018 Inactive Bactrim DS 800 mg-16 0 mg tablet RxNorm: 088198 1 Tablet(s) PO BID 06/28/2018 06/27/2018 Inactive Bactrim DS 800 mg-16 0 mg tablet RxNorm: 561581 1 Tablet(s) PO BID 06/28/2018 07/04/2018 Inactive Macrobid 100 mg capsule RxNorm: 764738 1 Capsule(s) PO BID 06/23/2018 06/22/2018 Inactive Macrobid 100 mg capsule RxNorm: 715439 1 Capsule(s) PO BID 06/23/2018 06/27/2018 Inactive fluticasone 50 mcg/a ctuation nasal spray,suspension RxNorm: 8545427 SPRAY TWO SPRAYS IN EACH NOSTRIL ONCE DAILY EVERY NIGHT AT BEDTIME 04/13/2018 06/11/2018 Inactive omeprazole 40 mg cap jason,delayed release RxNorm: 863263 1 Capsule(s) PO QD 04/06/2018 09/30/2018 In active fluticasone 50 mcg/a ctuation nasal spray,suspension RxNorm: 5114910 2 [place] NASAL QHS 09/28/2017 09/27/2017 Inactive omeprazole 40 mg cap jason,delayed release RxNorm: 094085 1 Capsule(s) PO QD 03/19/2017 04/06/2018 In active Flonase Allergy Reli ef 50 mcg/actuation nasal spray,suspension RxNorm: 1186161 2 [place] NASAL QHS to each nostril 09/28/2017 Inactive Flonase Allergy Reli ef 50 mcg/actuation nasal spray,suspension RxNorm: 6634007 2 [place] NASAL QHS to each nostril 02/23/2017 Inactive phentermine 37.5 mg tablet RxNorm: 950014 1 Tablet(s) PO QD 04/17/2016 05/16/2016 Inactive Flonase 50 mcg/actua tion nasal spray,suspension RxNorm: 7869016 2 [place] NASAL QHS 12/24/2015 06/11/2016 In active [SAVINGS FOR UNINSURED PATIENTS -- BIN:0 [id number], PCN: ASPROD1, Group: [id number], ID# [id number], Process claim through [employer], for questions: . THIS IS NOT INSURANCE.] Flonase 50 mcg/actua tion nasal spray,suspension RxNorm: 167315 2 [place] NASAL QHS 04/25/2015 12/24/2015 In active [SAVINGS FOR UNINSURED PATIENTS -- BIN:0 75736, PCN: ASPROD1, Group: [id number], ID# [id number], Process claim through [employer], for questions: . THIS IS NOT INSURANCE.] ibuprofen 800 mg tablet RxNorm: 857992 1 Tablet(s) PO BID 03/26/2015 04/24/2015 Inactive ibuprofen 800 mg tablet RxNorm: 276889 1 Tablet(s) PO BID 02/19/2015 03/26/2015 Inactive ibuprofen 800 mg tablet RxNorm: 693416 1 Tablet(s) PO BID 01/18/2015 02/19/2015 Inactive Flonase 50 mcg/actua tion nasal spray,suspension RxNorm: 588848 2 [place] NASAL QHS 08/25/2014 04/24/2015 In active [SAVINGS FOR UNINSURED PATIENTS -- BIN:0 17446, PCN: ASPROD1, Group: [id number], ID# [id number], Process claim through [employer], for questions: . THIS IS NOT INSURANCE.] Flonase 50 mcg/actua tion nasal spray,suspension RxNorm: 429709 2 [place] NASAL QHS 05/29/2014 08/24/2014 In active [SAVINGS FOR UNINSURED PATIENTS -- BIN:0 08189, PCN: ASPROD1, Group: [id number], ID# [id number], Process claim through [employer], for questions: . THIS IS NOT INSURANCE.] Macrobid 100 mg capsule RxNorm: 208153 1 Capsule(s) PO BID 01/03/2014 01/09/2014 Inactive [SAVINGS FOR UNINSURED PATIENTS -- BIN:0 43953, PCN: ASPROD1, Group: [id number], ID# [id number], Process claim through [employer], for questions: . THIS IS NOT INSURANCE.] Macrobid 100 mg capsule RxNorm: 494231 1 Capsule(s) PO BID 01/03/2014 01/02/2014 Inactive Flonase 50 mcg/actua tion nasal spray,suspension RxNorm: 069202 2 [place] NASAL QHS 10/13/2013 05/29/2014 In active Zantac 300 mg tablet RxNorm: 918389 Tablet(s) PO TAKE ONE TABLET BY MOUTH AT BEDTIME 03/28/2013 03/18/2017 Inactive Zantac 300 mg tablet RxNorm: 208863 1 Tablet(s) PO QHS 10/26/2012 03/27/2013 Inactive flax seed oil RxNorm: 1 PO QD No Start Date Active Fish Oil 1,000 mg ca psule RxNorm: 1 Capsule(s) PO QD No Start Date Active Zyrtec 10 mg tablet RxNorm: 9976610 1 Tablet(s) PO QD No Start Date Active Medrol (Driss) 4 mg ta blets in a dose pack RxNorm: 220463 Tablet(s) PO as direc margarette No Start Date 09/01/2018 Inactive omeprazole 40 mg cap jason,delayed release RxNorm: 741453 1 Capsule(s) PO QD No Start Date 03/18/2017 Inactive Voltaren 1 % Topical Gel RxNorm: 232635 1 Gram(s) TOP QID No Start Date 03/18/2017 Inactive Flonase 50 mcg/actua tion nasal spray,suspension RxNorm: 187229 2 [place] NASAL QHS No Start Date 10/13/2013 Inactive Nexium 40 mg capsule ,delayed release RxNorm: 834269 1 Capsule(s) PO QD No Start Date 03/18/2017 Inactive Medication Administered No Medication Administered data Immunizations Vaccine Codes Date Status Tetanus, Diptheria, Pertussis CVX: 115 01/19/2014 completed Assessments Condition Codes Effectiv e Dates Radiculopathy, lumbar region ICD-10: M54.16 ICD-9: 724.4 09/01/2018 Low back pain ICD-10: M54.5 ICD-9: 724.2 09/01/2018 Acute upper respiratory infection, unspecified ICD-10: J06.9 ICD-9: 465.9 08/16/2018 Hematuria, unspecified ICD-10: R31.9 ICD-9: 599.70 06/21/2018 Urinary tract infection, site not specified ICD-10: N39.0 ICD-9: 599.0 06/21/2018 Encounter for general adult medical exam ination without abnormal findings ICD-10: Z00.00 ICD-9: V70.9 03/30/2018 Gastro-esophageal reflux disease without esophagitis ICD-10: K21.9 ICD-9: 530.81 03/30/2018 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, face and neck ICD-10: D17.0 ICD-9: 214.1 03/19/2017 Cervicalgia ICD-10: M54.2 ICD-9: 723.1 03/19/2017 Body mass index (BMI) 29.0-29.9, adult ICD-10: Z68.29 ICD-9: V85.25 04/17/2016 Abnormal weight gain ICD-10: R63.5 ICD-9: 783.1 04/17/2016 ROUTINE MEDICAL EXAM ICD-9: V70.0 01/18/2015 Shoulder pain, bilateral ICD-9: 719.41 01/18/2015 URINARY TRACT INFECTION ICD-9: 599.0 02/07/2014 VACCINE FOR TDAP ICD-10: Z23 ICD-9: V06.1 01/19/2014 Flank pain ICD-9: 789.00 11/25/2013 DYSPHAGIA, NOS ICD-9: 787.20 04/18/2013 Foot pain ICD-9: 729.5 0 04/18/2013 Benign positional vertigo ICD-9: 386.11 08/28/2011 SINUSITIS, ACUTE ICD-9: 461.9 08/28/2011 Thoracic back pain ICD-9: 724.1 10/09/2010 Neck pain ICD-9: 723.1 0 10/09/2010 Thoracic radiculopathy ICD-9: 724.4 10/09/2010 SPASM OF MUSCLE ICD-9: 728.85 10/09/2010 Reason For Visit Reason For Visit Effective Dates Notes back pain 09/01/2018 postnasal drip 08/16/2018 lab draw 06/21/2018 here to give UA for UTI type symptoms Annual Checkup 03/30/2018 Wellness Physical gastroesophageal reflux 03/19/2017 Annual Checkup 04/17/2016 Wellness-Patient is due for lab workLast Nomal Mammogram shoulder pain 01/18/2015 Patient due for labsLast normal Mammogram summer 2013 painful urination 02/07/2014 injection(s) 01/19/2014 TDAP painful urination 01/03/2014 polyuria 11/25/2013 dysphagia 04/18/2013 Has trouble swallowing pills. possible spasms Annual Checkup 10/26/2012 Wellness Physical Annual Checkup 02/02/2012 headache 08/28/2011 had fall Jul 28 and hit back of head, woke up two days ago and felt drunk/couldn't walk so concerned that it may be related neck pain 10/09/2010 to both arms Results No Results data Review of Systems System Result Effective Dates Musculoskeletal No muscle weakness 09/01/2018 Musculoskeletal No myalgias 09/01/2018 Musculoskeletal No stiffness 09/01/2018 Musculoskeletal No swelling 09/01/2018 Musculoskeletal low back pain 09/01/2018 Neurologic paresthesia 0 09/01/2018 Ears/Nose/Throat/Neck No sore throat 08/16/2018 Ears/Nose/Throat/Neck sinus congestion 08/16/2018 Ears/Nose/Throat/Neck sinusitis 08/16/2018 Ears/Nose/Throat/Neck No otalgia 08/16/2018 Ears/Nose/Throat/Neck nasal discharge 08/16/2018 Ears/Nose/Throat/Neck headache 08/16/2018 Constitutional No fatigue 08/16/2018 Constitutional No fever 08/16/2018 Constitutional No chills 08/16/2018 Musculoskeletal No myalgias 08/16/2018 Respiratory cough 2018 Respiratory No chest congestion 08/16/2018 Respiratory No chest tightness 08/16/2018 Respiratory No dyspnea 0 08/16/2018 Gastrointestinal No abdominal pain 08/16/2018 Gastrointestinal No constipation 08/16/2018 Gastrointestinal No diarrhea 08/16/2018 Gastrointestinal No vomiting 08/16/2018 Gastrointestinal No nausea 08/16/2018 Dermatologic No rash Constitutional No night sweats 03/30/2018 Constitutional No fatigue 03/30/2018 Constitutional No fever 03/30/2018 Constitutional No insomnia 03/30/2018 Constitutional No weight loss 03/30/2018 Eyes No eye pain 018 Eyes No photophobia 03/04 Eyes No vision change Eyes No visual disturbance 03/30/2018 Ears/Nose/Throat/Neck No hearing loss 03/30/2018 Ears/Nose/Throat/Neck No nasal discharge 03/30/2018 Ears/Nose/Throat/Neck No sinus congestion 03/30/2018 Ears/Nose/Throat/Neck No sore throat 03/30/2018 Cardiovascular No arrhythmia 03/30/2018 Cardiovascular No chest pain/pressure 03/30/2018 Cardiovascular No edema 03/30/2018 Cardiovascular No exercise intolerance 03/30/2018 Cardiovascular No orthopnea 03/30/2018 Cardiovascular No palpitations 03/30/2018 Respiratory No asthma Respiratory No cough Respiratory No dyspnea 0 03/30/2018 Respiratory No pleuritic pain 03/30/2018 Respiratory No productive sputum 03/30/2018 Respiratory No wheezing 03/30/2018 Gastrointestinal No hemorrhoids 03/30/2018 Gastrointestinal No hepatitis 03/30/2018 Gastrointestinal No abdominal pain 03/30/2018 Gastrointestinal No constipation 03/30/2018 Gastrointestinal No diarrhea 03/30/2018 Gastrointestinal No gastroesophageal reflu x 03/30/2018 Gastrointestinal No melena 03/30/2018 Gastrointestinal No nausea 03/30/2018 Gastrointestinal No vomiting 03/30/2018 Genitourinary/Nephrology No dysuria 03/30/2018 Genitourinary/Nephrology No nocturia 03/30/2018 Genitourinary/Nephrology No urinary incontinence 03/30/2018 Musculoskeletal No muscle weakness 03/30/2018 Musculoskeletal No myalgias 03/30/2018 Musculoskeletal No stiffness 03/30/2018 Musculoskeletal No swelling 03/30/2018 Dermatologic No rash Dermatologic No scar Neurologic No dizziness 03/30/2018 Neurologic No headache 0 03/30/2018 Neurologic No neck pain 03/30/2018 Neurologic No syncope Psychiatric No anxiety 0 03/30/2018 Psychiatric No depression 03/30/2018 Endocrine No goiter 03/04 Endocrine No hyperglycemia 03/30/2018 Endocrine No hypoglycemia 03/30/2018 Hematologic/Lymphatic No abnormal ec chymoses 03/30/2018 Hematologic/Lymphatic No petechiae 03/30/2018 Hematologic/Lymphatic No abnormal bl eeding and bruising 03/30/2018 Hematologic/Lymphatic No anemia 03/30/2018 Hematologic/Lymphatic No lymph node enlargement/mass 03/30/2018 Allergy/Immunology No food allergy 03/30/2018 Constitutional weight gain/obesity 03/30/2018 Gastrointestinal gastroesophageal reflux 03/19/2017 Musculoskeletal neck pain 03/19/2017 Dermatologic lipoma 03/03 Neurologic neck pain Constitutional No night sweats 04/17/2016 Constitutional No recent illness 04/17/2016 Constitutional No fatigue 04/17/2016 Constitutional No fever 04/17/2016 Constitutional No insomnia 04/17/2016 Constitutional No weight loss 04/17/2016 Constitutional weight gain/obesity 04/17/2016 Eyes No eye pain 016 Eyes No photophobia 04/03 Eyes No vision change Eyes No visual disturbance 04/17/2016 Ears/Nose/Throat/Neck No hearing loss 04/17/2016 Ears/Nose/Throat/Neck No nasal discharge 04/17/2016 Ears/Nose/Throat/Neck No sinus congestion 04/17/2016 Ears/Nose/Throat/Neck No sore throat 04/17/2016 Cardiovascular No arrhythmia 04/17/2016 Cardiovascular No chest pain/pressure 04/17/2016 Cardiovascular No edema 04/17/2016 Cardiovascular No exercise intolerance 04/17/2016 Cardiovascular No orthopnea 04/17/2016 Cardiovascular No palpitations 04/17/2016 Respiratory No asthma Respiratory No cough Respiratory No dyspnea 0 04/17/2016 Respiratory No pleuritic pain 04/17/2016 Respiratory No productive sputum 04/17/2016 Respiratory No wheezing 04/17/2016 Gastrointestinal No hemorrhoids 04/17/2016 Gastrointestinal No hepatitis 04/17/2016 Gastrointestinal No abdominal pain 04/17/2016 Gastrointestinal No constipation 04/17/2016 Gastrointestinal No diarrhea 04/17/2016 Gastrointestinal No gastroesophageal reflu x 04/17/2016 Gastrointestinal No melena 04/17/2016 Gastrointestinal No nausea 04/17/2016 Gastrointestinal No vomiting 04/17/2016 Genitourinary/Nephrology No dysuria 04/17/2016 Genitourinary/Nephrology No nocturia 04/17/2016 Genitourinary/Nephrology No urinary incontinence 04/17/2016 Musculoskeletal No stiffness 04/17/2016 Musculoskeletal No swelling 04/17/2016 Musculoskeletal No muscle weakness 04/17/2016 Musculoskeletal No myalgias 04/17/2016 Dermatologic No rash Dermatologic No scar Neurologic No dizziness 04/17/2016 Neurologic No headache 0 04/17/2016 Neurologic No neck pain 04/17/2016 Neurologic No syncope Psychiatric No anxiety 0 04/17/2016 Psychiatric No depression 04/17/2016 Endocrine No goiter 04/03 Endocrine No hyperglycemia 04/17/2016 Endocrine No hypoglycemia 04/17/2016 Hematologic/Lymphatic No abnormal ec chymoses 04/17/2016 Hematologic/Lymphatic No petechiae 04/17/2016 Hematologic/Lymphatic No abnormal bl eeding and bruising 04/17/2016 Hematologic/Lymphatic No anemia 04/17/2016 Hematologic/Lymphatic No lymph node enlargement/mass 04/17/2016 Allergy/Immunology No food allergy 04/17/2016 Gastrointestinal gastroesophageal reflux 01/18/2015 Dermatologic No rash Dermatologic No scar Musculoskeletal stiffness 01/18/2015 Musculoskeletal No swelling 01/18/2015 Musculoskeletal No muscle weakness 01/18/2015 Musculoskeletal No myalgias 01/18/2015 Musculoskeletal joint complaint 01/18/2015 Musculoskeletal shoulder pain 01/18/2015 Respiratory No asthma Respiratory No cough Respiratory No dyspnea 0 01/18/2015 Respiratory No pleuritic pain 01/18/2015 Respiratory No productive sputum 01/18/2015 Respiratory No wheezing 01/18/2015 Cardiovascular No arrhythmia 01/18/2015 Cardiovascular No chest pain/pressure 01/18/2015 Cardiovascular No edema 01/18/2015 Cardiovascular No exercise intolerance 01/18/2015 Cardiovascular No orthopnea 01/18/2015 Cardiovascular No palpitations 01/18/2015 Constitutional No night sweats 01/18/2015 Constitutional No recent illness 01/18/2015 Constitutional No fatigue 01/18/2015 Constitutional No fever 01/18/2015 Constitutional No insomnia 01/18/2015 Constitutional No weight loss 01/18/2015 Ears/Nose/Throat/Neck No hearing loss 01/18/2015 Ears/Nose/Throat/Neck No nasal discharge 01/18/2015 Ears/Nose/Throat/Neck No sinus congestion 01/18/2015 Ears/Nose/Throat/Neck No sore throat 01/18/2015 Ears/Nose/Throat/Neck cerumen 01/18/2015 Neurologic neck pain Neurologic paresthesia 0 01/18/2015 Musculoskeletal No bone pain 04/18/2013 Musculoskeletal joint complaint 04/18/2013 Gastrointestinal dysphagia 04/18/2013 Constitutional No night sweats 10/26/2012 Constitutional No fatigue 10/26/2012 Constitutional No fever 10/26/2012 Constitutional No insomnia 10/26/2012 Constitutional No weight loss 10/26/2012 Ears/Nose/Throat/Neck No hearing loss 10/26/2012 Ears/Nose/Throat/Neck No nasal discharge 10/26/2012 Ears/Nose/Throat/Neck No sinus congestion 10/26/2012 Ears/Nose/Throat/Neck No sore throat 10/26/2012 Cardiovascular No arrhythmia 10/26/2012 Cardiovascular No chest pain/pressure 10/26/2012 Cardiovascular No edema 10/26/2012 Cardiovascular No exercise intolerance 10/26/2012 Cardiovascular No orthopnea 10/26/2012 Cardiovascular No palpitations 10/26/2012 Respiratory No asthma Respiratory No cough Respiratory No dyspnea 0 10/26/2012 Respiratory No pleuritic pain 10/26/2012 Respiratory No productive sputum 10/26/2012 Respiratory No wheezing 10/26/2012 Gastrointestinal No hemorrhoids 10/26/2012 Gastrointestinal No hepatitis 10/26/2012 Gastrointestinal No abdominal pain 10/26/2012 Gastrointestinal No constipation 10/26/2012 Gastrointestinal No diarrhea 10/26/2012 Gastrointestinal No gastroesophageal reflu x 10/26/2012 Gastrointestinal No melena 10/26/2012 Gastrointestinal No nausea 10/26/2012 Gastrointestinal No vomiting 10/26/2012 Genitourinary/Nephrology No dysuria 10/26/2012 Genitourinary/Nephrology No nocturia 10/26/2012 Genitourinary/Nephrology No urinary incontinence 10/26/2012 Musculoskeletal No muscle weakness 10/26/2012 Musculoskeletal No myalgias 10/26/2012 Musculoskeletal No stiffness 10/26/2012 Musculoskeletal No swelling 10/26/2012 Dermatologic No rash Dermatologic No scar Neurologic No dizziness 10/26/2012 Neurologic No headache 0 10/26/2012 Neurologic No neck pain 10/26/2012 Neurologic No syncope Psychiatric No anxiety 0 10/26/2012 Psychiatric No depression 10/26/2012 Endocrine No goiter 10/02 Endocrine No hyperglycemia 10/26/2012 Endocrine No hypoglycemia 10/26/2012 Hematologic/Lymphatic No abnormal ec chymoses 10/26/2012 Hematologic/Lymphatic No petechiae 10/26/2012 Hematologic/Lymphatic No abnormal bl eeding and bruising 10/26/2012 Hematologic/Lymphatic No anemia 10/26/2012 Hematologic/Lymphatic No lymph node enlargement/mass 10/26/2012 Constitutional No night sweats 02/02/2012 Constitutional No fatigue 02/02/2012 Constitutional No fever 02/02/2012 Constitutional No insomnia 02/02/2012 Constitutional No weight loss 02/02/2012 Ears/Nose/Throat/Neck No hearing loss 02/02/2012 Ears/Nose/Throat/Neck No nasal discharge 02/02/2012 Ears/Nose/Throat/Neck No sinus congestion 02/02/2012 Ears/Nose/Throat/Neck No sore throat 02/02/2012 Cardiovascular No arrhythmia 02/02/2012 Cardiovascular No chest pain/pressure 02/02/2012 Cardiovascular No edema 02/02/2012 Cardiovascular No exercise intolerance 02/02/2012 Cardiovascular No orthopnea 02/02/2012 Cardiovascular No palpitations 02/02/2012 Respiratory No asthma Respiratory No pleuritic pain 02/02/2012 Respiratory No productive sputum 02/02/2012 Respiratory No cough 09/2011 Respiratory No dyspnea 0 02/02/2012 Respiratory No wheezing 02/02/2012 Gastrointestinal No hemorrhoids 02/02/2012 Gastrointestinal No hepatitis 02/02/2012 Gastrointestinal No abdominal pain 02/02/2012 Gastrointestinal No constipation 02/02/2012 Gastrointestinal No diarrhea 02/02/2012 Gastrointestinal No melena 02/02/2012 Gastrointestinal No nausea 02/02/2012 Gastrointestinal No vomiting 02/02/2012 Genitourinary/Nephrology No dysuria 02/02/2012 Genitourinary/Nephrology No nocturia 02/02/2012 Genitourinary/Nephrology No urinary incontinence 02/02/2012 Musculoskeletal No muscle weakness 02/02/2012 Musculoskeletal No myalgias 02/02/2012 Musculoskeletal No stiffness 02/02/2012 Musculoskeletal No swelling 02/02/2012 Dermatologic No rash 09/2011 Dermatologic No scar 09/2011 Neurologic No dizziness 02/02/2012 Neurologic No headache 0 02/02/2012 Neurologic No neck pain 02/02/2012 Neurologic No syncope Psychiatric No anxiety 0 02/02/2012 Psychiatric No depression 02/02/2012 Endocrine No goiter 0 09/2011 Endocrine No hyperglycemia 02/02/2012 Endocrine No hypoglycemia 02/02/2012 Hematologic/Lymphatic No abnormal ec chymoses 02/02/2012 Hematologic/Lymphatic No petechiae 02/02/2012 Hematologic/Lymphatic No abnormal bl eeding and bruising 02/02/2012 Hematologic/Lymphatic No anemia 02/02/2012 Hematologic/Lymphatic No lymph node enlargement/mass 02/02/2012 Gastrointestinal gastroesophageal reflux 02/02/2012 Ears/Nose/Throat/Neck nasal allergies 02/02/2012 Ears/Nose/Throat/Neck No hearing loss 08/28/2011 Ears/Nose/Throat/Neck No nasal discharge 08/28/2011 Ears/Nose/Throat/Neck sinus congestion 08/28/2011 Ears/Nose/Throat/Neck No sore throat 08/28/2011 Neurologic dizziness Musculoskeletal neck pain 10/09/2010 Neurologic No dizziness 10/09/2010 Neurologic No headache 0 10/09/2010 Neurologic No neck pain 10/09/2010 Neurologic No syncope Dermatologic mole change 10/09/2010 Physical Exam Exam Name System Name It em Name Status Result Effective Dates Notes Full Exam - General Constitutional general appearance Overall: well nourished 09/01/2018 None Full Exam - General Constitutional general appearance Overall: well developed 09/01/2018 None Full Exam - General Constitutional general appearance Overall: in no acute distress 09/01/2018 None Full Exam - General Neurologic mental status Overall: alert 9 None Full Exam - General Neurologic mental status Overall: oriented 09/01/2018 None Full Exam - General Psychiatric mood and affect Overall: normal mood and affect 09/01/2018 None Full Exam - General Musculoskeletal spine, ribs and pelvis Spine: tender @ lumbar spin e 09/01/2018 None Full Exam - General Musculoskeletal spine, ribs and pelvis Sacroiliac joints: tender left sacroiliac joint 09/01/2018 None Full Exam - General Constitutional general appearance Overall: well nourished 08/16/2018 None Full Exam - General Constitutional general appearance Overall: in no acute distress 08/16/2018 None Full Exam - General Respiratory respiratory effort/rhythm Overall: no retractions 08/16/2018 None Full Exam - General Respiratory respiratory effort/rhythm Overall: normal rate 08/16/2018 None Full Exam - General Respiratory auscultation Overall: breath sounds clear bilater ally 08/16/2018 None Full Exam - General Ears/Nose/Throat otoscopic exam Overall: external auditory canals clear 08/16/2018 None Full Exam - General Ears/Nose/Throat otoscopic exam Overall: tympanic membranes clear 08/16/2018 None Full Exam - General Ears/Nose/Throat oral cavity/pharynx/larynx Oropharynx: postnasal drainage 08/16/2018 None Full Exam - General Ears/Nose/Throat oral cavity/pharynx/larynx Oropharynx: erythema 08/16/2018 None Full Exam - General Cardiovascular auscultation of heart Overall: regular rate 08/16/2018 None Full Exam - General Cardiovascular auscultation of heart Overall: no murmurs 08/16/2018 None Full Exam - General Lymphatic neck nodes Left anterior cervical chain: shotty 08/16/2018 None Full Exam - General Lymphatic neck nodes Left anterior cervical chain: tender 08/16/2018 None Full Exam - General Lymphatic neck nodes Right anterior cervical chain: shott y 08/16/2018 None Full Exam - General Lymphatic neck nodes Right anterior cervical chain: tende r 08/16/2018 None Full Exam - General Neurologic mental status Overall: alert 9 None Full Exam - General Neurologic mental status Overall: oriented 08/16/2018 None Full Exam - General Constitutional general appearance Overall: well nourished 03/30/2018 None Full Exam - General Constitutional general appearance Overall: well developed 03/30/2018 None Full Exam - General Constitutional general appearance Overall: in no acute distress 03/30/2018 None Full Exam - General Neurologic mental status Overall: alert 8 None Full Exam - General Neurologic mental status Overall: oriented 03/30/2018 None Full Exam - General Psychiatric mood and affect Overall: normal mood and affect 03/30/2018 None Full Exam - General Respiratory auscultation Overall: breath sounds clear bilater ally 03/30/2018 None Full Exam - General Cardiovascular auscultation of heart Overall: regular rate 03/30/2018 None Full Exam - General Cardiovascular auscultation of heart Overall: normal heart sounds 03/30/2018 None Full Exam - General Cardiovascular extremities Overall: no clubbing 03/30/2018 None Full Exam - General Cardiovascular extremities Overall: No cyanosis 03/30/2018 None Full Exam - General Cardiovascular extremities Edema present: non-pitting 03/30/2018 None Full Exam - General Abdomen abdominal exam Overall: no masses 03/30/2018 None Full Exam - General Abdomen abdominal exam Overall: no tenderness 03/30/2018 None Full Exam - General Abdomen abdominal exam Overall: normal bowel sounds 03/30/2018 None Full Exam - General Abdomen abdominal exam Overall: soft 03/30/2018 None Full Exam - General Musculoskeletal gait and station Overall: normal gait 03/30/2018 None Full Exam - General Musculoskeletal gait and station Overall: normal station 03/30/2018 None Full Exam - General Ears/Nose/Throat otoscopic exam Overall: external auditory canals clear 03/30/2018 None Full Exam - General Ears/Nose/Throat otoscopic exam Overall: tympanic membranes clear 03/30/2018 None Full Exam - General Ears/Nose/Throat internal nose Overall: bilateral nasal cavities clear 03/30/2018 None Full Exam - General Ears/Nose/Throat oral cavity/pharynx/larynx Overall: oral mucosa clear 03/30/2018 None Full Exam - General Neck inspection of neck Overall: normal size 03/30/2018 None Full Exam - General Neck inspection of neck Overall: no masses 03/30/2018 None Full Exam - General Constitutional general appearance Overall: well nourished 03/19/2017 None Full Exam - General Constitutional general appearance Overall: well developed 03/19/2017 None Full Exam - General Constitutional general appearance Overall: in no acute distress 03/19/2017 None Full Exam - General Neurologic mental status Overall: alert 7 None Full Exam - General Neurologic mental status Overall: oriented 03/19/2017 None Full Exam - General Psychiatric mood and affect Overall: normal mood and affect 03/19/2017 None Full Exam - General Abdomen abdominal exam Overall: no masses 03/19/2017 None Full Exam - General Abdomen abdominal exam Overall: no tenderness 03/19/2017 None Full Exam - General Abdomen abdominal exam Overall: normal bowel sounds 03/19/2017 None Full Exam - General Abdomen abdominal exam Overall: soft 03/19/2017 None Full Exam - General Musculoskeletal spine, ribs and pelvis Spine: tender @ cervical spine 03/19/2017 None Full Exam - General Musculoskeletal spine, ribs and pelvis Spine: tender @ thoracic spine 03/19/2017 right upper Full Exam - General Integument inspection of skin Location: neck 03/19/2017 left lower lateral with 2 X 3 cm lipoma Full Exam - General Musculoskeletal spine, ribs and pelvis Spine: decreased rotation 03/19/2017 cervicals Full Exam - General Constitutional general appearance Overall: well developed 04/17/2016 None Full Exam - General Constitutional general appearance Overall: well nourished 04/17/2016 None Full Exam - General Constitutional general appearance Overall: in no acute distress 04/17/2016 None Full Exam - General Eyes conjunctiva/eyelids Overall: conjunctiva clear 04/17/2016 None Full Exam - General Eyes pupils and irises Overall: pupils equal, round, reacti ve to light and accomodation 04/17/2016 None Full Exam - General Ears/Nose/Throat external ear Overall: normal appearance 04/17/2016 None Full Exam - General Ears/Nose/Throat external nose Overall: benign appearance 04/17/2016 None Full Exam - General Ears/Nose/Throat lips/teeth/gingiva Overall: benign lips 04/17/2016 None Full Exam - General Ears/Nose/Throat oral cavity/pharynx/larynx Overall: oral mucosa clear 04/17/2016 None Full Exam - General Ears/Nose/Throat oral cavity/pharynx/larynx Overall: oropharyngeal mucosa clear 04/17/2016 None Full Exam - General Neck thyroid Overall: normal size None Full Exam - General Neck thyroid Overall: normal consistency 04/17/2016 None Full Exam - General Respiratory auscultation Overall: breath sounds clear bilater ally 04/17/2016 None Full Exam - General Respiratory respiratory effort/rhythm Overall: no retractions 04/17/2016 None Full Exam - General Respiratory respiratory effort/rhythm Overall: normal rate 04/17/2016 None Full Exam - General Cardiovascular auscultation of heart Overall: regular rate 04/17/2016 None Full Exam - General Cardiovascular auscultation of heart Overall: normal heart sounds 04/17/2016 None Full Exam - General Cardiovascular auscultation of heart Overall: no murmurs 04/17/2016 None Full Exam - General Cardiovascular inspection of carotid pulses Overall: strong, bilaterally equal, no bruits 04/17/2016 None Full Exam - General Cardiovascular inspection of pedal pulses Overall: strong, equal bilaterally 04/17/2016 None Full Exam - General Cardiovascular extremities Overall: no clubbing 04/17/2016 None Full Exam - General Cardiovascular extremities Overall: No edema 04/17/2016 None Full Exam - General Cardiovascular extremities Overall: No cyanosis 04/17/2016 None Full Exam - General Abdomen abdominal exam Overall: no tenderness 04/17/2016 None Full Exam - General Abdomen abdominal exam Overall: soft 04/17/2016 None Full Exam - General Abdomen abdominal exam Overall: no masses 04/17/2016 None Full Exam - General Abdomen abdominal exam Overall: normal bowel sounds 04/17/2016 None Full Exam - General Lymphatic neck nodes Overall: anterior cervical chain ahsan ign 04/17/2016 None Full Exam - General Lymphatic neck nodes Overall: posterior cervical chain be nign 04/17/2016 None Full Exam - General Integument inspection of skin Overall: no rash, lesions 04/17/2016 None Full Exam - General Neurologic mental status Overall: alert 6 None Full Exam - General Neurologic mental status Overall: oriented 04/17/2016 None Full Exam - General Musculoskeletal right upper extremity ROM - right shoulder: pain with adduction 01/18/2015 None Full Exam - General Musculoskeletal right upper extremity ROM - right shoulder: pain with abduction 01/18/2015 None Full Exam - General Neck thyroid Overall: normal size None Full Exam - General Neck thyroid Overall: normal consistency 01/18/2015 None Full Exam - General Neck thyroid Overall: nontender 01/18 None Full Exam - General Constitutional general appearance Overall: well nourished 01/18/2015 None Full Exam - General Constitutional general appearance Overall: well developed 01/18/2015 None Full Exam - General Constitutional general appearance Overall: in no acute distress 01/18/2015 None Full Exam - General Eyes pupils and irises Overall: pupils equal, round, reacti ve to light and accomodation 01/18/2015 None Full Exam - General Ears/Nose/Throat oral cavity/pharynx/larynx Oral mucosa: a normal exam 01/18/2015 None Full Exam - General Psychiatric orientation/consciousness Overall: oriented to person, place and time 01/18/2015 None Full Exam - General Musculoskeletal left upper extremity Inspection - left shoulder: a normal exam 01/18/2015 None Full Exam - General Musculoskeletal left upper extremity Palpation - left shoulder: a normal exam 01/18/2015 None Full Exam - General Musculoskeletal left upper extremity ROM - left shoulder: decreased abduction 01/18/2015 None Full Exam - General Musculoskeletal left upper extremity ROM - left shoulder: pain with abduction 01/18/2015 None Full Exam - General Ears/Nose/Throat hearing assessment Overall: hearing intact bilaterally 01/18/2015 None Full Exam - General Ears/Nose/Throat otoscopic exam Left tympanic membrane: a normal exam 01/18/2015 None Full Exam - General Ears/Nose/Throat otoscopic exam Right tympanic membrane: not visualized 01/18/2015 cerumen Full Exam - General Respiratory auscultation Overall: breath sounds clear bilater ally 01/18/2015 None Full Exam - General Respiratory respiratory effort/rhythm Overall: normal rate 01/18/2015 None Full Exam - General Respiratory respiratory effort/rhythm Overall: no retractions 01/18/2015 None Full Exam - General Cardiovascular auscultation of heart Overall: regular rate 01/18/2015 None Full Exam - General Cardiovascular auscultation of heart Overall: normal heart sounds 01/18/2015 None Full Exam - General Cardiovascular auscultation of heart Overall: no murmurs 01/18/2015 None Full Exam - General Cardiovascular extremities Overall: No edema 01/18/2015 None Full Exam - General Cardiovascular extremities Overall: No cyanosis 01/18/2015 None Full Exam - General Cardiovascular inspection of pedal pulses Overall: strong, equal bilaterally 01/18/2015 None Full Exam - General Cardiovascular inspection of carotid pulses Overall: strong, bilaterally equal, no bruits 01/18/2015 None Full Exam - General Abdomen abdominal exam Overall: no tenderness 01/18/2015 None Full Exam - General Abdomen abdominal exam Overall: soft 01/18/2015 None Full Exam - General Abdomen abdominal exam Overall: no masses 01/18/2015 None Full Exam - General Abdomen abdominal exam Overall: normal bowel sounds 01/18/2015 None Full Exam - General Neurologic mental status Overall: alert 5 None Full Exam - General Neurologic mental status Overall: oriented 01/18/2015 None Full Exam - General Constitutional general appearance Overall: well nourished 04/18/2013 None Full Exam - General Constitutional general appearance Overall: well developed 04/18/2013 None Full Exam - General Constitutional general appearance Overall: in no acute distress 04/18/2013 None Full Exam - General Neurologic mental status Overall: alert 3 None Full Exam - General Neurologic mental status Overall: oriented 04/18/2013 None Full Exam - General Psychiatric mood and affect Overall: normal mood and affect 04/18/2013 None Full Exam - General Abdomen abdominal exam Overall: no masses 04/18/2013 None Full Exam - General Abdomen abdominal exam Overall: normal bowel sounds 04/18/2013 None Full Exam - General Abdomen abdominal exam Overall: soft 04/18/2013 None Full Exam - General Abdomen abdominal exam Overall: no tenderness 04/18/2013 None Full Exam - General Neck inspection of neck Overall: normal size 04/18/2013 None Full Exam - General Neck inspection of neck Overall: no masses 04/18/2013 None Full Exam - General Neck thyroid Overall: normal size None Full Exam - General Neck thyroid Overall: nontender 04/18 None Full Exam - General Neck thyroid Overall: no mass lesions 04/18/2013 None Full Exam - General Constitutional general appearance Overall: well nourished 10/26/2012 None Full Exam - General Constitutional general appearance Overall: well developed 10/26/2012 None Full Exam - General Constitutional general appearance Overall: in no acute distress 10/26/2012 None Full Exam - General Psychiatric mood and affect Overall: normal mood and affect 10/26/2012 None Full Exam - General Neurologic mental status Overall: alert 3 None Full Exam - General Neurologic mental status Overall: oriented 10/26/2012 None Full Exam - General Respiratory auscultation Overall: breath sounds clear bilater ally 10/26/2012 None Full Exam - General Cardiovascular auscultation of heart Overall: regular rate 10/26/2012 None Full Exam - General Cardiovascular auscultation of heart Overall: normal heart sounds 10/26/2012 None Full Exam - General Cardiovascular auscultation of heart Overall: no murmurs 10/26/2012 None Full Exam - General Cardiovascular extremities Overall: no clubbing 10/26/2012 None Full Exam - General Cardiovascular extremities Overall: No edema 10/26/2012 None Full Exam - General Cardiovascular extremities Overall: No cyanosis 10/26/2012 None Full Exam - General Abdomen abdominal exam Overall: no masses 10/26/2012 None Full Exam - General Abdomen abdominal exam Overall: no tenderness 10/26/2012 None Full Exam - General Abdomen abdominal exam Overall: normal bowel sounds 10/26/2012 None Full Exam - General Abdomen abdominal exam Overall: soft 10/26/2012 None Full Exam - General Neck inspection of neck Overall: normal size 10/26/2012 None Full Exam - General Neck inspection of neck Overall: no masses 10/26/2012 None Full Exam - General Ears/Nose/Throat otoscopic exam Overall: external auditory canals clear 10/26/2012 None Full Exam - General Ears/Nose/Throat otoscopic exam Overall: tympanic membranes clear 10/26/2012 None Full Exam - General Ears/Nose/Throat internal nose Overall: bilateral nasal cavities clear 10/26/2012 None Full Exam - General Ears/Nose/Throat oral cavity/pharynx/larynx Overall: oral mucosa clear 10/26/2012 None Full Exam - General Musculoskeletal gait and station Overall: normal gait 10/26/2012 None Full Exam - General Musculoskeletal gait and station Overall: normal station 10/26/2012 None Full Exam - General Integument inspection of skin Overall: no rash, lesions 10/26/2012 None Full Exam - General Constitutional general appearance Overall: well nourished 02/02/2012 None Full Exam - General Constitutional general appearance Overall: well developed 02/02/2012 None Full Exam - General Constitutional general appearance Overall: in no acute distress 02/02/2012 None Full Exam - General Neurologic mental status Overall: alert 2 None Full Exam - General Neurologic mental status Overall: oriented 02/02/2012 None Full Exam - General Psychiatric mood and affect Overall: normal mood and affect 02/02/2012 None Full Exam - General Ears/Nose/Throat otoscopic exam Overall: external auditory canals clear 02/02/2012 None Full Exam - General Ears/Nose/Throat otoscopic exam Overall: tympanic membranes clear 02/02/2012 None Full Exam - General Ears/Nose/Throat internal nose Overall: bilateral nasal cavities clear 02/02/2012 None Full Exam - General Ears/Nose/Throat oral cavity/pharynx/larynx Overall: oral mucosa clear 02/02/2012 None Full Exam - General Respiratory auscultation Overall: breath sounds clear bilater ally 02/02/2012 None Full Exam - General Cardiovascular auscultation of heart Overall: regular rate 02/02/2012 None Full Exam - General Cardiovascular auscultation of heart Overall: normal heart sounds 02/02/2012 None Full Exam - General Cardiovascular auscultation of heart Overall: no murmurs 02/02/2012 None Full Exam - General Neck inspection of neck Overall: normal size 02/02/2012 None Full Exam - General Neck inspection of neck Overall: no masses 02/02/2012 None Full Exam - General Cardiovascular extremities Overall: no clubbing 02/02/2012 None Full Exam - General Cardiovascular extremities Overall: No edema 02/02/2012 None Full Exam - General Cardiovascular extremities Overall: No cyanosis 02/02/2012 None Full Exam - General Abdomen abdominal exam Overall: no masses 02/02/2012 None Full Exam - General Abdomen abdominal exam Overall: no tenderness 02/02/2012 None Full Exam - General Abdomen abdominal exam Overall: normal bowel sounds 02/02/2012 None Full Exam - General Abdomen abdominal exam Overall: soft 02/02/2012 None Full Exam - General Integument inspection of skin Overall: no rash, lesions 02/02/2012 None Full Exam - General Musculoskeletal spine, ribs and pelvis Overall: good posture 02/02/2012 None Full Exam - General Musculoskeletal spine, ribs and pelvis Overall: ribs benign 02/02/2012 None Full Exam - General Musculoskeletal spine, ribs and pelvis Overall: spine benign 02/02/2012 None Full Exam - General Musculoskeletal gait and station Overall: normal gait 02/02/2012 None Full Exam - General Musculoskeletal gait and station Overall: normal station 02/02/2012 None Full Exam - General Constitutional general appearance Overall: in no acute distress 08/28/2011 None Full Exam - General Constitutional general appearance Overall: well developed 08/28/2011 None Full Exam - General Constitutional general appearance Overall: well nourished 08/28/2011 None Full Exam - General Neurologic mental status Overall: alert 2 None Full Exam - General Neurologic mental status Overall: oriented 08/28/2011 None Full Exam - General Psychiatric mood and affect Overall: normal mood and affect 08/28/2011 None Full Exam - General Respiratory auscultation Right upper lung field: a normal exa m 08/28/2011 None Full Exam - General Respiratory auscultation Right middle lung field: a normal ex am 08/28/2011 None Full Exam - General Respiratory auscultation Right lower lung field: a normal exa m 08/28/2011 None Full Exam - General Respiratory auscultation Left lower lung field: a normal exam 08/28/2011 None Full Exam - General Respiratory auscultation Overall: breath sounds clear bilater ally 08/28/2011 None Full Exam - General Respiratory auscultation Left upper lung field: a normal exam 08/28/2011 None Full Exam - General Respiratory auscultation Diffuse: a normal exam 08/28/2011 None Full Exam - General Cardiovascular auscultation of heart Overall: no murmurs 08/28/2011 None Full Exam - General Cardiovascular auscultation of heart Overall: regular rate 08/28/2011 None Full Exam - General Cardiovascular auscultation of heart Overall: normal heart sounds 08/28/2011 None Full Exam - General Cardiovascular auscultation of heart S1: a normal exam 08/28/2011 None Full Exam - General Cardiovascular auscultation of heart S2: a normal exam 08/28/2011 None Full Exam - General Cardiovascular auscultation of heart Rhythm: regular rhythm 08/28/2011 None Full Exam - General Cardiovascular auscultation of heart Rate: regular rate 08/28/2011 None Full Exam - General Cardiovascular auscultation of heart S3 (ventricular gallop): present 08/28/2011 None Full Exam - General Ears/Nose/Throat otoscopic exam Overall: external auditory canals clear 08/28/2011 None Full Exam - General Ears/Nose/Throat otoscopic exam Overall: tympanic membranes clear 08/28/2011 None Full Exam - General Ears/Nose/Throat internal nose Turbinates: hypertrophy 08/28/2011 None Full Exam - General Ears/Nose/Throat oral cavity/pharynx/larynx Overall: oral mucosa clear 08/28/2011 None Full Exam - General Constitutional general appearance Overall: well nourished 10/09/2010 None Full Exam - General Constitutional general appearance Overall: well developed 10/09/2010 None Full Exam - General Constitutional general appearance Overall: in no acute distress 10/09/2010 None Full Exam - General Neurologic mental status Overall: alert 1 None Full Exam - General Neurologic mental status Overall: oriented 10/09/2010 None Full Exam - General Psychiatric mood and affect Overall: normal mood and affect 10/09/2010 None Full Exam - General Musculoskeletal spine, ribs and pelvis Spine: tender @ cervical spine 10/09/2010 None Full Exam - General Musculoskeletal spine, ribs and pelvis Spine: tender @ thoracic spine 10/09/2010 left trapezius with tende r point/knot in muscle Full Exam - General Integument inspection of skin Dermatitis: mole 10/09/2010 raised and irregular to left axilla appr ox 7mm, flat approx 6mm to right axilla Procedures Procedure Codes Date THER/PROPH/DIAG INJ SC/IM CPT-4: 79780 09/01/2018 KETOROLAC TROMETHAMI NE INJ CPT-4: J1885 09/01/2018 URINALYSIS NONAUTO W /O SCOPE CPT-4: 42036 06/21/2018 URINE CULTURE/ COLON Y COUNT CPT-4: 18162 06/21/2018 URINE CULTURE/ COLON Y COUNT CPT-4: 99621 02/07/2014 URINALYSIS NONAUTO W /O SCOPE CPT-4: 81102 02/07/2014 TDAP VACCINE 7 YRS/> IM CPT-4: 02310 01/19/2014 IMMUNIZATION ADMIN CPT- 4: 68557 01/19/2014 URINE CULTURE/ COLON Y COUNT CPT-4: 48076 01/03/2014 URINALYSIS NONAUTO W /O SCOPE CPT-4: 76188 01/03/2014 URINE CULTURE/ COLON Y COUNT CPT-4: 24835 11/25/2013 INJ TRIGGER POINT 1/ 2 MUSCL CPT-4: 52267 10/09/2010 TRIAMCINOLONE ACET I [place] NOS CPT-4: J3301 10/09/2010 METHYLPREDNISOLONE 4 0 MG INJ CPT-4: J1030 10/09/2010 Vital Signs Date Vital 09/01/2018 BMI: 32.0 Code: 23496-1 Heart Rate 1: 76 bpm Height: 5'2" Respiratory Rate: 20 bpm Temperature: 36.9 (C ) / 98.4 (F) Weight: 172 lbs 08/16/2018 Blood Pressure 1: 130/80 Code: 8480-6 Heart Rate 1: 91 bpm Respiratory Rate: 18 bpm SpO2: 97% Temperature: 36.7 (C ) / 98.1 (F) Weight: 169 lbs 03/30/2018 Blood Pressure 1: 136/82 Code: 8480-6 BMI: 30.3 Code: 17629-3 Heart Rate 1: 72 bpm Height: 5'2" Respiratory Rate: 20 bpm SpO2: 98% Temperature: 36.8 (C ) / 98.2 (F) Weight: 163 lbs 03/19/2017 Blood Pressure 1: 132/82 Code: 8480-6 BMI: 30.2 Code: 11437-8 Heart Rate 1: 72 bpm Height: 5'2" Respiratory Rate: 20 bpm Temperature: 36.6 (C ) / 97.9 (F) Weight: 165 lbs 04/17/2016 Blood Pressure 1: 124/82 Code: 8480-6 BMI: 29.6 Code: 34570-8 Heart Rate 1: 82 bpm Height: 5'2" Respiratory Rate: 22 bpm SpO2: 98% Temperature: 37.0 (C ) / 98.6 (F) Weight: 162 lbs 01/18/2015 Blood Pressure 1: 118/78 Code: 8480-6 BMI: 27.8 Code: 34707-7 Heart Rate 1: 78 bpm Height: 5'2" Respiratory Rate: 20 bpm Temperature: 36.3 (C ) / 97.3 (F) Weight: 152 lbs 04/18/2013 Blood Pressure 1: 110/62 Code: 8480-6 BMI: 26.2 Code: 95303-0 Heart Rate 1: 66 bpm Height: 5'2" Respiratory Rate: 22 bpm Temperature: 36.3 (C ) / 97.4 (F) Weight: 143 lbs 10/26/2012 Blood Pressure 1: 124/78 Code: 8480-6 BMI: 26.2 Code: 58194-7 Heart Rate 1: 76 bpm Height: 5'3" Respiratory Rate: 20 bpm Temperature: 36.6 (C ) / 97.9 (F) Weight: 148 lbs 02/02/2012 Blood Pressure 1: 122/80 Code: 8480-6 BMI: 26.2 Code: 83201-5 Heart Rate 1: 72 bpm Height: 5'3" Respiratory Rate: 20 bpm Temperature: 36.7 (C ) / 98.0 (F) Weight: 148 lbs 08/28/2011 Blood Pressure 1: 114/60 Code: 8480-6 BMI: 24.8 Code: 98075-8 Heart Rate 1: 72 bpm Height: 5'3" Respiratory Rate: 20 bpm Temperature: 36.5 (C ) / 97.7 (F) Weight: 140 lbs 01/07/2011 Blood Pressure 1: 120/74 Code: 8480-6 BMI: 27.1 Code: 43187-7 Height: 5'2" Weight: 148 lbs 10/09/2010 Blood Pressure 1: 114/72 Code: 8480-6 Heart Rate 1: 76 bpm Temperature: 36.6 (C) / 97.8 (F) Weight: 148 lbs Functional Status No Functional Status data History of Present Illness Symptom Name Status Resu lt Effective Date Notes Location in the left l ower back area 09/01/2018 None Quality discomfort 09/01/2018 None Onset and Resolution s udden in onset 09/01/2018 None Onset of Symptom 1 day s ago 09/01/2018 None Radiating down left leg 09/01/2018 None Quality numbness 09/01/2018 None Location on the left leg 09/01/2018 None Onset and Resolution s udden in onset 09/01/2018 None Onset of Symptom 1 day s ago 09/01/2018 None Onset of Symptom 3 wee ks ago 08/16/2018 None Onset of Symptom 3 wee ks ago 08/16/2018 None Onset of Symptom 3 wee ks ago 08/16/2018 None Quality yellow 08/16/2018 sometimes Quality clear 08/16/2018 None Annual Checkup Pap Smear normal results 1 year ago. 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 Annual Checkup Lifestyle no history of physical abuse 03/30/2018 None Annual Checkup Lifestyle no history of sexual abuse 03/30/2018 None Annual Checkup Lifestyle no history of verbal abuse 03/30/2018 None Annual Checkup Lifestyle regular seatbelt use 03/30/2018 None Annual Checkup Lifestyle family supportive of relationship 03/30/2018 None Annual Checkup Lifestyle satisfactory school experience 03/30/2018 None Annual Checkup Lifestyle satisfactory peer relationships 03/30/2018 None Annual Checkup Lifestyle normal amount of stress 03/30/2018 None Annual Checkup Nutrition and Exercise overweight 03/30/2018 None Annual Checkup Nutrition and Exercise balanced nutrition 03/30/2018 None Annual Checkup Nutrition and Exercise minimal exercise 03/30/2018 None Annual Checkup Reproductive System D evelopment normal development 03/30/2018 None Annual Checkup Sexual Activity is monogamous 03/30/2018 None Annual Checkup Health Guidance self-breast exam 03/30/2018 None Annual Checkup Health Guidance HIV precautions 03/30/2018 None Annual Checkup Health Guidance STD precautions 03/30/2018 None Annual Checkup Health Guidance prevention 03/30/2018 None Annual Checkup Health Guidance control options 03/30/2018 None Annual Checkup Health Guidance tobacco, drugs and alcohol avoidance 03/30/2018 None Annual Checkup Health Guidance regular exercise 03/30/2018 None Annual Checkup Health Guidance safety belt use 03/30/2018 None Annual Checkup Health Guidance helmet use 03/30/2018 None Annual Checkup Health Guidance hearing loss prevention 03/30/2018 None Annual Checkup Health Guidance limiting UV/sun exposure 03/30/2018 None Annual Checkup Health Guidance suicide prevention 03/30/2018 None Annual Checkup Health Guidance depression symptoms 03/30/2018 None Annual Checkup Control none 03/30/2018 None gastroesophageal reflux Quality chronic 03/19/2017 None gastroesophageal reflux Quality stable 03/19/2017 Patient would like PCP to continue omeprazole 40mg daily neck pain Quality dull 03/19/2017 None neck pain Location on th e right 03/19/2017 None neck pain Quality tightn ess 03/19/2017 None neck pain Onset and Resolution ongoing. 03/19/2017 Having decreased ROM issu es lipoma Location on the p osterior left neck area 03/19/2017 None lipoma Onset and Resolution ongoing 03/19/2017 None Annual Checkup Pap Smear last normal performed on 1-2 years 04/17/2016 None weight gain/obesity Location globally 04/17/2016 None weight gain/obesity Quality acute 04/17/2016 None weight gain/obesity Quality worsening 04/17/2016 None weight gain/obesity Onset and Resolution ongoing 04/17/2016 None weight gain/obesity Onset of Symptom 6+ months ago 04/17/2016 None Annual Checkup Pap Smear normal results 04/17/2016 None Annual Checkup Menstrual History menarche at age 12 04/17/2016 None Annual Checkup Control none 04/17/2016 hysterectomy Annual Checkup Obstetrical History 4 total pregnancies 04/17/2016 None Annual Checkup Obstetrical History 3 living children 04/17/2016 None Annual Checkup Sexual Activity is sexually active 04/17/2016 None Annual Checkup Sexual Activity is monogamous 04/17/2016 None Annual Checkup Lifestyle no history of physical abuse 04/17/2016 None Annual Checkup Lifestyle no history of sexual abuse 04/17/2016 None Annual Checkup Lifestyle no history of verbal abuse 04/17/2016 None Annual Checkup Lifestyle regular seatbelt use 04/17/2016 None Annual Checkup Lifestyle family supportive of relationship 04/17/2016 None Annual Checkup Lifestyle satisfactory peer relationships 04/17/2016 None Annual Checkup Lifestyle normal amount of stress 04/17/2016 None Annual Checkup Nutrition and Exercise overweight 04/17/2016 None Annual Checkup Nutrition and Exercise regular diet 04/17/2016 None Annual Checkup Nutrition and Exercise minimal exercise 04/17/2016 None Annual Checkup Health Guidance self-breast exam 04/17/2016 None Annual Checkup Health Guidance tobacco, drugs and alcohol avoidance 04/17/2016 None Annual Checkup Health Guidance regular exercise 04/17/2016 None Annual Checkup Health Guidance safety belt use 04/17/2016 None Annual Checkup Health Guidance limiting UV/sun exposure 04/17/2016 None Annual Checkup Health Guidance depression symptoms 04/17/2016 None Annual Checkup Immunizations tetanus- diphtheria booster 04/17/2016 01/19/14 Annual Checkup Reproductive System D evelopment normal development 04/17/2016 None Annual Checkup Reproductive System D evelopment normal menarche 04/17/2016 None well woman exam (40-65 years) Pap Smear last normal performed on summer 201301/18/2015 None well woman exam (40-65 years) Contro l hysterectomy 01/18/2015 2007 shoulder pain Location d iffusely 01/18/2015 None shoulder pain Quality ac kimo 01/18/2015 None shoulder pain Quality te nderness 01/18/2015 None shoulder pain Onset and Resolution unpredictable 01/18/2015 None shoulder pain Onset of Symptom 2 months ago 01/18/2015 None arm weakness Length of Episodes 30-60 seconds 01/18/2015 None arm weakness Location ar ms 01/18/2015 None arm weakness Onset of Symptom during childhood 01/18/2015 None arm weakness Onset of Symptom 1-2 months ago 01/18/2015 None paresthesia Location isabel aterally 01/18/2015 arms paresthesia Quality pins and needles 01/18/2015 None paresthesia Quality numb ness 01/18/2015 None paresthesia Quality inte rmittent 01/18/2015 None paresthesia Onset of Symptom 1-2 months ago 01/18/2015 None well woman exam (40-65 years) Menstr ual History regular menses 01/18/2015 None dysphagia Quality acute 04/18/2013 None dysphagia Quality worsen ing 04/18/2013 None dysphagia Quality interm ittent 04/18/2013 None nasal allergies Location in both nares 02/02/2012 None nasal allergies Onset and Resolution ongoing 02/02/2012 uses claritin prn dizziness Quality feelin gs of unsteadiness 08/28/2011 None dizziness Quality sense of motion 08/28/2011 None dizziness Quality sense of room spinning 08/28/2011 None headache Quality improvi ng 08/28/2011 None postnasal drip Quality t hick 08/28/2011 None neck pain Onset of Symptom 1 weeks ago 10/09/2010 None mole check Location-Extremities in the left axilla 10/09/2010 None mole check Location-Extremities in the right axilla 10/09/2010 None Advance Directives No Advance Directive data Encounters Encounter Performer Loca tion Codes Date ([id number]) OFFICE/OUTPA TIENT VISIT EST Diagnosis: Low back pain[ICD10: M54.5] Diagnosis: Radiculopathy, lumbar region[ICD10: M54.16] Ghassan GOMEZ appsplit [facility] CPT-4: 51071 09/01/2018 ([id number]) OFFICE/OUTPA TIENT VISIT EST Diagnosis: Acute upper respiratory infection, unspecified[ICD10: J06.9] Angeli CRUZ DO [facility] CPT-4: 91871 08/16/2018 ([id number]) NURSE/OUTPAT IENT VISIT EST Diagnosis: Urinary tract infection, site not specified[ICD10: N39.0] Diagnosis: Hematuria, unspecified[ICD10: R31.9] Ghassan GOMEZ DO [facility] CPT-4: 29662 06/21/2018 ([id number]) PREV VISIT E AGE 40-64 Diagnosis: Encounter for general adult medical examination without abnormal findings[ICD10: Z00.00] Diagnosis: Gastro-esophageal reflux disease without esophagitis[ICD10: K21.9] Ghassan CRUZ DO [facility] CPT-4: 74360 03/30/2018 ([id number]) OFFICE/OUTPA TIENT VISIT EST Diagnosis: Gastro-esophageal reflux disease without esophagitis[ICD10: K21.9] Diagnosis: Cervicalgia[ICD10: M54.2] Diagnosis: 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, 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] Ghassan CRUZ DO [facility] CPT-4: 07843 03/19/2017 ([id number]) PREV VISIT E AGE 40-64 Diagnosis: Encounter for general adult medical examination without abnormal findings[ICD10: Z00.00] Diagnosis: Abnormal weight gain[ICD10: R63.5] Diagnosis: Body mass index (BMI) 29.0-29.9, adult[ICD10: Z68.29] Delilah CRUZ DO [facility] CPT-4: 62351 04/17/2016 ([id number]) PREV VISIT E AGE 40-64 Diagnosis: ROUTINE MEDICAL EXAM[ICD9: V70.0] Diagnosis: Shoulder pain, bilateral[ICD9: 719.41] Liz Villegas RENDER DO [facility] CPT-4: 45789 01/18/2015 ([id number]) OFFICE/OUTPA TIENT VISIT EST Diagnosis: URINARY TRACT INFECTION[ICD9: 599.0] Ghassan BOBO NDER DO [facility] CPT-4: 64443 02/07/2014 ([id number]) OFFICE/OUTPA TIENT VISIT EST Diagnosis: VACCINE FOR TDAP[ICD10: Z23] Ghassan CRUZ DO [facility] CPT-4: 13509 01/19/2014 ([id number]) OFFICE/OUTPA TIENT VISIT EST Diagnosis: URINARY TRACT INFECTION[ICD9: 599.0] Ghassan BOBO NDER DO [facility] CPT-4: 99310 01/03/2014 ([id number]) OFFICE/OUTPA TIENT VISIT EST Diagnosis: Flank pain[ICD9: 789.00] Ghassan BOBONDGIANNA DO [facility] CPT-4: 34396 11/25/2013 ([id number]) OFFICE/OUTPA TIENT VISIT EST Diagnosis: DYSPHAGIA, NOS[ICD9: 787.20] Diagnosis: Foot pain[ICD9: 729.5] Ghassan BOBONDGIANNA DO [facility] CPT-4: 10507 04/18/2013 ([id number]) PREV VISIT E ST AGE 40-64 Diagnosis: ROUTINE MEDICAL EXAM[ICD9: V70.0] Ghassan BOBO NDER DO [facility] CPT-4: 64227 10/26/2012 ([id number]) PREV VISIT E ST AGE 40-64 Diagnosis: ROUTINE MEDICAL EXAM[ICD9: V70.0] Ghassan BOBO NDER DO [facility] CPT-4: 54515 02/02/2012 OFFICE/OUTPATIENT SIT EST Diagnosis: SINUSITIS, ACUTE[ICD9: 461.9] Diagnosis: Benign positional vertigo[ICD9: 386.11] Ghassan BOOB NDER DO [facility] CPT-4: 21878 08/28/2011 ([id number]) OFFICE/OUTPA TIENT VISIT EST Ghassan FERRELL BrunildaStephanie ARGUETAMelissa DO [facility] CPT-4: 81058 10/09/2010 Plan of Care Planned Activity Notes C odes Status Date Visit Diagnosis Plan: Low back pain Discussion: Stretches, Ice, topical muscle rub OMT done Toradol now Celebrex and flexeril Recheck in 1 week if persists or worsening ICD-9 : 724.2 ICD-10 : M54.5 09/01/2018 Appointment: Ghassan Cruz WPtel: [address] [place], [place] [id number] ACUTE ILLNESS 09/01/2018 Patient Education: cyclobenzaprine- Opti mizeRX Coupon [id number] [email or web address] Completed 09/01/2018 Visit Diagnosis Plan: Acute upper respir atory infection, unspecified Discussion: zpack and medrol pack prescr ibed for symptom management. ok to continue with claritin daily. instructed to use humidifier at home in room to assist with drainage, especially with symptoms worse upon awakening. ICD-9 : 465.9 ICD-10 : J06.9 08/16/2018 Appointment: Angeli Rust [address] [place], [place] [id number] ACUTE ILLNESS 08/16/2018 Patient Education: Medrol (Driss)- OptimizeRX Coupon [phone] [id number] [email or web address] Completed 08/16/2018 Appointment: Ghassan Cruz WPtel: [address] [place] [address] UA 06/21/2018 Visit Diagnosis Plan: Gastro-esophageal reflux disease without esophagitis Discussion: Stable on omeprazole--patien t has had esophageal stricture in past as well as overproduction in acid on pH manometry so has to stay with PPI and discussed repeat EGD if having worsening symptoms or dysphagia ICD-9 : 530.81 ICD-10 : K21.9 03/30/2018 Visit Diagnosis Plan: Encounter for [facility] adult medical examination without abnormal findings Discussion: Update fasting lab Discussed diet/exercise at length including weight bearing exercise At least 1000-1500mg calcium a day between diet and supplement in addition to Vitamin D Seeing 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 y early ICD-9 : V70.9 ICD-10 : Z00.00 03/30/2018 Appointment: Ghassan Cruz WPtel: [phone] [id number] Annual Well Visit 03/30/2018 Patient Education: Patient Medication Summary Completed 03/30/2018 Visit Diagnosis Plan: 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, face and neck Discussion: Discussed observe vs removal ICD-9 : 214.1 ICD-10 : D17.0 03/19/2017 Visit Diagnosis Plan: Cervicalgia Di scussion: Start PT ICD-9 : 723.1 ICD-10 : M54.2 03/19/2017 Visit Diagnosis Plan: Gastro-esophageal reflux disease without esophagitis Discussion: Continue omeprazole Discusse d assisted use of PPIs and risk but patient has tried H2 Blockers and has breakthrough symptoms Start chewable MV daily ICD-9 : 530.81 ICD-10 : K21.9 03/19/2017 Appointment: [facility] [phone] [id number] [facility]VIEW 03/19/2017 Patient Education: Patient Medication Summary Completed 03/19/2017 Visit Plan: Fasting labs ordered - cbc, cmp, lipids, tsh, free t4 Weight loss counseling provided Phentermine #1 prescribed Recheck visit in office with me in 1 month Will continue until BMI <27 or 4-6 months total Discussed adverse side effects of phentermine to monitor for - stop if any occur 04/17/2016 Visit Plan: Fasting labs ordered - cbc, cmp, lipids, tsh, free t4 Weight loss counseling provided Phentermine #1 prescribed Recheck visit in office with me in 1 month Will continue until BMI <27 or 4-6 months total Discussed adverse side effects of phentermine to monitor for - stop if any occur 04/17/2016 Appointment: [facility] [address] [facility] Annual Well Visit 04/17/2016 Patient Education: Patient Medication Summary Completed 04/17/2016 Appointment: Liz Bolaños WPtel: [address] [place] [address] ACUTE ILLNESS 04/12/2015 Visit Plan: Will return for fasting labs - CBC, CMP, TSH, Free T4, Lipid Panel Start Shoulder Stretches and Bilateral ROM exercises Ibuprofen 800 mg PO bid Recommended follow-up with Nicole Mayer 01/18/2015 Visit Plan: Will return for fasting labs - CBC, CMP, TSH, Free T4, Lipid Panel Start Shoulder Stretches and Bilateral ROM exercises Ibuprofen 800 mg PO bid Recommended follow-up with Nicole Mayer 01/18/2015 Visit Plan: Will return for fasting labs - CBC, CMP, TSH, Free T4, Lipid Panel Start Shoulder Stretches and Bilateral ROM exercises Ibuprofen 800 mg PO bid Recommended follow-up with Nicole Mayer 01/18/2015 Appointment: Liz Bolaños WPtel: [address] [place] [address] 01/17 appt confirmed cn Annual Well Visit 01/18/2015 Patient Education: Patient Medication Summary Completed 01/18/2015 Appointment: Ghassan Cruz WPtel: [address] [place] [address] UA 02/07/2014 Patient Education: Patient Medication Summary Completed 02/07/2014 Appointment: Ghassan Cruz WPtel: [address] [place] [address] US INJECTION 01/19/2014 Patient Education: Patient Medication Summary Completed 01/19/2014 Appointment: Liz Bolaños WPtel: [address] [place] [address] ACUTE ILLNESS 01/04/2014 Appointment: Ghassan Cruz WPtel: [address] [place] [address] UA 01/03/2014 Patient Education: Patient Medication Summary Completed 01/03/2014 Appointment: Ghassan Cruz WPtel: [address] [place], [place] [phone] UA 11/25/2013 Patient Education: Patient Medication Summary Completed 11/25/2013 Visit Plan: Proceed with EGD Contin ue Zantac but increase to BID Seeing podiatry for feet but will try Voltaren gel 04/18/2013 Appointment: Ghassan Cruz WPtel: [address] [place] [address] ACUTE ILLNESS 04/18/2013 Patient Education: Patient Medication Summary Completed 04/18/2013 Appointment: Ghassan Cruz WPtel: [address] [place] [address] FOLLOW UP 01/25/2013 Visit Plan: Start daily Calcium wit h Vit D 500mg and fish oil 1gram daily Zyrtec routinely and add flonase Add Zantac 300mg q HS If dysphagia continues then will need EGD Check fasting lab 10/26/2012 Appointment: Ghassan Cruz WPtel: [address] [place] [address] Annual Well Visit 10/26/2012 Patient Education: Patient Medication Summary Completed 10/26/2012 Visit Plan: Check fasting lab 02/02/2012 Appointment: Ghassan Cruz WPtel: [address] [place] [address] PAP 02/02/2012 Patient Education: Patient Medication Summary Completed 02/02/2012 Visit Plan: Vestibular exercises Me clizine 25mg po TID Nasonex BID 08/28/2011 Appointment: Ghassan Cruz WPtel: [address] [place] [address] ACUTE ILLNESS 08/28/2011 Patient Education: Patient Medication Summary Completed 08/28/2011 Appointment: Ghassan Cruz WPtel: [address] [place] [address] BP CHECK 01/07/2011 Patient Education: Patient Medication Summary Completed 01/07/2011 Visit Plan: OMT done to thoracics T steel rigger point injection as above Arthrotec 75mg po BID Pt will call in 5 days on how neck doing Pt will return at later date for mole removal to left axilla 10/09/2010 Appointment: Ghassan Cruz WPtel: [phone] [facility] ACUTE ILLNESS 10/09/2010 Patient Education: Patient Medication Summary Completed 10/09/2010 Appointment: Ghassan Cruz WPtel: [phone] [id number] WT CHECK 11/07/2009 Patient Education: Patient Medication Summary Completed 11/07/2009 Referral: Ghassan Cruztel: [phone] [id number] 04/18 patient will schedule appt Initiated Instructions Comment . Start daily Calciu m with Vit D 500mg and fish oil 1gram daily Zyrtec routinely and add flonase Add Zantac 300mg q HS If dysphagia continues then will need EGD Check fasting lab . Will return for fa sting labs - CBC, CMP, TSH, Free T4, Lipid Panel Start Shoulder Stretches and Bilateral ROM exercises Ibuprofen 800 mg PO bid Recommended follow-up with Nicole Mayer . Will return for fa sting labs - CBC, CMP, TSH, Free T4, Lipid Panel Start Shoulder Stretches and Bilateral ROM exercises Ibuprofen 800 mg PO bid Recommended follow-up with Nicole Mayer . Will return for fa sting labs - CBC, CMP, TSH, Free T4, Lipid Panel Start Shoulder Stretches and Bilateral ROM exercises Ibuprofen 800 mg PO bid Recommended follow-up with Nicole Mayer . Vestibular exercis es Meclizine 25mg po TID Nasonex BID . Check fasting lab . Fasting labs order ed - cbc, cmp, lipids, tsh, free t4 Weight loss counseling provided Phentermine #1 prescribed Recheck visit in office with me in 1 month Will continue until BMI <27 or 4-6 months total Discussed adverse side effects of phentermine to monitor for - stop if any occur . Fasting labs order ed - cbc, cmp, lipids, tsh, free t4 Weight loss counseling provided Phentermine #1 prescribed Recheck visit in office with me in 1 month Will continue until BMI <27 or 4-6 months total Discussed adverse side effects of phentermine to monitor for - stop if any occur . Proceed with EGD Continue Zantac but increase to BID Seeing podiatry for feet but will try Voltaren gel . OMT done to thorac ics Trigger point injection as above Arthrotec 75mg po BID Pt will call in 5 days on how neck doing Pt will return at later date for mole removal to left axilla
--- OUTSIDE RECORDS SUMMARY | 2019-10-15 03:34 | XMS REPORT | Continuity of Care Document ---
Author Organization Unknown Address Unknown Phone Unavailable Allergies Active Description Code Type Severity Reaction Onset Reported/Identified Relationship to Patient Clinical Status Yes NKANo Known Allergies NKA Miscellaneous Allergy Unknown N/A 06/14/2007 Yes No Known Drug Allergies [id number] Drug Allergy Unknown N/A 10/06/2019 Medications There is no data. Problems Date Dx Coded Attending Type Code Diagnosis Diagnosed By 05/12/2011 Ot 216.5 05/12/2011 Ot 614.1 05/12/2011 Ot 614.6 05/12/2011 Ot 620.2 06/20/2014 Ot 241.0 06/20/2014 Ot 611.72 06/20/2014 Ot V76.12 06/20/2014 Ot 241.0 06/20/2014 Ot 625.8 06/20/2014 Ot 709.00 06/20/2014 Ot V72.63 06/20/2014 Ot V74.8 06/20/2014 Ot 241.0 06/20/2014 Ot 611.72 06/20/2014 Ot 793.89 06/20/2014 Ot 793.82 06/20/2014 Ot V76.12 06/23/2014 OWEN LION, GRETA [place] Ot V76.12 06/23/2014 OWEN LION, GRETA [place] Ot V76.12 07/31/2014 OWEN LION, GRETA [place] Ot V76.12 11/09/2015 Ot 241.0 11/09/2015 Ot 611.72 11/09/2015 Ot V76.12 11/09/2015 Ot 241.0 11/09/2015 Ot 625.8 11/09/2015 Ot 709.00 11/09/2015 Ot V72.63 11/09/2015 Ot V74.8 11/09/2015 Ot 241.0 11/09/2015 Ot 611.72 11/09/2015 Ot 793.89 11/09/2015 Ot 793.82 11/09/2015 Ot V76.12 11/09/2015 GRETA WEAVER MD Ot V76.12 11/22/2015 GRETA WEAVER MD Ot Z12.31 ENCNTR SCREEN MAMMOGRAM FOR MALIGNANT NE 03/24/2017 Ot 793.82 INC ONCLUSIVE MAMMOGRAM 03/24/2017 Ot V76.12 OTH SCREEN MAMMO- MALIGN NEOPLASM OF ALEX 03/24/2017 GRETA WEAVER MD Ot V76.12 OTH SCREEN MAMMO-MALIGN NEOPLASM OF ALEX 03/24/2017 GRETA WEAVER MD Ot Z12.31 ENCNTR SCREEN MAMMOGRAM FOR MALIGNANT NE 04/04/2017 ORENDER DO, MILENA S Ot M54.2 CERVICALGIA 04/15/2017 ORENDER DO, MILENA S Ot M54.2 CERVICALGIA 05/02/2017 ORENDER DO, MILENA S Ot M54.2 CERVICALGIA 06/12/2017 Ot 793.82 INC ONCLUSIVE MAMMOGRAM 06/12/2017 Ot V76.12 OTH SCREEN MAMMO- MALIGN NEOPLASM OF ALEX 06/12/2017 GRETA WEAVER MD Ot V76.12 OTH SCREEN MAMMO-MALIGN NEOPLASM OF ALEX 06/12/2017 GRETA WEAVER MD Ot Z12.31 ENCNTR SCREEN MAMMOGRAM FOR MALIGNANT NE 06/12/2017 ORENDER DO, MILENA S Ot M54.2 CERVICALGIA 07/17/2017 GRETA WEAVER MD Ot Z12.31 ENCNTR SCREEN MAMMOGRAM FOR MALIGNANT NE 07/29/2017 Ot 793.82 INC ONCLUSIVE MAMMOGRAM 07/29/2017 Ot V76.12 OTH SCREEN MAMMO- MALIGN NEOPLASM OF ALEX 07/29/2017 GRETA WEAVER MD Ot V76.12 OTH SCREEN MAMMO-MALIGN NEOPLASM OF ALEX 07/29/2017 GRETA WEAVER MD Ot Z12.31 ENCNTR SCREEN MAMMOGRAM FOR MALIGNANT NE 07/29/2017 GRETA WEAVER MD Ot Z12.31 ENCNTR SCREEN MAMMOGRAM FOR MALIGNANT NE 08/21/2017 Ot 793.82 INC ONCLUSIVE MAMMOGRAM 08/21/2017 Ot V76.12 OTH SCREEN MAMMO- MALIGN NEOPLASM OF ALEX 08/21/2017 GRETA WEAVER MD Ot V76.12 OTH SCREEN MAMMO-MALIGN NEOPLASM OF ALEX 08/21/2017 GRETA WEAVER MD Ot Z12.31 ENCNTR SCREEN MAMMOGRAM FOR MALIGNANT NE 08/21/2017 GRETA WEAVER MD, Ot Z12.31 ENCNTR SCREEN MAMMOGRAM FOR MALIGNANT NE 01/20/2018 Ot 793.82 INC ONCLUSIVE MAMMOGRAM 01/20/2018 Ot V76.12 OTH SCREEN MAMMO- MALIGN NEOPLASM OF ALEX 01/20/2018 GRETA WAEVER MD Ot V76.12 OTH SCREEN MAMMO-MALIGN NEOPLASM OF ALEX 01/20/2018 GRETA WEAVER MD Ot Z12.31 ENCNTR SCREEN MAMMOGRAM FOR MALIGNANT NE 01/20/2018 GRETA WEAVER MD, Ot Z12.31 ENCNTR SCREEN MAMMOGRAM FOR MALIGNANT NE 07/21/2018 GRETA WEAVER MD Ot Z12.31 ENCNTR SCREEN MAMMOGRAM FOR MALIGNANT NE 07/26/2018 GRETA WEAVER MD Ot Z12.31 ENCNTR SCREEN MAMMOGRAM FOR MALIGNANT NE 08/11/2018 GRETA WEAVER MD Ot Z12.31 ENCNTR SCREEN MAMMOGRAM FOR MALIGNANT NE 09/10/2018 GRETA WEAVER MD, Ot V76.12 OTH SCREEN MAMMO-MALIGN NEOPLASM OF ALEX 09/10/2018 GRETA WEAVER MD Ot Z12.31 ENCNTR SCREEN MAMMOGRAM FOR MALIGNANT NE 09/10/2018 GRETA WEAVER MD Ot Z12.31 ENCNTR SCREEN MAMMOGRAM FOR MALIGNANT NE 09/10/2018 GRETA WEAVER MD Ot Z12.31 ENCNTR SCREEN MAMMOGRAM FOR MALIGNANT NE 09/29/2018 CECELIA SANDY Ot M54.16 RADICULOPATHY, LUMBAR REGION 10/18/2018 CECELIA SANDY Ot M54.16 RADICULOPATHY, LUMBAR REGION 12/12/2018 CECELIA SANDY Ot M54.16 RADICULOPATHY, LUMBAR REGION 12/13/2018 CECELIA SANDY Ot M54.16 RADICULOPATHY, LUMBAR REGION 09/20/2019 ANGELI LANDA MARY Ot 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 W H93.19 Tinnitus Barrera Angeli 09/30/2019 Milena Cruz S. W R03.0 Elevated blood pressure reading Jerrell Landa lyson 09/30/2019 Milena Cruz S. W Z00.00 Encounter for general adult medical exam ination without abnormal findings Angeli Landa 09/30/2019 Georgina Cruzline S. W Z12.39 Screening for malignant neoplasm of breast G mariannemoo Angeli 10/06/2019 BEST JUAREZ MD Ot Z01.81 8 ENCOUNTER FOR OTHER PREPROCEDURAL EXAMIN Procedures There is no data. Results Test Result Range Methicillin resistant Staphylococcus aur eus (MRSA) screening culture - 10/13/19 07:50 Methicillin resistant Staphylococcus aureus (MRSA) scr eening culture NEG NRG Encounters ACCT No. Visit Date/Time Discharge Status Pt. Type Provider Facility Loc./Unit Complaint [id number] 01/26/2019 15:13:03 01/26/2019 23:59:5 9 CLS Outpatient Milena Cruz [id number] 10/13/2019 07:23:00 020 12:45:00 DIS Outpatient BEST JUAREZ MD [facility] LIPOMAS BACK OF NECK AN D LEFT FLANK [id number] 10/06/2019 05:32:00 12:59:00 DIS Outpatient BEST JUAREZ MD [facility] PREOP LIPOMAS BACK OF NECK AN D LEFT FLANK [id number] 09/19/2019 15:08:00 23:59:59 CLS Outpatient ANGELI LANDA PRACTICAL NURSING INSTRUCTOR [facility] RAD SCREENING [id number] 07/07/2019 07:26:00 23:59:59 CLS Preadmit GRETA WEAVER MD [facility] RAD SCREENING [id number] 05/31/2019 15:37:00 23:59:59 CLS Preadmit GRETA WEAVER MD [facility] RAD SCREENING [id number] 12/13/2018 00:13:00 23:59:59 CLS Preadmit CECELIA SANDY Vi [facility] REHAB BACK PAIN [id number] 09/29/2018 13:45:00 00:01:00 DIS Outpatient CECELIA SANDY [facility] REHAB BACK PAIN [id number] 07/20/2018 14:25:00 23:59:59 CLS Outpatient GRETA WEAVER MD [facility] RAD SCREENING [id number] 05/25/2018 15:56:00 23:59:59 CLS Preadmit GRETA WEAVER MD [facility] RAD ROUTINE [id number] 07/03/2017 14:33:00 23:59:59 CLS Outpatient GRETA WEAVER MD [facility] RAD SCREENING [id number] 05/03/2017 03:35:00 23:59:59 CLS Preadmit MILENA CRUZ DO [facility] REHAB CERVICALGIA WIT H SPASM [id number] 04/30/2017 14:31:00 00:01:00 DIS Outpatient MILENA CRUZ DO S [facility] REHAB CERVICALGIA WIT H SPASM [id number] 05/01/2017 13:40:00 017 23:59:59 CLS Preadmit GRETA WEAVER MD [facility] RAD ROUTINE SCREENI [id number] 11/09/2015 14:24:00 016 23:59:59 CLS Outpatient GRETA WEAVER MD [facility] RAD SCREENING [id number] 06/20/2014 14:43:00 014 23:59:59 CLS Outpatient GRETA WEAVER MD [facility] RAD SCREENING [id number] 08/10/2012 14:43:00 Document Registration [id number] 09/29/2011 12:51:00 Document Registration [id number] 05/21/2011 12:17:00 Document Registration [id number] 05/12/2011 05:59:00 Document Registration [id number] 05/07/2011 10:42:00 Document Registration [id number] 05/06/2011 11:14:00 Document Registration [id number] 05/05/2011 10:41:00 Document Registration
== END 2019-10-13 12:45 | disposition home or self-care (01) ==
LOC: SDC 07:23
PROVIDERS: ATTEND Surgery
DX: D17.0 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, face and neck (principal); D17.1 Benign lipomatous neoplasm of skin and subcutaneous tissue of trunk; D22.5 Melanocytic nevi of trunk; K21.9 Gastro-esophageal reflux disease without esophagitis; Z11.2 Encounter for screening for other bacterial diseases
CPT/HCPCS: 87081; 94664

== ENCOUNTER → 2020-10-03 | Outpatient (CLI) | payer BC, OTHER ==
[~2020-10-03] MED LIST changes: +HYDR-3870 PO; +HYDR-4227 PO
--- NOTE | 2020-10-04 10:46 | Diagnostic Imaging Report ---
INDICATION: Routine screening. COMPARISON is made to prior mammograms of 09/19/2019 and 07/20/2018. 2-D and 3-D bilateral screening mammography was performed with CAD. Both breasts are heterogeneously dense, limiting the sensitivity of mammography. The parenchymal pattern is stable. No mass or malignant-appearing microcalcifications are seen. Axillae are unremarkable. IMPRESSION: BI-RADS Category 1. No mammographic features suspicious for malignancy are identified. ACR BI-RADS Category 1: Negative. Result letter will be mailed to the patient. Note: At least 10% of breast cancer is not imaged by mammography. Dictated by: Dictated on workstation # [id number]
== END ==
LOC: RAD 07:30
PROVIDERS: ATTEND Family Medicine
DX: Z12.31 Encounter for screening mammogram for malignant neoplasm of breast (principal)
CPT/HCPCS: 77063; 77067

== ENCOUNTER → 2021-10-18 | Outpatient (CLI) | payer BC, OTHER ==
--- NOTE | 2021-10-18 12:37 | Diagnostic Imaging Report ---
INDICATION: Routine screening. COMPARISON: 10/03/2020 and 09/19/2019. TECHNIQUE: 2D and 3D bilateral screening mammography was performed with CAD. FINDINGS: Both breasts are heterogeneously dense, limiting the sensitivity of mammography. The parenchymal pattern is stable. No mass or malignant-appearing microcalcifications are seen. The axillae are unremarkable. IMPRESSION: No mammographic features suspicious for malignancy are identified. ACR BI-RADS Category 1: Negative. Result letter will be mailed to the patient. Note: At least 10% of breast cancer is not imaged by mammography. Dictated by: Dictated on workstation # [id number]
== END ==
LOC: RAD 11:00
PROVIDERS: ATTEND Family Medicine
DX: Z12.31 Encounter for screening mammogram for malignant neoplasm of breast (principal)
CPT/HCPCS: 77063; 77067

== ENCOUNTER → 2022-12-15 | Outpatient (CLI) | payer BC, OTHER ==
[~2022-12-15] MED LIST changes: +OMEP20TA56 PO; -OMEP20TA7 PO
--- NOTE | 2022-12-15 09:06 | Diagnostic Imaging Report ---
INDICATION: Routine screening. COMPARISON: 10/18/2021 and 10/03/2020. TECHNIQUE: 2D and 3D bilateral screening mammography was performed with CAD. FINDINGS: Both breasts are heterogeneously dense, limiting the sensitivity of mammography. The parenchymal pattern is stable. No mass or malignant-appearing microcalcifications are seen. The axillae are unremarkable. IMPRESSION: No mammographic features suspicious for malignancy are identified. ACR BI-RADS Category 2: Benign findings. Result letter will be mailed to the patient. Note: At least 10% of breast cancer is not imaged by mammography. Dictated by: Dictated on workstation # [id number]
== END ==
LOC: RAD 07:16
PROVIDERS: ATTEND Family Medicine
DX: Z12.31 Encounter for screening mammogram for malignant neoplasm of breast (principal)
CPT/HCPCS: 77063; 77067